=== PATIENT | male | born 1940 | race Caucasian/White ===

== ENCOUNTER 2016-05-17 16:06 | Inpatient (IN) | payer MEDICARE, MEDICAID ==
[~2016-05-17] VITALS: Ht 175.3 cm; Wt 70.0 kg
[~2016-05-17 16:06] MED LIST: AMLO-147 PO; ASPI81TA3 PO; ATOR40TA68 PO; BENA40TA41 PO; CHLO25TA13 PO; FAMO-18 PO; METO5TAB2 PO; MTF1000T PO; NOVO7030 SC; ONDA4TAB35 PO
[2016-05-17 16:18] VITALS: Ht 175.3 cm; Wt 70.0 kg
[2016-05-17] MEDS ORDERED: ONDANSETRON 4 MG INJ IV STA (17:19)
[2016-05-17] MEDS ORDERED: FAMOTIDINE 20 MG INJ IV STA (17:19)
[2016-05-17] MEDS ORDERED: SOD CHLORIDE 0.9% 1,000 ML IV STA (17:19)
[2016-05-17 17:33] LABS: HEMATOCRIT 31.3 % (42.0-52.0); HEMOGLOBIN 10.6 g/dl (14.0-18.0); MEAN CORPUSCULAR HEMOGLOBIN 29.5 pg (29.0-33.0); MEAN CORPUSCULAR HGB CONC 33.9 g/dl (32.0-37.0); MEAN CORPUSCULAR VOLUME 87.1 fl (82.0-101.0); MEAN PLATELET VOLUME 7.8 fl (7.4-10.4); PLATELET COUNT 322 10^3/UL (140-440); RED BLOOD COUNT 3.59 10^6/ul (4.70-6.10); RED CELL DISTRIBUTION WIDTH 12.6 % (11.5-14.5); UNCORRECTED WBC 16.4 10^3/ul (4.8-10.8); WHITE BLOOD COUNT 16.4 10^3/ul (4.8-10.8)
[2016-05-17 17:37] LABS: CONDITION 1; LH ANALYZER COMMENTS 1
[2016-05-17 17:46] LABS: ALBUMIN 4.1 g/dl (3.3-4.9); CHLORIDE 94 mmol/L (97-110)
[2016-05-17 17:47] LABS: POTASSIUM 4.9 mmol/L (3.5-5.1); SODIUM 137 mmol/L (135-144)
[2016-05-17 17:49] LABS: ANION GAP 20 (8-16); ASPARTATE AMINO TRANSFERASE 18 IU/L (15-46); BILIRUBIN,INDIRECT 0.5 mg/dl (0-1.1); BILIRUBIN,TOTAL 0.5 mg/dl (0.2-1.3); CARBON DIOXIDE 28 mmol/L (21-31); CREATININE 1.54 mg/dl (0.61-1.24); TOTAL PROTEIN 7.8 g/dl (6.1-8.1)
[2016-05-17 17:50] LABS: ALANINE AMINOTRANSFERASE 19 IU/L (13-69); ALKALINE PHOSPHATASE 108 IU/L (42-121); BLOOD UREA NITROGEN 32 mg/dl (7-20); CALCIUM 9.2 mg/dl (8.4-10.2)
[2016-05-17 17:59] LABS: INR 1.14; PROTIME 14.6 Sec (12.2-14.2); PT RATIO 1.1
[2016-05-17 18:00] LABS: PARTIAL THROMBOPLASTIN TIME 35.7 Sec (25.0-35.0)
[2016-05-17] MEDS ORDERED: CEFEPIME 2GM/50 ML (PMX) 50 ML IVPB STA (18:02)
[2016-05-17] MEDS ORDERED: SODIUM CHLORIDE 0.9% 1L BAG IV* STA (18:02)
[2016-05-17 18:05] LABS: AMYLASE < 30 U/L (11-123); GLUCOSE 441 mg/dl (70-220); TROPONIN-I < 0.010 ng/ml (0.00-0.12)
[2016-05-17 18:24] LABS: MONOCYTE # 0.5 10^3/ul (0.3-0.9); NEUTROPHIL # 14.8 10^3/ul (1.6-7.5)
[2016-05-17 18:26] LABS: ANISOCYTOSIS OCCASIONAL; PLATELET ESTIMATE PLT APPEAR ADEQUATE
--- NOTE | 2016-05-17 18:26 | ERA ---
ER Documentation Chief Complaint Date/Time DATE: 05/17/16 TIME: 18:07 Chief Complaint VOMITING , DIARRHEA , DIZZINESS X 2 DAYS HPI This is a 75-year-old male with a known history of insulin dependant diabetes mellitus and hypertension who presents to the emergency department complaining of 48 hours of multiple episodes of loose watery stools and nonbloody nonbilious emesis. The patient had a tactile fever with shaking and chills. He denies any abdominal pain. He has not been able to take his medications due to the emesis. The patient denies any shortness of breath at rest or exertion. The patient denies any chest pain or pressure that radiates to the neck or back or jaw. Roughly 1 month ago the patient was seen by the vascular surgeon Dr. Acevedo, as he has a known history of long-standing foot ulcers. The patient has known right lower extremity arthrosclerosis and a nonhealing diabetic right foot ulcer he has been wearing diabetic shoes as instructed and denies any pain or discharge from his foot ulcer at this time. 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 ROS All systems reviewed and are negative except as per history of present illness. Medications Home Meds Reported Medications Insulin Isophan/Regular (Humulin 70/30) 100 Units/Ml Susp, 40 UNIT SC AC BREAKFAST, EA 11/28/15 Benazepril Hcl* (Benazepril Hcl*) 40 Mg Tablet, 40 MG PO DAILY, #30 TAB 11/28/15 Atorvastatin* (Atorvastatin*) 40 Mg Tablet, 40 MG PO QHS, #30 TAB 07/24/15 Aspirin* (Aspirin* Chew) 81 Mg Tab.chew, 81 MG PO DAILY, TAB.CHEW 07/24/15 Chlorthalidone* (Chlorthalidone*) 25 Mg Tablet, 25 MG PO DAILY, TAB 07/24/15 Metformin* (Glucophage*) 1,000 Mg Tablet, 1000 MG PO BID, #60 TAB 07/24/15 Amlodipine Besylate* (Amlodipine Besylate*) 10 Mg Tablet, 10 MG PO DAILY, #30 TAB 07/24/15 Discontinued Reported Medications Insulin Isophan/Regular (Humulin 70/30) 100 Units/Ml Susp, 35 UNIT SC AC DINNER , EA 11/28/15 Discontinued Scripts Famotidine* (Pepcid*) 20 Mg Tablet, 20 MG PO BID for 30 Days, #60 TAB Prov:SERA THAKKAR V. [employer] SUPERVISOR 12/03/15 Metoclopramide Hcl (Reglan) 5 Mg Tab, 5 MG PO Q6H Y for VOMITTING, #30 TAB Prov:THAKKARSERA DEGROOT V. PARAMEDIC SUPERVISOR 12/03/15 Ondansetron Hcl* (Zofran* ODT) 4 mg -ODT Tab.disper, 4 MG PO Q4H Y for NAUSEA AND OR VOMITING, #30 TAB Prov:THAKKARABBIA V. PARAMEDIC SUPERVISOR 12/03/15 Ondansetron Hcl* (Zofran* ODT) 4 mg -ODT Tab.disper, 4 MG PO Q6 Y for NAUSEA AND /OR VOMITING, #20 TAB Prov:KELLEY ADDISON 11/28/15 Allergies Allergies: Coded Allergies: No Known Allergy (Unverified , 05/17/16) PMhx/Soc History of Surgery: Yes (Right 5th toe amputation) Anesthesia Reaction: No Hx Neurological Disorder: No Hx Respiratory Disorders: No Hx Cardiac Disorders: Yes (HTN) Hx Psychiatric Problems: No Hx Miscellaneous Medical Probl: Yes (Dyslipidemia, DM ) Hx Alcohol Use: No Hx Substance Use: No Hx Tobacco Use: No Smoking Status: Never smoker Physical Exam Vitals Vital Signs Date Time Temp Pulse Resp B/P Pulse Ox O2 Delivery O2 Flow Rate FiO2 05/17/16 20:00 89 16 153/75 99 Room Air 05/17/16 18:00 97 16 159/80 100 Room Air 05/17/16 17:24 97 159/79 100 Room Air 05/17/16 16:18 98.9 98 18 149/70 98 Physical Exam Constitutional:Well-developed. Well-nourished. HEENT:Normocephalic. Atraumatic.Pupils were equal round reactive to light. Dry mucous membranes.No tonsillar exudates. Neck: No nuchal rigidity. No lymphadenopathy. No posterior cervical spine tenderness or step-offs. Respiratory: Not using accessory muscles of respiration.Lungs were clear to auscultation bilaterally. No rhonchi. No rales. No wheezing. Cardiovascular: Regular rate regular rhythm.No murmurs. No rubs were appreciated.S1, S2 normal. Distal pulses are palpable 2+ bilaterally. GI: Abdomen was soft. Nontender. Non Distended. No pulsatile abdominal masses or bruits. No rebound. No guarding. Bowel sounds were present and normal. Muscle skeletal: Full range of motion of both the upper and lower extremities bilaterally.Normal muscle tone.No assymetrical calf tenderness or swelling. Skin: No petechia, no purpura. No lesions on the palms or the soles of the feet. No maculopapular rash. 2 cm x 2 cm well-circumscribed stage II ulcer on the plantar surface of the left fifth metatarsal. No purulent drainage. No tenderness fluctuance or induration NEURO: Patient was alert, awake, orientated x3.No facial droop. Gait observed and normal with no ataxia.Speech had regular rate and rhythm. No focal neurological deficits. Result Diagram: 05/17/16 1700 05/17/16 170 Results 24 hrs Laboratory Tests Test 05/17/16 17:00 05/17/16 18:03 Activated Partial Thromboplast Time 35.7Sec Alanine Aminotransferase (ALT/SGPT) 19IU/L Albumin 4.1g/dl Albumin/Globulin Ratio 1.10 Alkaline Phosphatase 108IU/L Amylase Level < 30U/L Anion Gap 20 Anisocytosis OCCASIONAL Aspartate Amino Transf (AST/SGOT) 18IU/L Band Neutrophils % 1.0% Blood Urea Nitrogen 32mg/dl Calcium Level 9.2mg/dl Carbon Dioxide Level 28mmol/L Chloride Level 94mmol/L Creatinine 1.54mg/dl Direct Bilirubin 0.00mg/dl Globulin 3.70g/dl Glucose Level 441mg/dl Hematocrit 31.3% Hemoglobin 10.6g/dl INR International Normalized Ratio 1.14 Indirect Bilirubin 0.5mg/dl Lactic Acid Level 1.2mmol/L Lipase 15U/L Lymphocytes # 1.010^3/ul Lymphocytes % 6.0% Mean Corpuscular Hemoglobin 29.5pg Mean Corpuscular Hemoglobin Concent 33.9g/dl Mean Corpuscular Volume 87.1fl Mean Platelet Volume 7.8fl Monocytes # 0.510^3/ul Monocytes % 3.0% Neutrophils # 14.810^3/ul Neutrophils % 90.0% Platelet Count 58619^3/UL Platelet Estimate PLT APPEAR ADEQUATE Potassium Level 4.9mmol/L Prothrombin Time 14.6Sec Prothrombin Time Ratio 1.1 Red Blood Count 3.5910^6/ul Red Cell Distribution Width 12.6% Sodium Level 137mmol/L Total Bilirubin 0.5mg/dl Total Protein 7.8g/dl Troponin I < 0.010ng/ml White Blood Count 16.410^3/ul Arterial Blood HCO3 26.1mmol/L Arterial Blood Base Excess 1.4mmol/L Arterial Blood Oxygen Saturation 95.7mmHG Maxime Test ACCEPTAB Arterial Blood Gas Puncture Site Right Radial Arterial Blood Carboxyhemoglobin 0.3% Arterial Blood Date Drawn 05/17/2016 7:06:08 PM Arterial Blood Methemoglobin 0.2% Arterial Blood pCO2 (Temp correct) 41.6mmhg Arterial Blood pH (Temp corrected) 7.416 Arterial Blood pO2 (Temp corrected) 82.0mmHG Blood Gas A-a O2 Differential 17.9mmHg Blood Gas Actual Respiration Rate 16 Blood Gas Modality ROOM AIR Blood Gas Notified Time 05/17/2016 7:18:46 PM Blood Gas Notified Whom JMD Blood Gas Specimen Source Blood arterial Blood Gas Temperature 37.0C FiO2 21.0% Oxyhemoglobin Percent 95.2% Total Hemoglobin 10.9g/dl Current Medications Medications (Trade) Dose Ordered Sig/Lynn Route PRN Reason Start Time Stop Time Status Last Admin Dose Admin Sodium Chloride (NS) 1,000 ml @ 1,000 mls/hr Q1H STAT IV 05/17/16 17:19 05/17/16 18:18 DC Ondansetron HCl (Zofran Inj) 4 mg ONCE STAT IV 05/17/16 17:19 05/17/16 17:20 DC 05/17/16 18:38 Famotidine (Pepcid Iv) 20 mg ONCE STAT IV 05/17/16 17:19 05/17/16 17:20 DC 05/17/16 18:38 Sodium Chloride 2110 ml 2,110 ml BOLUS OVER 2 HOURS STAT IV* 05/17/16 18:02 05/17/16 18:05 DC 05/17/16 18:42 Cefepime HCl 50 ml @ 100 mls/hr ONCE STAT IVPB 05/17/16 18:02 05/17/16 18:31 DC 05/17/16 18:38 Vancomycin HCl (Vancocin) 250 ml @ 125 mls/hr ONCE ONCE IVPB 05/17/16 18:30 05/17/16 20:29 DC 05/17/16 19:50 Insulin Human Lispro (Humalog) 10 unit ONCE STAT SC 05/17/16 20:21 05/17/16 20:26 DC 05/17/16 20:42 Procedures/MDM This patient presented to the emergency department with vomiting and diarrhea and a known history of insulin-dependent diabetes mellitus. The patient had clinical dehydration and IV access was established by nursing staff. The patient was placed on a waste reclaimer continuous pulse oximetry. The patient was hyperglycemic with a blood glucose of 441 with no ketosis. Arterial blood gas showed no acidosis. The patient's hyperglycemia was treated with IV fluid rehydration and subcutaneous insulin. 12 Lead EKG tracing ordered and reviewed by myself showed: Normal sinus rhythm of 99 bpm and no arrhythmia. HI interval normal. QRS duration normal. No ST segment elevation No ST segment depression. No changes consistent with acute ischemia. The patient had hyperglycemia without ketosis. Leukocytosis with white blood cell count of 16.4. The patient had SIRS criteria and therefore 2 sets of blood cultures urine cultures were obtained as well as a lactic acid. The patient received a 30 cc/kg bolus of normal saline as he did appear to be severely clinically dehydrated. Antiemetics are given to the patient which included Zofran and Reglan. The patient was started on empiric antibiotics for an unknown source of the leukocytosis given vancomycin and ceftriaxone Observation Note: Time: 6 hours Family Hx: No Hypertension Evaluation: Multiple exams showed no improvement of the patient's symptoms as the patient continued to have emesis despite the antiemetics. The patient had no reproducible abdominal pain or peritoneal signs and therefore did not obtain a CT scan of the abdomen. The patient will be admitted to the panel physician Dr. Raymundo in serious condition with an anticipated stay of greater than 2 midnights the medical surgical floor for IV fluid resuscitation. Departure Diagnosis: Primary Impression: Intractable nausea and vomiting Qualified Code: R11.2 - Intractable vomiting with nausea, unspecified vomiting type Additional Impression: Hyperglycemia without ketosis Condition: Serious ROSHNI DE PAZ May 17, 2016 18:23
[2016-05-17] MEDS ORDERED: VANCOMYCIN 1 GM (PMX) 250 ML IVPB ONE (18:30)
[2016-05-17 19:18] LABS: AADO2 Arterial 17.9 mmHg (7.0-24.0); Allen Test ACCEPTAB; Arterial Base Excess 1.4 mmol/L (-3.0-3); Arterial COHb 0.3 % (0.0-3.0); Arterial Fraction of Oxyhgb 95.2 % (93.0-99.0); Arterial HCO3 26.1 mmol/L (22.0-26.0); Arterial MetHb 0.2 % (0.0-1.5); Arterial Total Hemglobin 10.9 g/dl (12.0-18.0); MODE ROOM AIR
[2016-05-17] MEDS ORDERED: INSULIN LISPRO 100 UNIT/ML VIAL SC STA (20:21)
--- NOTE | 2016-05-17 21:05 | RADRPT ---
PROCEDURE: XR Chest. CLINICAL INDICATION: Hyperglycemia. TECHNIQUE: Single frontal view of the chest was obtained. COMPARISON: 12/02/2015 FINDINGS: The cardiomediastinal silhouette is normal size. Pulmonary vasculature is within normal limits. Th e lungs are clear. There is mild aortic calcification. No signs of pleural fluid or pneumothorax are seen. The osseous structures and soft tissues are unre markable. IMPRESSION: No evidence for active cardiopulmonary disease. Mild aortic calcification. RPTAT: HBST .Arcenio Kemp MD, MD Date Time Electronically viewed and signed by .Arcenio Kemp MD, on 05/17/2016 21:04 .T/
[2016-05-17] MEDS ORDERED: ONDANSETRON 4 MG INJ IV PRN ×2 (22:30→23:30)
[2016-05-17] MEDS ORDERED: ACETAMINOPHEN 325 MG TAB PO PRN ×2 (22:30→23:30)
[2016-05-17] MEDS ORDERED: METOCLOPRAMIDE 10 MG INJ IV ONE (22:30)
[2016-05-17 22:42] LABS: ADD UMIC YES; URINE BILIRUBIN (Dip) NEGATIVE (NEGATIVE); URINE BLOOD (Dip) 1+ (NEGATIVE); URINE COLOR LT. YELLOW (YELLOW); URINE GLUCOSE (Dip) >=1000 % (NEGATIVE); URINE KETONES (Dip) NEGATIVE (NEGATIVE); URINE LEUKOCYTE ESTERASE (Dip) NEGATIVE (NEGATIVE); URINE NITRITE (Dip) NEGATIVE (NEGATIVE); URINE TOTAL PROTEIN (Dip) 2+ (NEGATIVE); URINE UROBILINOGEN (Dip) 0.2 E.U./dL (0.1-1.0)
--- NOTE | 2016-05-17 23:18 | HP ---
Date/Time of Note Date/Time of Note DATE: 05/17/16 TIME: 23:02 Assessment/Plan VTE Prophylaxis VTE Prophylaxis Intervention: heparin Lines/Catheters IV [facility]from [facility]): Saline Lock Assessment/Plan Assessment/Plan 75 yo male with a past medical history of type II DM, dyslipidemia, essential hypertension, PVD, right foot chronic ulcer, who came in because of intractable nausea/vomiting and abdominal pain. 1. Intractable N/V - gastroenteritis vs diabetic gastroparesis - will admit the patient to med/surg, continue with zofran, start reglan, IVF, cipro/flagyl. If the abdominal pain does not get better, will obtain a CT abd/pelvis at that time 2. ARF - 2/2 to dehydration - acute on chronic - continue with IVF, renally adjust medications, avoid nephrotoxins 3. Leukocytosis 2/2 to #1 - monitor trend, continue with blood cultures, stool cultures, IV antibiotics 4. Type II DM - uncontrolled - will continue with ISS, Lantus/Novolog scheduled , check [id number] 5. Essential Hypertension - continue with ACEI/norvasc/chlorthalidone, hydralazine prn for sbp > 160 6. Dyslipidemia - continue with statin, check TSH/Lipid panel 7. Anemia of chronic CKD - will monitor H/H, if < 8 g/dL transfuse PRBCS 8. PVD - monitor for acute changes 9. Chronic right foot ulceration - plantar aspect - wound care consult 10. GI ppx - pepcid IV 11. DVT ppx - heparin answered all of his questions. as per clinical course. this history and physical took greater then 45 minutes to complete HPI/ROS Admit Date/Time Admit Date/Time 05/17/2016, 11:02 pm Hx of Present Illness 75 yo male with a past medical history of type II DM, dyslipidemia, essential hypertension, PVD, right foot chronic ulcer, who came in because of intractable nausea/vomiting and abdominal pain. He states that over the last several days, he has been having these symptoms. They are getting worse, with poor appetite, and cannot hold anything down. He does have fevers/chills, dizziness and malaise. Denies eating any new foods, recent travel or sick contacts. He had a similar presentation in November 2015, which he was admitted here for. Denies any chest pain, shortness of breath, loss of consciousness, headaches, urinary irregularities, hematuria, although he states it's very concentrated. ED course: IVF, Zofran, Vanc/Cefepime ROS 14 point review of systems completed, please refer to HPI for any positive findings PMH/Family/Social Past Medical History diabetic neuropathy, PVD Medical History: coronary artery disease, diabetes, high cholesterol, hypertension Past Surgical History right fifth toe amputation, repeat surgeries for diabetic foot ulcerations Family History Significant Family History: no pertinent family hx Social History Alcohol Use: none Smoking Status: Never smoker Drug Use: none Exam/Review of Systems Vital Signs Vitals Vital Signs Date Time Temp Pulse Resp B/P Pulse Ox O2 Delivery O2 Flow Rate FiO2 05/17/16 20:00 89 16 153/75 99 Room Air 05/17/16 16:18 98.9 Exam Exam Gen Pretty: moderate distress 2/2 to abdominal pain, AAOx4 HEENT: NC/AT, PERRLA, EOMI, no pharyngeal erythema, no tonsillar exudates, no lymphadenopathy, no JVD, no carotid bruits NECK: supple, no thyromegaly THORAX: symmetrical, no obvious deformities CV: S1S2, RRR, no M/G/R Lungs: CTAB no W/C/R/R Abd: soft, mild tenderness to palpation, ND, + hyperactive BS, no rebound, no guarding, neg HSM EXT: no edema, no ecchymosis, no clubbing, FROM Neuro: CN II-XII grossly intact, no focal deficits Psych:fair mood and affect Skin: C/D/I Labs Result Diagram: 05/17/16 1700 05/17/16 1700 Procedures Procedures CXR IMPRESSION: No evidence for active cardiopulmonary disease. Mild aortic calcification. PAULY JORDAN MD May 17, 2016 23:13
[2016-05-17 23:19] LABS: BACTERIA,URINE FEW; SQUAMOUS EPITHELIAL CELL,UR FEW
[2016-05-17] MEDS ORDERED: DOCUSATE SODIUM 100 MG CAP PO PRN (23:30)
[2016-05-17] MEDS ORDERED: morphine 2 MG INJ IV PRN (23:30)
[2016-05-17] MEDS ORDERED: NACL 0.9% 3 ML SYG IV SCH (23:30)
[2016-05-17] MEDS ORDERED: METOCLOPRAMIDE 10 MG INJ IV PRN (23:30)
[2016-05-18 00:21] LABS: CHOL/HDL RATIO 4.9 RATIO; MAGNESIUM 2.2 mg/dl (1.7-2.5)
[2016-05-18 00:52] LABS: THYROID STIMULATING HORMONE 1.62 MIU/L (0.465-4.680)
[2016-05-18 01:13] VITALS: PULSE 84; TEMP 98
[2016-05-18] MEDS: ACCUCHECK AT 2AM (Patients on SS coverage) XX SCH (02:00)
[2016-05-18 02:08] VITALS: BP 152/70; RESP 22
[2016-05-18] MEDS: SOD CHLORIDE 0.9% 1,000 ML IV SCH ×3 (02:32→22:53)
[2016-05-18] MEDS: metroNIDAZOLE 500 MG/NS (PMX) 100 ML IVPB SCH ×2 (05:39→13:46)
[2016-05-18 07:23] LABS: BASOPHIL # 0.1 10^3/ul (0.0-0.1); BASOPHILS % 0.5 % (0.0-2.0); EOSINOPHILS % 0.4 % (0.0-7.0); HEMATOCRIT 28.7 % (42.0-52.0); HEMOGLOBIN 9.8 g/dl (14.0-18.0); LYMPHOCYTES # 1.2 10^3/ul (0.8-2.9); LYMPHOCYTES % 11.1 % (15.0-51.0); MEAN CORPUSCULAR HEMOGLOBIN 30.1 pg (29.0-33.0); MEAN CORPUSCULAR HGB CONC 34.3 g/dl (32.0-37.0); MEAN CORPUSCULAR VOLUME 87.9 fl (82.0-101.0); MEAN PLATELET VOLUME 7.9 fl (7.4-10.4); MONOCYTE # 0.7 10^3/ul (0.3-0.9); NEUTROPHIL # 8.9 10^3/ul (1.6-7.5); PLATELET COUNT 222 10^3/UL (140-440); RED BLOOD COUNT 3.26 10^6/ul (4.70-6.10); UNCORRECTED WBC 10.9 10^3/ul (4.8-10.8); WHITE BLOOD COUNT 10.9 10^3/ul (4.8-10.8)
[2016-05-18 07:34] LABS: CONDITION 1
[2016-05-18 07:35] VITALS: BP 133/75; RESP 20
[2016-05-18 07:42] LABS: POTASSIUM 4.3 mmol/L (3.5-5.1)
[2016-05-18 07:44] LABS: CREATININE 1.1 mg/dl (0.61-1.24)
[2016-05-18 07:45] LABS: CALCIUM 8.5 mg/dl (8.4-10.2)
[2016-05-18] MEDS: INSULIN ASPART [NOVOLOG] 3 ML PEN SC SCH ×7 (08:13→20:39)
[2016-05-18] MEDS: HEPARIN 5,000 UNIT/0.5 ML SYG SC SCH ×2 (08:14→20:38)
[2016-05-18] MEDS: FAMOTIDINE 20 MG INJ IV SCH ×2 (08:15→20:34)
[2016-05-18] MEDS: ASPIRIN 81 MG TAB PO SCH (08:16)
[2016-05-18] MEDS: CHLORTHALIDONE 25 MG TAB PO SCH (08:16)
[2016-05-18] MEDS: BENAZEPRIL 40 MG TAB PO SCH (08:16)
[2016-05-18] MEDS: AMLODIPINE 10 MG TAB PO SCH (08:17)
[2016-05-18] MEDS ORDERED: CIPROFLOXACIN 400MG/D5W 200 ML IVPB SCH (09:00)
--- NOTE | 2016-05-18 15:12 | PN ---
Date/Time of Note Date/Time of Note DATE: 05/18/16 TIME: 15:06 Assessment/Plan VTE Prophylaxis VTE Prophylaxis Intervention: heparin Lines/Catheters IV Catheter Type (from Nrs): Peripheral IV Urinary Cath still in place: No Assessment/Plan Assessment/Plan 1. Acute gastroenteritis, improving, start diet, IVF 2. ARF - 2/2 to dehydration - acute, improved 3. Leukocytosis 2/2 to #1 - monitor trend, continue with blood cultures, stool cultures, IV antibiotics 4. Type II DM - uncontrolled - will continue with ISS, Lantus/Novolog scheduled 5. Essential Hypertension - continue with ACEI/norvasc/chlorthalidone, hydralazine prn for sbp > 160 6. Dyslipidemia - continue with statin, check TSH/Lipid panel 7. Anemia of chronic CKD - will monitor H/H, if < 8 g/dL transfuse PRBCS 8. PVD - monitor for acute changes 9. Chronic right foot ulceration - plantar aspect - wound care consult 10. GI ppx - pepcid IV 11. DVT ppx - heparin Subjective 24 Hr Interval Summary Free Text/Dictation no nausea or vomiting today, no diarrhea. still weak Exam/Review of Systems Vital Signs Vitals Vital Signs Date Time Temp Pulse Resp B/P Pulse Ox O2 Delivery O2 Flow Rate FiO2 05/18/16 07:35 97.9 95 20 133/75 97 05/18/16 02:08 Room Air Intake and Output 05/17/16 05/17/16 05/18/16 15:00 23:00 07:00 Intake Total 250 ml Balance 250 ml Exam Constitutional: alert, oriented, well developed Psych: nl mood/affect, no complaints Head: atraumatic, normocephalic Eyes: EOMI, PERRL, nl conjunctiva, nl lids, nl sclera ENMT: mucosa pink and moist, nl external ears & nose, nl lips & teeth, nl nasal mucosa & septum Neck: non-tender, supple Respiratory: clear to auscultation, normal air movement Cardiovascular: nl pulses, regular rate and rhythm Gastrointestinal: nl liver, spleen, other (mild epigatric tenderness), soft Musculoskeletal: nl extremities to inspection, nl gait and stance Extremities: normal pulses Neurological: VERIFICATION ENGINEER II-XII intact, nl mental status, nl speech, nl strength Skin: nl turgor, rash or lesions Lymph: nl lymph nodes Results Result Diagram: 05/18/16 0600 05/18/16 0600 Results 24 hrs Laboratory Tests Test 05/17/16 17:00 05/17/16 18:03 05/17/16 22:09 05/18/16 06:00 Activated Partial Thromboplast Time 35.7 H Alanine Aminotransferase (ALT/SGPT) 19 Albumin 4.1 Albumin/Globulin Ratio 1.10 Alkaline Phosphatase 108 Amylase Level < 30 Anion Gap 20 H 17 H Anisocytosis OCCASIONAL Aspartate Amino Transf (AST/SGOT) 18 Band Neutrophils % 1.0 Blood Urea Nitrogen 32 H 24 H Calcium Level 9.2 8.5 Carbon Dioxide Level 28 25 Chloride Level 94 L 104 # Cholesterol Level 168 Cholesterol/HDL Ratio 4.9 Creatinine 1.54 H 1.10 Direct Bilirubin 0.00 Globulin 3.70 H Glucose Level 441 *H 146 # HDL Cholesterol 34 Hematocrit 31.3 L 28.7 L Hemoglobin 10.6 L 9.8 L Hemoglobin A1c 10.4 H INR International Normalized Ratio 1.14 Indirect Bilirubin 0.5 LDL Cholesterol, Calculated 113 Lactic Acid Level 1.2 Lipase 15 L Lymphocytes # 1.0 1.2 Lymphocytes % 6.0 L 11.1 L Magnesium Level 2.2 Mean Corpuscular Hemoglobin 29.5 30.1 Mean Corpuscular Hemoglobin Concent 33.9 34.3 Mean Corpuscular Volume 87.1 87.9 Mean Platelet Volume 7.8 7.9 Monocytes # 0.5 0.7 Monocytes % 3.0 6.0 Neutrophils # 14.8 H 8.9 H Neutrophils % 90.0 H 82.0 H Platelet Count 322 # 222 # Platelet Estimate PLT APPEAR ADEQUATE Potassium Level 4.9 4.3 Prothrombin Time 14.6 H Prothrombin Time Ratio 1.1 Red Blood Count 3.59 L 3.26 L Red Cell Distribution Width 12.6 13.0 Sodium Level 137 142 Thyroid Stimulating Hormone (TSH) 1.620 Total Bilirubin 0.5 Total Protein 7.8 Triglycerides Level 106 Troponin I < 0.010 White Blood Count 16.4 #H 10.9 #H Arterial Blood HCO3 26.1 H Arterial Blood Base Excess 1.4 Arterial Blood Oxygen Saturation 95.7 Maxime Test ACCEPTAB Arterial Blood Gas Puncture Site Right Radial Arterial Blood Carboxyhemoglobin 0.3 Arterial Blood Date Drawn 05/17/2016 7:06:08 PM Arterial Blood Methemoglobin 0.2 Arterial Blood pCO2 (Temp correct) 41.6 Arterial Blood pH (Temp corrected) 7.416 Arterial Blood pO2 (Temp corrected) 82.0 Blood Gas A-a O2 Differential 17.9 Blood Gas Actual Respiration Rate 16 Blood Gas Modality ROOM AIR Blood Gas Notified Time 05/17/2016 7:18:46 PM Blood Gas Notified Whom JMD Blood Gas Specimen Source Blood arterial Blood Gas Temperature 37.0 FiO2 21.0 Oxyhemoglobin Percent 95.2 Total Hemoglobin 10.9 L Urine Bacteria FEW Urine Bilirubin NEGATIVE Urine Clarity CLEAR Urine Color LT. YELLOW Urine Glucose >=1000 Urine Granular Casts FEW Urine Hemoglobin 1+ H Urine Hyaline Casts MODERATE Urine Ketones NEGATIVE Urine Leukocyte Esterase NEGATIVE Urine Microscopic RBC 2-5 Urine Microscopic WBC 0-2 Urine Nitrite NEGATIVE Urine Specific [place] >=1.030 H Urine Squamous Epithelial Cells FEW Urine Total Protein 2+ H Urine Urobilinogen 0.2 E.U./dL Urine pH 5.5 Basophils # 0.1 Basophils % 0.5 Eosinophils # 0.0 Eosinophils % 0.4 Nucleated Red Blood Cells # 0.0 Nucleated Red Blood Cells % 0.0 Test 05/18/16 07:41 05/18/16 11:26 Bedside Glucose 174 241 H Medications Medications Current Medications Sodium Chloride (NS) 1,000 ml @ 75 mls/hr [id number] IV Last administered on 05/18 02:32; Admin Dose 75 MLS/HR; Start 05/17/16 at 23:08 Ondansetron HCl (Zofran Inj) 4 mg Q6H PRN IV NAUSEA AND/OR VOMITING; Start 03/23 at 23:30 Metoclopramide HCl (Reglan) 10 mg Q6H PRN IV NAUSEA AND/OR VOMITING; Start 03/23 at 23:30 Acetaminophen (Tylenol Tab) 650 mg Q6H PRN PO PAIN LEVEL 1-3 OR FEVER; Start at 23:30 Morphine Sulfate (morphine) 2 mg Q4H PRN IV SEVERE PAIN LEVEL 7-10; Start 05/17 at 23:30 Docusate Sodium (Colace) 100 mg Q12H PRN PO CONSTIPATION; Start 05/17/16 at 23: 30 Famotidine (Pepcid Iv) 20 mg Q12 IV Last administered on 05/18/16 08:15; Admin Dose 20 MG; Start 05/18/16 at 09:00 Heparin Sodium (Porcine) (Heparin (5000 Units/0.5 ml)) 5,000 unit Q12 SC Last administered on 05/18/16 08:14; Admin Dose 5,000 UNIT; Start 05/18/16 at 09:00 Insulin Glargine (Lantus) 20 unit HS SC ; Start 05/18/16 at 21:00 Amlodipine Besylate (Norvasc) 10 mg DAILY PO Last administered on 05/18/16 08: 17; Admin Dose 10 MG; Start 05/18/16 at 09:00 Aspirin (Aspirin) 81 mg DAILY PO Last administered on 05/18/16 08:16; Admin Dose 81 MG; Start 05/18/16 at 09:00 Atorvastatin Calcium (Lipitor) 40 mg QHS PO ; Start 05/18/16 at 21:00 Benazepril HCl (Lotensin) 40 mg DAILY PO Last administered on 05/18/16 08:16; Admin Dose 40 MG; Start 05/18/16 at 09:00 Chlorthalidone 25 mg 25 mg DAILY PO Last administered on 05/18/16 08:16; Admin Dose 25 MG; Start 05/18/16 at 09:00 Ciprofloxacin/ Dextrose 200 ml @ 200 mls/hr Q12 IVPB Last administered on 05/18 08:17; Admin Dose 200 MLS/HR; Start 05/18/16 at 09:00 Metronidazole (Flagyl 500 Mg (Pmx)) 100 ml @ 100 mls/hr Q8 IVPB Last administered on 05/18/16 13:46; Admin Dose 100 MLS/HR; Start 05/18/16 at 06:00 Diagnostic Test (Pha) (Accucheck) 1 ea 02 XX ; Start 05/18/16 at 02:00 NURY WARE MD May 18, 2016 15:12
[2016-05-18] MEDS: ATORVASTATIN 40 MG TAB PO SCH (20:34)
[2016-05-18 20:37] VITALS: BP 130/72; RESP 19
[2016-05-18] MEDS: INSULIN GLARGINE [LANtus] 3 ML PEN SC SCH (20:40)
[2016-05-18] MEDS ORDERED: INSULIN GLARGINE [LANtus] 3 ML PEN SC SCH (21:00)
[2016-05-19] MEDS: ACCUCHECK AT 2AM (Patients on SS coverage) XX SCH (02:00)
[2016-05-19 06:40] LABS: BASOPHILS % 0.4 % (0.0-2.0); EOSINOPHILS # 0.1 10^3/ul (0.0-0.5); EOSINOPHILS % 0.9 % (0.0-7.0); HEMOGLOBIN 9.6 g/dl (14.0-18.0); LYMPHOCYTES # 1.4 10^3/ul (0.8-2.9); MEAN CORPUSCULAR HEMOGLOBIN 29.9 pg (29.0-33.0); MEAN CORPUSCULAR HGB CONC 34.3 g/dl (32.0-37.0); MEAN CORPUSCULAR VOLUME 87.2 fl (82.0-101.0); MEAN PLATELET VOLUME 7.8 fl (7.4-10.4); MONOCYTE # 0.8 10^3/ul (0.3-0.9); MONOCYTES % 7.1 % (0.0-11.0); NEUTROPHIL # 8.7 10^3/ul (1.6-7.5); NEUTROPHILS % 78.6 % (39.0-77.0); PLATELET COUNT 306 10^3/UL (140-440); RED BLOOD COUNT 3.22 10^6/ul (4.70-6.10); RED CELL DISTRIBUTION WIDTH 12.7 % (11.5-14.5)
[2016-05-19 06:42] LABS: CONDITION 1
[2016-05-19 07:01] LABS: POTASSIUM 3.9 mmol/L (3.5-5.1)
[2016-05-19 07:04] LABS: CALCIUM 8.5 mg/dl (8.4-10.2); CREATININE 1.21 mg/dl (0.61-1.24)
[2016-05-19 08:35] VITALS: BP 144/64; RESP 20
[2016-05-19] MEDS: HEPARIN 5,000 UNIT/0.5 ML SYG SC SCH ×2 (08:50→20:17)
[2016-05-19] MEDS: INSULIN ASPART [NOVOLOG] 3 ML PEN SC SCH ×7 (08:51→20:19)
[2016-05-19] MEDS: ASPIRIN 81 MG TAB PO SCH (08:52)
[2016-05-19] MEDS: FAMOTIDINE 20 MG INJ IV SCH ×2 (08:52→20:19)
[2016-05-19] MEDS: AMLODIPINE 10 MG TAB PO SCH (08:54)
[2016-05-19] MEDS: CHLORTHALIDONE 25 MG TAB PO SCH (08:55)
[2016-05-19] MEDS: BENAZEPRIL 40 MG TAB PO SCH (08:55)
[2016-05-19] MEDS: SOD CHLORIDE 0.9% 1,000 ML IV SCH ×2 (12:20→15:08)
--- NOTE | 2016-05-19 14:46 | DS ---
Date/Time of Note Date/Time of Note DATE: 05/19/16 TIME: 14:40 Discharge Summary Admission/Discharge Info Admit Date/Time May 17, 2016 at 22:18 Discharge Date/Time Final Diagnosis 1. Acute gastroenteritis, resolved 2. ARF - 2/2 to dehydration - acute, improved 3. Dehydration, improved 4. Type II DM - controlled on insulins 5. Essential Hypertension - continue with ACEI/norvasc/chlorthalidone, hydralazine prn for sbp > 160 6. Dyslipidemia - continue with statin, check TSH/Lipid panel 7. Anemia of chronic CKD - will monitor H/H, if < 8 g/dL transfuse PRBCS 8. PVD - monitor for acute changes 9. Chronic right foot ulceration - plantar aspect - wound care consult 10. GI ppx - pepcid IV 11. DVT ppx - heparin Patient Condition: Stable Hx of Present Illness 75 yo male with a past medical history of type II DM, dyslipidemia, essential hypertension, PVD, right foot chronic ulcer, who came in because of intractable nausea/vomiting and abdominal pain and diarrhea. He states that over the last several days, he has been having these symptoms. They are getting worse, with poor appetite, and cannot hold anything down. He does have fevers/chills, dizziness and malaise. Denies eating any new foods, recent travel or sick contacts. Hospital Course Patient has acute gastroenteritis with dehydration. He got IVf rehydration. Symptoms improved. Regarding the DM treatment, metformin was discontinued on admission, insulins is changed to lantus. He got lantus 22 units last night, blood glucose has been under controlled. He will follow up with PCP for further insulin dosage adjustment. Home Meds Reported Medications Insulin Isophan/Regular (Humulin 70/30) 100 Units/Ml Susp, 40 UNIT SC AC BREAKFAST, EA 11/28/15 Benazepril Hcl* (Benazepril Hcl*) 40 Mg Tablet, 40 MG PO DAILY, #30 TAB 11/28/15 Atorvastatin* (Atorvastatin*) 40 Mg Tablet, 40 MG PO QHS, #30 TAB 07/24/15 Aspirin* (Aspirin* Chew) 81 Mg Tab.chew, 81 MG PO DAILY, TAB.CHEW 07/24/15 Chlorthalidone* (Chlorthalidone*) 25 Mg Tablet, 25 MG PO DAILY, TAB 3/19/16 Metformin* (Glucophage*) 1,000 Mg Tablet, 1000 MG PO BID, #60 TAB 07/24/15 Amlodipine Besylate* (Amlodipine Besylate*) 10 Mg Tablet, 10 MG PO DAILY, #30 TAB 07/24/15 Discontinued Reported Medications Insulin Isophan/Regular (Humulin 70/30) 100 Units/Ml Susp, 35 UNIT SC AC DINNER , EA 11/28/15 Discontinued Scripts Famotidine* (Pepcid*) 20 Mg Tablet, 20 MG PO BID for 30 Days, #60 TAB Prov:SERA THAKKAR V. TRAFFIC CONTROL OPERATOR 12/03/15 Metoclopramide Hcl (Reglan) 5 Mg Tab, 5 MG PO Q6H Y for VOMITTING, #30 TAB Prov:SERA THAKKAR V. TRAFFIC CONTROL OPERATOR 12/03/15 Ondansetron Hcl* (Zofran* ODT) 4 mg -ODT Tab.disper, 4 MG PO Q4H Y for NAUSEA AND OR VOMITING, #30 TAB Prov:SERA THAKKAR V. TRAFFIC CONTROL OPERATOR 12/03/15 Ondansetron Hcl* (Zofran* ODT) 4 mg -ODT Tab.disper, 4 MG PO Q6 Y for NAUSEA AND /OR VOMITING, #20 TAB Prov:KLELEY ADDISON 11/28/15 Follow-up Plan PCP follow up in one week Pending Labs Laboratory Tests Test 05/18/16 16:59 05/18/16 19:56 05/19/16 02:17 05/19/16 04:20 Bedside Glucose 275mg/dL (70-220) 339mg/dL (70-220) 152mg/dL (70-220) Anion Gap 14 (8-16) Basophils # 0.010^3/ul (0.0-0.1) Basophils % 0.4% (0.0-2.0) Blood Urea Nitrogen 25mg/dl (7-20) Calcium Level 8.5mg/dl (8.4-10.2) Carbon Dioxide Level 28mmol/L (21-31) Chloride Level 102mmol/L (97-110) Creatinine 1.21mg/dl (0.61-1.24) Eosinophils # 0.110^3/ul (0.0-0.5) Eosinophils % 0.9% (0.0-7.0) Glucose Level 88mg/dl (70-220) Hematocrit 28.0% (42.0-52.0) Hemoglobin 9.6g/dl (14.0-18.0) Lymphocytes # 1.410^3/ul (0.8-2.9) Lymphocytes % 13.0% (15.0-51.0) Mean Corpuscular Hemoglobin 29.9pg (29.0-33.0) Mean Corpuscular Hemoglobin Concent 34.3g/dl (32.0-37.0) Mean Corpuscular Volume 87.2fl (82.0-101.0) Mean Platelet Volume 7.8fl (7.4-10.4) Monocytes # 0.810^3/ul (0.3-0.9) Monocytes % 7.1% (0.0-11.0) Neutrophils # 8.710^3/ul (1.6-7.5) Neutrophils % 78.6% (39.0-77.0) Nucleated Red Blood Cells # 0.010^3/ul (0.0-0.0) Nucleated Red Blood Cells % 0.0/100WBC (0.0-0.0) Platelet Count 18657^3/UL (140-440) Potassium Level 3.9mmol/L (3.5-5.1) Red Blood Count 3.2210^6/ul (4.70-6.10) Red Cell Distribution Width 12.7% (11.5-14.5) Sodium Level 140mmol/L (135-144) White Blood Count 11.010^3/ul (4.8-10.8) Test 05/19/16 08:07 05/19/16 08:31 05/19/16 08:49 05/19/16 11:26 Bedside Glucose 61mg/dL (70-220) 110mg/dL (70-220) 168mg/dL (70-220) 199mg/dL (70-220) NURY WARE MD May 19, 2016 14:45
[2016-05-19] MEDS ORDERED: LANT3I SC (14:50)
[2016-05-19] MEDS ORDERED: NOVO3I SC (14:50)
--- NOTE | 2016-05-19 15:38 | PN ---
Date/Time of Note Date/Time of Note DATE: 05/19/16 TIME: 15:34 Assessment/Plan VTE Prophylaxis VTE Prophylaxis Intervention: heparin Lines/Catheters IV C[facility] Type (from [facility] Peripheral IV Urinary Cath still in place: No Assessment/Plan Chief Complaint/Hosp Course Patient has acute gastroenteritis with dehydration. He got IVf rehydration. Symptoms improved. Regarding the DM treatment, metformin was discontinued on admission, insulins is changed to lantus. He got lantus 22 units last night, blood glucose has been under controlled. He will follow up with PCP for further insulin dosage adjustment. Problems: Assessment/Plan 1. Chronic right foot ulceration - plantar aspect - awaiting for wound care and podiatry consult 2. Acute gastroenteritis, resolved 3. ARF - 2/2 to dehydration - acute, improved 4. Dehydration, improved 5. Type II DM - controlled on insulins 6. Essential Hypertension - continue with ACEI/norvasc/chlorthalidone, hydralazine prn for sbp > 160 7. Dyslipidemia - continue with statin, check TSH/Lipid panel 8. Anemia of chronic CKD - will monitor H/H, if < 8 g/dL transfuse PRBCS 9. PVD - monitor for acute changes 10. Chronic right foot ulceration - plantar aspect - wound care consult 11. GI ppx - pepcid IV 12. DVT ppx - heparin Subjective 24 Hr Interval Summary Free Text/Dictation some sore throat, afebrile Exam/Review of Systems Vital Signs Vitals Vital Signs Date Time Temp Pulse Resp B/P Pulse Ox O2 Delivery O2 Flow Rate FiO2 05/19/16 08:35 98.6 84 20 144/64 97 05/18/16 02:08 Room Air Intake and Output 05/18/16 05/18/16 05/19/16 15:00 23:00 07:00 Intake Total 850 ml 900 ml Output Total 530 ml Balance 850 ml 370 ml Exam Constitutional: alert, oriented, well developed Psych: nl mood/affect, no complaints Head: atraumatic, normocephalic Eyes: EOMI, PERRL, nl conjunctiva, nl lids, nl sclera ENMT: nl external ears & nose, nl lips & teeth, nl nasal mucosa & septum Neck: non-tender, supple Respiratory: clear to auscultation, normal air movement Cardiovascular: nl pulses, regular rate and rhythm Gastrointestinal: nl liver, spleen, non-tender, soft Extremities: normal pulses, other (right foot ulcer) Neurological: SUPERVISOR FELLING BUCKING II-XII intact, nl mental status, nl speech, nl strength Skin: nl turgor Lymph: nl lymph nodes Results Result Diagram: 05/19/1641905/19/16 0420 Results 24 hrs Laboratory Tests Test 05/18/16 16:59 05/18/16 19:56 05/19/16 02:17 05/19/16 04:20 Bedside Glucose 275 H 339 H 152 Anion Gap 14 Basophils # 0.0 Basophils % 0.4 Blood Urea Nitrogen 25 H Calcium Level 8.5 Carbon Dioxide Level 28 Chloride Level 102 Creatinine 1.21 Eosinophils # 0.1 Eosinophils % 0.9 Glucose Level 88 # Hematocrit 28.0 L Hemoglobin 9.6 L Lymphocytes # 1.4 Lymphocytes % 13.0 L Mean Corpuscular Hemoglobin 29.9 Mean Corpuscular Hemoglobin Concent 34.3 Mean Corpuscular Volume 87.2 Mean Platelet Volume 7.8 Monocytes # 0.8 Monocytes % 7.1 Neutrophils # 8.7 H Neutrophils % 78.6 H Nucleated Red Blood Cells # 0.0 Nucleated Red Blood Cells % 0.0 Platelet Count 306 # Potassium Level 3.9 Red Blood Count 3.22 L Red Cell Distribution Width 12.7 Sodium Level 140 White Blood Count 11.0 H Test 05/19/16 08:07 05/19/16 08:31 05/19/16 08:49 05/19/16 11:26 Bedside Glucose 61 L 110 168 199 Medications Medications Current Medications Sodium Chloride (NS) 1,000 ml @ 75 mls/hr [id number] IV Last administered on 05/19t 12:20; Admin Dose 75 MLS/HR; Start 05/17/16 at 23:08 Ondansetron HCl (Zofran Inj) 4 mg Q6H PRN IV NAUSEA AND/OR VOMITING; Start 03/23 at 23:30 Metoclopramide HCl (Reglan) 10 mg Q6H PRN IV NAUSEA AND/OR VOMITING; Start 03/23 at 23:30 Acetaminophen (Tylenol Tab) 650 mg Q6H PRN PO PAIN LEVEL 1-3 OR FEVER; Start at 23:30 Morphine Sulfate (morphine) 2 mg Q4H PRN IV SEVERE PAIN LEVEL 7-10; Start 05/17 at 23:30 Docusate Sodium (Colace) 100 mg Q12H PRN PO CONSTIPATION; Start 05/17/16 at 23: 30 Famotidine (Pepcid Iv) 20 mg Q12 IV Last administered on 05/19/16 08:52; Admin Dose 20 MG; Start 05/18/16 at 09:00 Heparin Sodium (Porcine) (Heparin (5000 Units/0.5 ml)) 5,000 unit Q12 SC Last administered on 05/19/16 08:50; Admin Dose 5,000 UNIT; Start 05/18/16 at 09:00 Amlodipine Besylate (Norvasc) 10 mg DAILY PO Last administered on 05/19/16 08: 54; Admin Dose 10 MG; Start 05/18/16 at 09:00 Aspirin (Aspirin) 81 mg DAILY PO Last administered on 05/19/16 08:52; Admin Dose 81 MG; Start 05/18/16 at 09:00 Atorvastatin Calcium (Lipitor) 40 mg QHS PO Last administered on 05/18/16 20: 34; Admin Dose 40 MG; Start 05/18/16 at 21:00 Benazepril HCl (Lotensin) 40 mg DAILY PO Last administered on 05/19/16 08:55; Admin Dose 40 MG; Start 05/18/16 at 09:00 Chlorthalidone (Hygroton) 25 mg DAILY PO Last administered on 05/19/16 08:55; Admin Dose 25 MG; Start 05/18/16 at 09:00 Diagnostic Test (Pha) (Accucheck) 1 ea 02 XX ; Start 05/18/16 at 02:00 Insulin Glargine (Lantus) 22 unit HS SC Last administered on 05/18/16 20:40; Admin Dose 22 UNIT; Start 05/18/16 at 21:00 NURY WARE MD May 19, 2016 15:38
--- NOTE | 2016-05-19 19:36 | CONS ---
Date/Time of Note Date/Time of Note DATE: 05/19/16 TIME: 19:35 Assessment/Plan Assessment/Plan Problems: (1) Non-pressure ulcer of right lower extremity with fat layer exposed Status: Acute (2) Diabetes, polyneuropathy (3) Peripheral vascular disease Additional Assessment/Plan Daily dressing changes right foot. Post op shoe to the right foot; partial weight bearing of right foot. Patient will be followed. Consultation Date/Type/Reason Admit Date/Time 05/17/2016, 11:02 pm Date of Consultation: May 18, 2016 Type of Consultation: Foot and ankle surgery Reason for Consultation Open wound right foot Hx of Present Illness Thank you very much for involving me in the care of this patient. As you very well know this is a pleasant 75-year-old male patient with past medical history significant for type 2 diabetes mellitus, dyslipidemia, essential hypertension, peripheral vascular disease, chronic open wound of the right foot, previous foot surgery who presented to the hospital with intractable nausea and vomiting along with abdominal pain. Patient was admitted for those complications. I was consulted to evaluate and render treatment for the right foot open wound. Patient regularly visits the [facility] and is familiar to my practice. As per history of present illness. Psychological: nl mood/affect, no complaints Past Medical History As per history of present illness. Medical History: coronary artery disease, diabetes, high cholesterol, hypertension Past Surgical History As per history of present illness. Social History Alcohol Use: none Smoking Status: Never smoker Drug Use: none Exam/Review of Systems Vital Signs Vitals Vital Signs Date Time Temp Pulse Resp B/P Pulse Ox O2 Delivery O2 Flow Rate FiO2 05/19/16 08:35 98.6 84 20 144/64 97 05/18/16 02:08 Room Air Intake and Output 05/18/16 05/18/16 05/19/16 15:00 23:00 07:00 Intake Total 850 ml 900 ml Output Total 530 ml Balance 850 ml 370 ml Exam Patient is in no acute distress laying supine in bed. Bandages were removed from the right foot. Open wound present on the plantar aspect of the right foot which does not seem to have gotten worse since his visit to the clinic. There is 100% red granulation tissue noted with surrounding hyperkeratosis. No undermining present and no fluctuance on palpation. Patient has tenderness to palpation of the area. Labs and imaging were reviewed. Results Result Diagram: 05/19/16 0420 05/19/16 0420 Results 24 hrs Laboratory Tests Test 05/18/16 19:56 05/19/16 02:17 05/19/16 04:20 05/19/16 08:07 Bedside Glucose 339 H 152 61 L Anion Gap 14 Basophils # 0.0 Basophils % 0.4 Blood Urea Nitrogen 25 H Calcium Level 8.5 Carbon Dioxide Level 28 Chloride Level 102 Creatinine 1.21 Eosinophils # 0.1 Eosinophils % 0.9 Glucose Level 88 # Hematocrit 28.0 L Hemoglobin 9.6 L Lymphocytes # 1.4 Lymphocytes % 13.0 L Mean Corpuscular Hemoglobin 29.9 Mean Corpuscular Hemoglobin Concent 34.3 Mean Corpuscular Volume 87.2 Mean Platelet Volume 7.8 Monocytes # 0.8 Monocytes % 7.1 Neutrophils # 8.7 H Neutrophils % 78.6 H Nucleated Red Blood Cells # 0.0 Nucleated Red Blood Cells % 0.0 Platelet Count 306 # Potassium Level 3.9 Red Blood Count 3.22 L Red Cell Distribution Width 12.7 Sodium Level 140 White Blood Count 11.0 H Test 05/19/16 08:31 05/19/16 08:49 05/19/16 11:26 05/19/16 17:07 Bedside Glucose 110 168 199 144 Medications Medications Current Medications Sodium Chloride (NS) 1,000 ml @ 75 mls/hr [id number] IV Last administered on 05/19t 12:20; Admin Dose 75 MLS/HR; Start 05/17/16 at 23:08 Ondansetron HCl (Zofran Inj) 4 mg Q6H PRN IV NAUSEA AND/OR VOMITING; Start 03/23 at 23:30 Metoclopramide HCl (Reglan) 10 mg Q6H PRN IV NAUSEA AND/OR VOMITING; Start 03/23 at 23:30 Acetaminophen (Tylenol Tab) 650 mg Q6H PRN PO PAIN LEVEL 1-3 OR FEVER; Start at 23:30 Morphine Sulfate (morphine) 2 mg Q4H PRN IV SEVERE PAIN LEVEL 7-10; Start 05/17 at 23:30 Docusate Sodium (Colace) 100 mg Q12H PRN PO CONSTIPATION; Start 05/17/16 at 23: 30 Famotidine (Pepcid Iv) 20 mg Q12 IV Last administered on 05/19/16 08:52; Admin Dose 20 MG; Start 05/18/16 at 09:00 Heparin Sodium (Porcine) (Heparin (5000 Units/0.5 ml)) 5,000 unit Q12 SC Last administered on 05/19/16 08:50; Admin Dose 5,000 UNIT; Start 05/18/16 at 09:00 Amlodipine Besylate (Norvasc) 10 mg DAILY PO Last administered on 05/19/16 08: 54; Admin Dose 10 MG; Start 05/18/16 at 09:00 Aspirin (Aspirin) 81 mg DAILY PO Last administered on 05/19/16 08:52; Admin Dose 81 MG; Start 05/18/16 at 09:00 Atorvastatin Calcium (Lipitor) 40 mg QHS PO Last administered on 05/18/16 20: 34; Admin Dose 40 MG; Start 05/18/16 at 21:00 Benazepril HCl (Lotensin) 40 mg DAILY PO Last administered on 05/19/16 08:55; Admin Dose 40 MG; Start 05/18/16 at 09:00 Chlorthalidone (Hygroton) 25 mg DAILY PO Last administered on 05/19/16 08:55; Admin Dose 25 MG; Start 05/18/16 at 09:00 Diagnostic Test (Pha) (Accucheck) 1 ea 02 XX ; Start 05/18/16 at 02:00 Insulin Glargine (Lantus) 22 unit HS SC Last administered on 05/18/16 20:40; Admin Dose 22 UNIT; Start 05/18/16 at 21:00 Collagenase (Santyl) 1 applic DAILY TOP ; Start 05/20/16 at 09:00 DEREK BARRAZA DPM May 19, 2016 19:36
[2016-05-19] MEDS: INSULIN GLARGINE [LANtus] 3 ML PEN SC SCH (20:18)
[2016-05-19] MEDS: ATORVASTATIN 40 MG TAB PO SCH (20:19)
[2016-05-19 20:31] VITALS: BP 154/75; RESP 20
[2016-05-20] MEDS: ACCUCHECK AT 2AM (Patients on SS coverage) XX SCH (02:00)
[2016-05-20] MEDS: SOD CHLORIDE 0.9% 1,000 ML IV SCH (04:33)
[2016-05-20] MEDS: INSULIN ASPART [NOVOLOG] 3 ML PEN SC SCH ×6 (07:26→17:37)
[2016-05-20 08:13] VITALS: BP 135/63; RESP 21; RESP 90
[2016-05-20] MEDS: FAMOTIDINE 20 MG INJ IV SCH (08:53)
[2016-05-20] MEDS: BENAZEPRIL 40 MG TAB PO SCH (08:53)
[2016-05-20] MEDS: AMLODIPINE 10 MG TAB PO SCH (08:53)
[2016-05-20] MEDS: ASPIRIN 81 MG TAB PO SCH (08:53)
[2016-05-20] MEDS: CHLORTHALIDONE 25 MG TAB PO SCH (08:53)
[2016-05-20] MEDS: HEPARIN 5,000 UNIT/0.5 ML SYG SC SCH (08:56)
[2016-05-20] MEDS ORDERED: COLLAGENASE 30 GM TUBE TOP SCH (09:00)
[2016-05-20] MEDS ORDERED: CIPR500T4 PO (14:48)
[2016-05-20] MEDS ORDERED: SAN30GM TOP (14:48)
[2016-05-20] MEDS ORDERED: LACT1CAP57 PO (14:48)
[2016-05-20] MEDS ORDERED: AMOX1TAB10 PO (14:48)
[2016-05-20] MEDS ORDERED: GLIP5TAB13 PO (14:48)
[2016-05-20] MEDS ORDERED: METO5TAB2 PO (14:51)
[2016-05-20] MEDS ORDERED: NOVO3I SC (16:34)
[2016-05-20] MEDS ORDERED: LANT3I SC (16:37)
--- NOTE | 2016-05-20 16:38 | PDOCDIS ---
Discharge Instructions DIAGNOSIS Discharge Diagnosis: Diabetic Gastropathy CONDITION Patient Condition: Stable HOME CARE INSTRUCTIONS: Diet Instructions: Reduced CalorieSpecial Diet: carbohydrate controlled, renal diet ACTIVITY: Activity Restrictions Comment: As tolerated OTHER ORDERS: Other Orders: Followup with your primary doctor within the next 1-2 weeks. If you don't have one please let someone know, we can give you resources that may help you pick one. You may also call your insurance company to assign one to you. Review your medication list with your nurse before leaving and if you need new prescriptions please let your nurse know. I may have made changes to your home medications or given you new prescriptions , please let your primary doctor know as well. Stay compliant with your medications and report any side effects to your PCP or pharmacist. Return to the ER if you have any concerns and cannot reach your doctors or call your insurance company, they usually have a nurse that can help you. STEFFANIE CHRISTY. May 20, 2016 16:38
--- NOTE | 2016-05-20 16:45 | DS ---
Date/Time of Note Date/Time of Note DATE: 05/20/16 TIME: 16:39 Discharge Summary Admission/Discharge Info Admit Date/Time May 17, 2016 at 22:18 Discharge Date/Time 05/20/15 Final Diagnosis 1. Diabetic gastropathy: improved 2. ARF 2/2 intractable N/V: resolved 3. SIRS 2/2 #1 : resolved 4. DM2 with poor control A1C 10.2: improved in-house control / regimen has been modified / patient and family educated 5. DM foot ulcer, minimally infected: on abx 6. HTN: controlled 7. Dyslipidemia: Statin 8. Chronic anemia: Stable Patient Condition: Stable Consults * Podiatry : Harinder Morales of Present Illness 75 yo male with a past medical history of type II DM, dyslipidemia, essential hypertension, PVD, right foot chronic ulcer, who came in because of intractable nausea/vomiting and abdominal pain and diarrhea. He states that over the last several days, he has been having these symptoms. They are getting worse, with poor appetite, and cannot hold anything down. He does have fevers/chills, dizziness and malaise. Denies eating any new foods, recent travel or sick contacts. . Hospital Course Patient has acute gastroenteritis with dehydration. He got IVf rehydration. Symptoms improved. Regarding the DM treatment, metformin was discontinued on admission, insulins is changed to lantus. He got lantus 22 units last night, blood glucose has been under control. He will follow up with PCP for further insulin dosage adjustment. Comorbidities were also aggressively managed as per Med records. Patient at this time has been evaluated and examined in detail and is assessed to be in stable condition and ready for discharge. . Home Meds Active Scripts Insulin Glargine* (Lantus*) 100 Unit/Ml Soln, 22 UNIT SC HS for 30 Days, 2 Refills Prov:STEFFANIE CHRISTY M. 05/20/16 Insulin Aspart* (Novolog Insulin Pen*) 100 Unit/Ml Soln, 7 UNIT SC WITH MEALS for 30 Days, 1 Refill Prov:STEFFANIE CHRISTY M. 05/20/16 Metoclopramide Hcl (Reglan) 5 Mg Tab, 5 MG PO Q8H for 14 Days, TAB Prov:STEFFANIE CHRISTY. 05/20/16 Glipizide* (Glipizide*) 5 Mg Tablet, 5 MG PO BID, #60 TAB Prov:STEFFANIE CHRISTY . 05/20/16 Collagenase* (Santyl*) 30 Gm Oint..gm., 1 APPLIC TOP DAILY, #30 G 1 Refill Prov:STEFFANIE CHRISTY. 05/20/16 Lactobacillus Rhamnosus* (Culturelle*) 1 Each Cap.sprink, 1 CAP PO BID for 7 Days, CAP Prov:STEFFANIE CHRSITY . 05/20/16 Ciprofloxacin Hcl* (Ciprofloxacin Hcl*) 500 Mg Tablet, 500 MG PO BID, #14 TAB Prov:STEFFANIE CHRISTY . 05/20/16 Amoxicillin/Potassium Clav (Amox-Clav 875-125 mg Tablet) 875-125 mg Tab, 1 TAB PO BID, #14 TAB Prov:STEFFANIE CHRISTY . 05/20/16 Reported Medications Benazepril Hcl* (Benazepril Hcl*) 40 Mg Tablet, 40 MG PO DAILY, #30 TAB 11/28/15 Atorvastatin* (Atorvastatin*) 40 Mg Tablet, 40 MG PO QHS, #30 TAB 07/24/15 Aspirin* (Aspirin* Chew) 81 Mg Tab.chew, 81 MG PO DAILY, TAB.CHEW 07/24/15 Chlorthalidone* (Chlorthalidone*) 25 Mg Tablet, 25 MG PO DAILY, TAB 07/24/15 Amlodipine Besylate* (Amlodipine Besylate*) 10 Mg Tablet, 10 MG PO DAILY, #30 TAB 07/24/15 Discontinued Reported Medications Insulin Isophan/Regular (Humulin 70/30) 100 Units/Ml Susp, 40 UNIT SC AC BREAKFAST, EA 11/28/15 Metformin* (Glucophage*) 1,000 Mg Tablet, 1000 MG PO BID, #60 TAB 07/24/15 Insulin Isophan/Regular (Humulin 70/30) 100 Units/Ml Susp, 35 UNIT SC AC DINNER , EA 11/28/15 Discontinued Scripts Famotidine* (Pepcid*) 20 Mg Tablet, 20 MG PO BID for 30 Days, #60 TAB Prov:SERA THAKKAR V. GRAPHIC DESIGN INTERN 12/03/15 Metoclopramide Hcl (Reglan) 5 Mg Tab, 5 MG PO Q6H Y for VOMITTING, #30 TAB Prov:SERA THAKKAR V. GRAPHIC DESIGN INTERN 12/03/15 Ondansetron Hcl* (Zofran* ODT) 4 mg -ODT Tab.disper, 4 MG PO Q4H Y for NAUSEA AND OR VOMITING, #30 TAB Prov:SERA THAKKAR V. GRAPHIC DESIGN INTERN 12/03/15 Ondansetron Hcl* (Zofran* ODT) 4 mg -ODT Tab.disper, 4 MG PO Q6 Y for NAUSEA AND /OR VOMITING, #20 TAB Prov:KELLEY ADDISON 11/28/15 Pending Labs Laboratory Tests Test 05/19/16 17:07 05/19/16 19:47 05/20/16 07:23 05/20/16 07:43 Bedside Glucose 144mg/dL (70-220) 116mg/dL (70-220) 65mg/dL (70-220) 73mg/dL (70-220) Test 05/20/16 08:10 05/20/16 08:47 05/20/16 12:00 Bedside Glucose 112mg/dL (70-220) 199mg/dL (70-220) 198mg/dL (70-220) STEFFANIE CHRISTY May 20, 2016 16:45
== END 2016-05-20 18:30 | disposition home health service (06) | DRG 74 ==
LOC: E/R 16:06 → PP2 22:18
PROVIDERS: ADMIT Student in an Organized Health Care Education/Training Program; ATTEND Student in an Organized Health Care Education/Training Program
DX: E11.43 Type 2 diabetes mellitus with diabetic autonomic (poly)neuropathy (principal); N17.9 Acute kidney failure, unspecified; E11.22 Type 2 diabetes mellitus with diabetic chronic kidney disease; E11.51 Type 2 diabetes mellitus with diabetic peripheral angiopathy without gangrene; L97.812 Non-pressure chronic ulcer of other part of right lower leg with fat layer exposed; E86.0 Dehydration; K52.9 Noninfective gastroenteritis and colitis, unspecified; K31.84 Gastroparesis; R11.2 Nausea with vomiting, unspecified; E11.65 Type 2 diabetes mellitus with hyperglycemia; I12.9 Hypertensive chronic kidney disease with stage 1 through stage 4 chronic kidney disease, or unspecified chronic kidney disease; N18.9 Chronic kidney disease, unspecified; E78.5 Hyperlipidemia, unspecified; D63.8 Anemia in other chronic diseases classified elsewhere; E11.621 Type 2 diabetes mellitus with foot ulcer; D63.1 Anemia in chronic kidney disease; I25.10 Atherosclerotic heart disease of native coronary artery without angina pectoris; E11.622 Type 2 diabetes mellitus with other skin ulcer; K31.9 Disease of stomach and duodenum, unspecified; Z79.4 Long term (current) use of insulin
CPT/HCPCS: 36600; 71010; 80048; 80053; 80061; 81001; 81003; 82150; 82803; 82962; 83036; 83605; 83690; 83735; 84443; 84484; 85025; 85610; 85730; 87040; 87081; 87086; 93005; 96372; 96374; 96375; J0744; J1815; J2405; J2765; J3370; J7030

== ENCOUNTER 2016-05-25 09:51 | Emergency (ER) | payer MEDICARE, MEDICAID ==
[~2016-05-25] VITALS: Wt 69.0 kg
[~2016-05-25 09:51] MED LIST changes: +AMOX1TAB10 PO; +CIPR500T4 PO; -FAMO-18 PO; +GLIP5TAB13 PO; +LACT1CAP57 PO; +LANT3I SC; -MTF1000T PO; +NOVO3I SC; -NOVO7030 SC; -ONDA4TAB35 PO; +SAN30GM TOP
--- NOTE | 2016-05-25 12:59 | ERA ---
ER Documentation Chief Complaint Date/Time DATE: 05/25/16 TIME: 12:58 Chief Complaint r foot pain and wound infection send by home health HPI 75-year-old man complaining of right foot pain and 2-3 days of recent purulent discharge from the interdigital webspaces. He does have a history of osteomyelitis to the distal metatarsals of the right foot and has had previous amputation. He denies recent antibiotic use, no difficulty ambulating, no fevers or chills, no chest pain or shortness of breath. ROS All systems reviewed and are negative except as per history of present illness. Medications Home Meds Active Scripts Sulfamethoxazole-Trimethoprim* (Bactrim* DS) 800-160 Mg Tab, 1 TAB PO BID for 14 Days, TAB Prov:NANDINI HOYT MD 05/25/16 Cephalexin* (Keflex*) 500 Mg Capsule, 500 MG PO TID for 14 Days, CAP Prov:NANDINI HOYT MD 05/25/16 Oxycodone HCl/Acetaminophen (Percocet 5-325 mg Tablet) 1 Each Tablet, 1 EACH PO TID for PAIN, #12 TAB Prov:NANDINI HOYT MD 05/25/16 Ibuprofen* (Ibuprofen*) 600 Mg Tablet, 600 MG PO Q8 for PAIN AND/OR INFLAMMATION , #30 TAB Prov:NANDINI HOYT MD 05/25/16 Insulin Glargine* (Lantus*) 100 Unit/Ml Soln, 22 UNIT SC HS for 30 Days, 2 Refills Prov:STEFFANIE CHRISTY 05/20/16 Insulin Aspart* (Novolog Insulin Pen*) 100 Unit/Ml Soln, 7 UNIT SC WITH MEALS for 30 Days, 1 Refill Prov:STEFFANIE CHRISTY 05/20/16 Metoclopramide Hcl (Reglan) 5 Mg Tab, 5 MG PO Q8H for 14 Days, TAB Prov:STEFFANIE CHRISTY 05/20/16 Glipizide* (Glipizide*) 5 Mg Tablet, 5 MG PO BID, #60 TAB Prov:STEFFANIE CHRISTY 05/20/16 Collagenase* (Santyl*) 30 Gm Oint..gm., 1 APPLIC TOP DAILY, #30 G 1 Refill Prov:STEFFANIE CHRISTY 05/20/16 Lactobacillus Rhamnosus* (Culturelle*) 1 Each Cap.sprink, 1 CAP PO BID for 7 Days, CAP Prov:STEFFANIE CHRISTY. 05/20/16 Ciprofloxacin Hcl* (Ciprofloxacin Hcl*) 500 Mg Tablet, 500 MG PO BID, #14 TAB Prov:STEFFANIE CHRISTY. 05/20/16 Amoxicillin/Potassium Clav (Amox-Clav 875-125 mg Tablet) 875-125 mg Tab, 1 TAB PO BID, #14 TAB Prov:STEFFANIE CHRISTY. 05/20/16 Reported Medications Benazepril Hcl* (Benazepril Hcl*) 40 Mg Tablet, 40 MG PO DAILY, #30 TAB 11/28/15 Atorvastatin* (Atorvastatin*) 40 Mg Tablet, 40 MG PO QHS, #30 TAB 07/24/15 Aspirin* (Aspirin* Chew) 81 Mg Tab.chew, 81 MG PO DAILY, TAB.CHEW 07/24/15 Chlorthalidone* (Chlorthalidone*) 25 Mg Tablet, 25 MG PO DAILY, TAB 07/24/15 Amlodipine Besylate* (Amlodipine Besylate*) 10 Mg Tablet, 10 MG PO DAILY, #30 TAB 07/24/15 Discontinued Reported Medications Insulin Isophan/Regular (Humulin 70/30) 100 Units/Ml Susp, 40 UNIT SC AC BREAKFAST, EA 11/28/15 Metformin* (Glucophage*) 1,000 Mg Tablet, 1000 MG PO BID, #60 TAB 07/24/15 Allergies Allergies: Coded Allergies: No Known Allergy (Unverified , 05/17/16) PMhx/Soc Diabetic polyneuropathy and diabetic gastroparesis, diabetes mellitus, previous renal failure, anemia, hypertension, peripheral vascular disease, chronic right foot ulceration, previous diagnosis of osteomyelitis of the metatarsals of the right foot and fifth metatarsal amputation on the right History of Surgery: Yes (rt 5th toe amputation) Anesthesia Reaction: No Hx Neurological Disorder: No Hx Respiratory Disorders: No Hx Cardiac Disorders: Yes (htn/pvd/) Hx Psychiatric Problems: No Hx Miscellaneous Medical Probl: No Hx Alcohol Use: No Hx Substance Use: No Hx Tobacco Use: No Smoking Status: Never smoker FmHx Family History: diabetes Physical Exam Vitals Vital Signs Date Time Temp Pulse Resp B/P Pulse Ox O2 Delivery O2 Flow Rate FiO2 05/25/16 13:00 98.2 84 18 133/67 100 Room Air 05/25/16 10:03 98.0 69 20 121/59 99 Physical Exam GENERAL: Well-developed, well-nourished, well-hydrated, in no apparent distress , looks nontoxic in appearance HEENT: Moist mucous membranes, pink conjunctiva, no cervical spine tenderness or step-off deformities, no goiter, no jaundice or icterus, extraocular movements intact without pain. No submandibular induration, and no pharyngeal erythema NEURO: Alert and oriented 3, cranial nerves II through XII intact bilaterally, pupils equal round reactive to light, no focal deficits or facial asymmetry, sensation intact distally Strength 5/5 in upper and lower extremities bilaterally CARDIAC: Regular rate and rhythm, no murmurs rubs or gallops LUNGS: Clear bilaterally no wheezing crackles or stridor ABDOMEN: Soft nontender, no guarding, no rigidity, no rebound, no psoas sign no obturator sign. Normoactive bowel sounds SKIN: There is mild purulent discharge from the interdigital webspaces between the fourth and third toes and third and second toe with mild erythematous changes, no muscle or bone, or tendon noted. There is a dry superficial ulceration to the plantar aspect of the right foot as well without surrounding skin erythema or discharge. Distal pulses are equal bilateral. EXTREMITIES: No clubbing cyanosis or edema, calves are bilaterally symmetrical, no Homans sign, no popliteal cord sign. Distal pulses equal and bilateral PSYCH: Normal affect without agitation or irritability Results 24 hrs Current Medications Medications (Trade) Dose Ordered Sig/Lynn Route PRN Reason Start Time Stop Time Status Last Admin Dose Admin Oxycodone/ Acetaminophen (Percocet (5/ 325)) 1 tab ONCE ONCE PO 05/25/16 13:00 05/25/16 13:01 DC 05/25/16 13:18 Cephalexin (Keflex) 500 mg ONCE ONCE PO 05/25/16 13:00 05/25/16 13:01 DC 05/25/16 13:18 Trimethoprim/ Sulfamethoxazole (Bactrim (Ds)) 1 tab ONCE ONCE PO 05/25/16 13:00 05/25/16 13:01 DC 05/25/16 13:18 Ceftriaxone Sodium (Rocephin) 1 gm ONCE ONCE IM 05/25/16 13:30 05/25/16 13:31 DC 05/25/16 13:18 Lidocaine (Xylocaine 1% (Mdv) 20 ml) 20 ml ONCE ONCE SC 05/25/16 13:30 05/25/16 13:31 DC 05/25/16 13:19 Procedures/MDM Foot was unwrapped and cleansed, antibiotic ointment was applied and foot was redressed with nonadherent gauze in between the toes and then foot was wrapped circumferentially with gauze secured in place with an Michael elastic bandage. Splint Assessment: Neurovascularly intact post splint placement with good fit. I administered Percocet 1 tablet p.o., cephalexin 500 mg p.o., Bactrim double strength 1 tablet p.o., and ceftriaxone 1 g intramuscular injection. X-ray right foot 3V Interpreted by me: Bones: No fracture Joints: Arthritic changes noted to the foot which appear chronic Foreign body: None, no soft tissue air Both verbal and written instructions were provided to the patient. He will follow-up with his return to vendor at the amputation prevention center on the fourth floor. He understood instructions. Patient feels much better at this time, and vital signs are normal, symptoms have improved. I did give strict instructions to return to the ED if symptoms continue or worsen, patient will otherwise follow-up with primary care physician. Patient understood instructions and agreed to plan. Departure Diagnosis: Primary Impression: Diabetic foot Additional Impressions: Diabetes, polyneuropathy Qualified Code: E11.42 - Diabetic polyneuropathy associated with type 2 diabetes mellitus Peripheral vascular disease Chronic osteomyelitis of foot Qualified Code: M86.671 - Chronic osteomyelitis of right foot Condition: Good NANDINI HOYT MD May 25, 2016 12:58
[2016-05-25 13:00] VITALS: BP 133/67; PULSE 84; RESP 18; TEMP 98.2
[2016-05-25] MEDS ORDERED: CEPHALEXIN 500 MG CAP PO ONE (13:00)
[2016-05-25] MEDS ORDERED: OXYCODONE/ACETAMINOPHEN (5/325) TAB PO ONE (13:00)
[2016-05-25] MEDS ORDERED: TRIMETHOPRIM/SULFAMETHOX (DS) TAB PO ONE (13:00)
[2016-05-25] MEDS ORDERED: LIDOCAINE 1% (MDV) 20 ML INJ SC ONE (13:30)
[2016-05-25] MEDS ORDERED: CEFTRIAXONE 1 GM INJ IM ONE (13:30)
--- NOTE | 2016-05-25 13:48 | RADRPT ---
PROCEDURE: XR Foot. CLINICAL INDICATION: Foot pain TECHNIQUE: Three views of the right foot are available for review. COMPARISON: 12/02/2015 FINDINGS: The patient has undergone prior amputation of the fifth ray with a remnant at the base. There is res orption and deformity of the first distal phalanx, likely sequelae of prior infection or trauma. Th is is unchanged appearance. No acute cortical destruction or soft tissue gas seen to suggest radiog raphic evidence for osteomyelitis. Moderate soft tissue swelling is seen about the forefoot. Vascu lar calcifications are present. IMPRESSION: 1. No interval change is seen at the osseous structures of the forefoot, with evidence of prior amp utation of the fifth metatarsal with a small remnant of the base. 2. There is new soft tissue swelling noted at the dorsum of the forefoot. Please note that MRI is mo re sensitive in evaluating for early changes of osteomyelitis. 3. Atherosclerotic vascular calcifications. RPTAT: TT .Oscar Carlos MD, MD Date Time Electronically viewed and signed by .Oscar Carlos MD, on 05/25/2016 13:48 .d/
[2016-05-25] MEDS ORDERED: CEPH-443 PO (13:55)
[2016-05-25] MEDS ORDERED: OXYC-279 PO (13:55)
[2016-05-25] MEDS ORDERED: IBUP-1542 PO (13:55)
[2016-05-25] MEDS ORDERED: BACTDS PO (13:55)
== END 2016-05-25 14:36 | disposition home or self-care (01) ==
LOC: E/R 09:51
DX: E11.42 Type 2 diabetes mellitus with diabetic polyneuropathy (principal); I73.9 Peripheral vascular disease, unspecified; M86.671 Other chronic osteomyelitis, right ankle and foot; E11.621 Type 2 diabetes mellitus with foot ulcer; L97.519 Non-pressure chronic ulcer of other part of right foot with unspecified severity; I10 Essential (primary) hypertension; Z79.84 Long term (current) use of oral hypoglycemic drugs; Z79.4 Long term (current) use of insulin; Z79.82 Long term (current) use of aspirin
CPT/HCPCS: 73630; 96372; 99284; J0696

== ENCOUNTER 2016-06-01 19:06 | Emergency (ER) | payer MEDICARE, MEDICAID ==
[~2016-06-01] VITALS: Ht 175.3 cm; Wt 67.0 kg
[~2016-06-01 19:06] MED LIST changes: +BACTDS PO; +CEPH-443 PO; +IBUP-1542 PO; +OXYC-279 PO
[2016-06-01 19:47] VITALS: Ht 175.3 cm; Wt 67.0 kg
[2016-06-01] MEDS ORDERED: SOD CHLORIDE 0.9% 500 ML IV STA (20:08)
--- NOTE | 2016-06-01 20:36 | ERD ---
ER Documentation Chief Complaint Date/Time DATE: 06/01/16 TIME: 20:32 Chief Complaint lower abd pain radaiting to back today HPI 75-year-old man referred here by all of [facility] after he was discharged for possible "kidney issues" he was seen and evaluated there today for chronic foot diabetic ulcer and it seems workup was unremarkable and he was discharged although in route nurse called and told them that there is a kidney abnormality , although patient and his son-in-law cannot be anymore specific. Patient was recently seen and evaluated for a diabetic foot ulcer and state they have been using antibiotics as prescribed with general improvement in his foot. He has had no vomiting or diarrhea, no blood per rectum or melena, no diarrhea, no chest pain or shortness of breath. Patient denies abdominal pain at this time. ROS All systems reviewed and are negative except as per history of present illness. Medications Home Meds Active Scripts Sulfamethoxazole-Trimethoprim* (Bactrim* DS) 800-160 Mg Tab, 1 TAB PO BID for 14 Days, TAB Prov:NANDINI HOYT MD 05/25/16 Cephalexin* (Keflex*) 500 Mg Capsule, 500 MG PO TID for 14 Days, CAP Prov:NANDINI HOYT MD 05/25/16 Ibuprofen* (Ibuprofen*) 600 Mg Tablet, 600 MG PO Q8 for PAIN AND/OR INFLAMMATION , #30 TAB Prov:NANDINI HOYT MD 05/25/16 Insulin Glargine* (Lantus*) 100 Unit/Ml Soln, 22 UNIT SC HS for 30 Days, 2 Refills Prov:STEFFANIE CHRISTY 05/20/16 Insulin Aspart* (Novolog Insulin Pen*) 100 Unit/Ml Soln, 7 UNIT SC WITH MEALS for 30 Days, 1 Refill Prov:STEFFANIE CHRISTY. 05/20/16 Metoclopramide Hcl (Reglan) 5 Mg Tab, 5 MG PO Q8H for 14 Days, TAB Prov:STEFFANIE CHRISTY 05/20/16 Glipizide* (Glipizide*) 5 Mg Tablet, 5 MG PO BID, #60 TAB Prov:STEFFANIE CHRISTY. 05/20/16 Collagenase* (Santyl*) 30 Gm Oint..gm., 1 APPLIC TOP DAILY, #30 G 1 Refill Prov:STEFFANIE CHRISTY. 05/20/16 Ciprofloxacin Hcl* (Ciprofloxacin Hcl*) 500 Mg Tablet, 500 MG PO BID, #14 TAB Prov:STEFFANIE CHRISTY 05/20/16 Amoxicillin/Potassium Clav (Amox-Clav 875-125 mg Tablet) 875-125 mg Tab, 1 TAB PO BID, #14 TAB Prov:STEFFANIE CHRISTY 05/20/16 Reported Medications Benazepril Hcl* (Benazepril Hcl*) 40 Mg Tablet, 40 MG PO DAILY, #30 TAB 11/28/15 Atorvastatin* (Atorvastatin*) 40 Mg Tablet, 40 MG PO QHS, #30 TAB 07/24/15 Aspirin* (Aspirin* Chew) 81 Mg Tab.chew, 81 MG PO DAILY, TAB.CHEW 07/24/15 Chlorthalidone* (Chlorthalidone*) 25 Mg Tablet, 25 MG PO DAILY, TAB 07/24/15 Amlodipine Besylate* (Amlodipine Besylate*) 10 Mg Tablet, 10 MG PO DAILY, #30 TAB 07/24/15 Discontinued Scripts Oxycodone HCl/Acetaminophen (Percocet 5-325 mg Tablet) 1 Each Tablet, 1 EACH PO TID for PAIN, #12 TAB Prov:NANDINI HOYT MD 05/25/16 Lactobacillus Rhamnosus* (Culturelle*) 1 Each Cap.sprink, 1 CAP PO BID for 7 Days, CAP Prov:STEFFANIE CHRISTY 05/20/16 Allergies Allergies: Coded Allergies: No Known Allergy (Unverified , 06/01/16) PMhx/Soc Diabetic polyneuropathy and diabetic gastroparesis, diabetes mellitus, previous renal failure, anemia, hypertension, peripheral vascular disease, chronic right foot ulceration, previous diagnosis of osteomyelitis of the metatarsals of the right foot and fifth metatarsal amputation on the right History of Surgery: Yes (rt 5th toe amputation) Anesthesia Reaction: No Hx Neurological Disorder: No Hx Respiratory Disorders: No Hx Cardiac Disorders: Yes (htn/pvd/) Hx Psychiatric Problems: No Hx Miscellaneous Medical Probl: No Hx Alcohol Use: No Hx Substance Use: No Hx Tobacco Use: No FmHx Family History: diabetes Physical Exam Vitals Vital Signs Date Time Temp Pulse Resp B/P Pulse Ox O2 Delivery O2 Flow Rate FiO2 06/01/16 21:43 98.3 85 20 165/85 100 Room Air 06/01/16 20:05 98.3 85 20 171/83 99 Room Air 06/01/16 19:47 98.3 80 20 201/93 100 Physical Exam GENERAL: Well-developed, well-nourished, well-hydrated, in no apparent distress , looks nontoxic in appearance, afebrile HEENT: Moist mucous membranes, pink conjunctiva. NEURO: Alert and oriented 3, pupils equal round reactive to light, gait normal , no focal deficits CARDIAC: Regular rate and rhythm, no murmurs rubs or gallops LUNGS: Clear bilaterally no wheezing crackles or stridor ABDOMEN: Soft nontender, no guarding, no rigidity, no rebound, no psoas sign no obturator sign. Normoactive bowel sounds SKIN: There is mild purulent discharge from the interdigital webspaces between the fourth and third toes and third and second toe with mild erythematous changes, no muscle or bone, or tendon noted. There is a dry superficial ulceration to the plantar aspect of the right foot as well without surrounding skin erythema or discharge. Distal pulses are equal bilateral. EXTREMITIES: No clubbing cyanosis or edema, calves are bilaterally symmetrical, no Homans sign, no popliteal cord sign. Distal pulses equal and bilateral PSYCH: Normal affect without agitation or irritability Result Diagram: 06/01/16203006/01/162030 Results 24 hrs Laboratory Tests Test 06/01/16 20:31 Alanine Aminotransferase (ALT/SGPT) 20IU/L Albumin 4.3g/dl Albumin/Globulin Ratio 0.95 Alkaline Phosphatase 109IU/L Anion Gap 20 Aspartate Amino Transf (AST/SGOT) 18IU/L Basophils # 0.010^3/ul Basophils % 0.5% Blood Morphology Comment Blood Urea Nitrogen 46mg/dl Calcium Level 9.7mg/dl Carbon Dioxide Level 29mmol/L Chloride Level 91mmol/L Creatinine 1.50mg/dl Direct Bilirubin 0.00mg/dl Eosinophils # 0.010^3/ul Eosinophils % 0.4% Globulin 4.50g/dl Glucose Level 301mg/dl Hematocrit 31.4% Hemoglobin 10.7g/dl Indirect Bilirubin 0.0mg/dl Lipase 46U/L Lymphocytes # 1.310^3/ul Lymphocytes % 15.1% Mean Corpuscular Hemoglobin 29.2pg Mean Corpuscular Hemoglobin Concent 34.1g/dl Mean Corpuscular Volume 85.6fl Mean Platelet Volume 7.3fl Monocytes # 0.410^3/ul Monocytes % 4.1% Neutrophils # 7.010^3/ul Neutrophils % 79.9% Nucleated Red Blood Cells # 0.010^3/ul Nucleated Red Blood Cells % 0.0/100WBC Platelet Count 95171^3/UL Potassium Level 5.4mmol/L Red Blood Count 3.6710^6/ul Red Cell Distribution Width 12.5% Sodium Level 135mmol/L Total Bilirubin 0.0mg/dl Total Protein 8.8g/dl White Blood Count 8.810^3/ul Current Medications Medications (Trade) Dose Ordered Sig/Lynn Route PRN Reason Start Time Stop Time Status Last Admin Dose Admin Sodium Chloride (NS) 500 ml @ 500 mls/hr Q1H STAT IV 06/01/16 20:08 06/01/16 21:07 DC 06/01/16 20:33 Procedures/MDM IV line was established patient was placed on personnel monitor rhythm strip revealed a sinus rhythm at about 70 bpm with upright P and T waves. Patient was afebrile. CBC was unremarkable, electrolytes revealed dehydration with a BUN/creatinine of 46/1.5, slight elevation in potassium of 5.4. Liver function tests were unremarkable. I reviewed the patient's past medical record and his previous creatinine levels have been anywhere from 1.2-1.8, if there is no significant elevation patient will be discharged for follow-up with PMD. I recommended oral rehydration therapy at home follow-up for his creatinine and potassium levels. Differential diagnoses considered, included but not limited to acute coronary syndrome, pulmonary embolism, aortic dissection, abdominal aortic aneurysm, sepsis, stroke, meningitis, encephalitis, pneumonia, appendicitis, cholecystitis , bowel obstruction, pyelonephritis, nephrolithiasis, cystitis, as well as metabolic, hematologic, and electrolyte abnormalities. As well as abscess, cellulitis, fractures, and dislocations. Patient feels much better at this time, and vital signs are normal, symptoms have improved. I did give strict instructions to return to the ED if symptoms continue or worsen, patient will otherwise follow-up with primary care physician. Patient understood instructions and agreed to plan. Departure Diagnosis: Primary Impression: Diabetic foot infection Additional Impression: Dehydration Condition: Good ZOHRABIAN,NANDINI MD Jun 01, 2016 20:36
[2016-06-01 21:00] LABS: BASOPHILS % 0.5 % (0.0-2.0); EOSINOPHILS % 0.4 % (0.0-7.0); HEMATOCRIT 31.4 % (42.0-52.0); HEMOGLOBIN 10.7 g/dl (14.0-18.0); LYMPHOCYTES # 1.3 10^3/ul (0.8-2.9); LYMPHOCYTES % 15.1 % (15.0-51.0); MEAN CORPUSCULAR HEMOGLOBIN 29.2 pg (29.0-33.0); MEAN CORPUSCULAR HGB CONC 34.1 g/dl (32.0-37.0); MEAN CORPUSCULAR VOLUME 85.6 fl (82.0-101.0); MEAN PLATELET VOLUME 7.3 fl (7.4-10.4); MONOCYTE # 0.4 10^3/ul (0.3-0.9); MONOCYTES % 4.1 % (0.0-11.0); NEUTROPHILS % 79.9 % (39.0-77.0); PLATELET COUNT 413 10^3/UL (140-440); RED BLOOD COUNT 3.67 10^6/ul (4.70-6.10); RED CELL DISTRIBUTION WIDTH 12.5 % (11.5-14.5); UNCORRECTED WBC 8.8 10^3/ul (4.8-10.8); WHITE BLOOD COUNT 8.8 10^3/ul (4.8-10.8)
[2016-06-01 21:09] LABS: ALBUMIN 4.3 g/dl (3.3-4.9)
[2016-06-01 21:10] LABS: POTASSIUM 5.4 mmol/L (3.5-5.1)
[2016-06-01 21:12] LABS: ALBUMIN/GLOBULIN RATIO 0.95; CREATININE 1.5 mg/dl (0.61-1.24); TOTAL PROTEIN 8.8 g/dl (6.1-8.1)
[2016-06-01 21:13] LABS: CALCIUM 9.7 mg/dl (8.4-10.2)
[2016-06-01 21:29] LABS: CONDITION 1
[2016-06-01 21:43] VITALS: BP 165/85; PULSE 85; RESP 20; TEMP 98.3
== END 2016-06-01 21:49 | disposition home or self-care (01) ==
LOC: E/R 19:06
DX: E11.621 Type 2 diabetes mellitus with foot ulcer (principal); E86.0 Dehydration; I10 Essential (primary) hypertension; L97.519 Non-pressure chronic ulcer of other part of right foot with unspecified severity; Z79.84 Long term (current) use of oral hypoglycemic drugs; Z79.82 Long term (current) use of aspirin; Z79.4 Long term (current) use of insulin
CPT/HCPCS: 80053; 83690; 85025; J7040; 36415

== ENCOUNTER 2016-06-29 08:02 | Inpatient (IN) | payer MEDICARE, MEDICAID ==
[~2016-06-29] VITALS: Ht 162.6 cm; Wt 60.2 kg
[~2016-06-29 08:02] MED LIST changes: -LACT1CAP57 PO; -OXYC-279 PO
--- NOTE | 2016-06-29 08:44 | ERD ---
ER Documentation Chief Complaint Date/Time DATE: 06/29/16 TIME: 08:31 Chief Complaint Wound on rt foot x 2 days here for wound check ROS All systems reviewed and are negative except as per history of present illness. Medications Home Meds Active Scripts Sulfamethoxazole-Trimethoprim* (Bactrim* DS) 800-160 Mg Tab, 1 TAB PO BID for 14 Days, TAB Prov:NANDINI HOYT MD 05/25/16 Cephalexin* (Keflex*) 500 Mg Capsule, 500 MG PO TID for 14 Days, CAP Prov:NANDINI HOYT MD 05/25/16 Ibuprofen* (Ibuprofen*) 600 Mg Tablet, 600 MG PO Q8 for PAIN AND/OR INFLAMMATION , #30 TAB Prov:NANDINI HOYT MD 05/25/16 Insulin Glargine* (Lantus*) 100 Unit/Ml Soln, 22 UNIT SC HS for 30 Days, 2 Refills Prov:WESTLEYADIAÁNGEL Lipscomb 05/20/16 Insulin Aspart* (Novolog Insulin Pen*) 100 Unit/Ml Soln, 7 UNIT SC WITH MEALS for 30 Days, 1 Refill Prov:WESTLEYADIAÁNGEL Martins. 05/20/16 Metoclopramide Hcl (Reglan) 5 Mg Tab, 5 MG PO Q8H for 14 Days, TAB Prov:ADIA CHRISTYÁNGEL Martins. 05/20/16 Glipizide* (Glipizide*) 5 Mg Tablet, 5 MG PO BID, #60 TAB Prov:DELORES CHRISTYShiva . 05/20/16 Collagenase* (Santyl*) 30 Gm Oint..gm., 1 APPLIC TOP DAILY, #30 G 1 Refill Prov:WESTLEYADIAÁNGEL Lipscomb 05/20/16 Ciprofloxacin Hcl* (Ciprofloxacin Hcl*) 500 Mg Tablet, 500 MG PO BID, #14 TAB Prov:DELORES CHRISTYShiva aHrpreet 05/20/16 Amoxicillin/Potassium Clav (Amox-Clav 875-125 mg Tablet) 875-125 mg Tab, 1 TAB PO BID, #14 TAB Prov:DELORES CHRISTYShiva Eliezer. 05/20/16 Reported Medications Benazepril Hcl* (Benazepril Hcl*) 40 Mg Tablet, 40 MG PO DAILY, #30 TAB 11/28/15 Atorvastatin* (Atorvastatin*) 40 Mg Tablet, 40 MG PO QHS, #30 TAB 07/24/15 Aspirin* (Aspirin* Chew) 81 Mg Tab.chew, 81 MG PO DAILY, TAB.CHEW 07/24/15 Chlorthalidone* (Chlorthalidone*) 25 Mg Tablet, 25 MG PO DAILY, TAB 07/24/15 Amlodipine Besylate* (Amlodipine Besylate*) 10 Mg Tablet, 10 MG PO DAILY, #30 TAB 07/24/15 Allergies Allergies: Coded Allergies: No Known Allergy (Unverified , 06/29/16) PMhx/Soc History of Surgery: Yes (rt 5th toe amputation) Anesthesia Reaction: No Hx Neurological Disorder: No Hx Respiratory Disorders: No Hx Cardiac Disorders: Yes (htn/pvd/) Hx Psychiatric Problems: No Hx Miscellaneous Medical Probl: No Hx Alcohol Use: No Hx Substance Use: No Hx Tobacco Use: No Smoking Status: Never smoker Physical Exam Vitals Vital Signs Date Time Temp Pulse Resp B/P Pulse Ox O2 Delivery O2 Flow Rate FiO2 06/29/16 08:08 97.7 89 18 142/67 98 Results 24 hrs Current Medications Medications (Trade) Dose Ordered Sig/Lynn Route PRN Reason Start Time Stop Time Status Last Admin Dose Admin Sodium Chloride 2120 ml 2,120 ml BOLUS OVER 2 HOURS STAT IV* 06/29/16 08:54 06/29/16 08:56 DC Vancomycin HCl 250 ml @ 125 mls/hr ONCE STAT IVPB 06/29/16 08:54 06/29/16 10:53 Piperacillin Sod/ Tazobactam Sod (Zosyn 3.375gm/ 100 ml (Pmx)) 100 ml @ 200 mls/hr ONCE STAT IVPB 06/29/16 08:54 06/29/16 09:23 COSTA ISIDRO PA-C Jun 29, 2016 08:44 On re-examination, patient resting in no distress, stable vital signs, reports feeling better and safe for discharge with outpatient follow up with PMD in 1-2 days. Patient given return precautions. COSTA ISIDRO PA-C Jun 29, 2016 08:44
[2016-06-29] MEDS ORDERED: SODIUM CHLORIDE 0.9% 1L BAG IV* STA (08:54)
[2016-06-29] MEDS ORDERED: VANCOMYCIN 1 GM (PMX) 250 ML IVPB STA (08:54)
[2016-06-29] MEDS ORDERED: PIPER-TAZO 3.375 GM IV (PMX) 100 ML IVPB STA (08:54)
--- NOTE | 2016-06-29 09:01 | ERA ---
ER Documentation Chief Complaint Date/Time DATE: 06/29/16 TIME: 09:01 Chief Complaint Wound on rt foot x 2 days here for wound check HPI 75-year-old male with a history of diabetes and diabetic foot ulcer presents to the emergency department for follow-up on foot ulcers of his right foot. Patient states that he recently completed an antibiotic course that was prescribed here. Patient states he is being visited by a home health nurse daily and has received ongoing wound care and dressing changes consistently. Patient states the reason for his visit is due to concern from his home health nurse. Nurse believes that his wound is not getting better and is concerned about fever and chills experienced at home. Patient denies any pain at the moment and rates his pain is 0 out of 10 but notes that he has been experiencing some pain while at home. Patient afebrile upon arrival. ROS All systems reviewed and are negative except as per history of present illness. Medications Home Meds Active Scripts Sulfamethoxazole-Trimethoprim* (Bactrim* DS) 800-160 Mg Tab, 1 TAB PO BID for 14 Days, TAB Prov:NANDINI HOYT MD 05/25/16 Cephalexin* (Keflex*) 500 Mg Capsule, 500 MG PO TID for 14 Days, CAP Prov:NANDINI HOYT MD 05/25/16 Ibuprofen* (Ibuprofen*) 600 Mg Tablet, 600 MG PO Q8 for PAIN AND/OR INFLAMMATION , #30 TAB Prov:NANDINI HOYT MD 05/25/16 Insulin Glargine* (Lantus*) 100 Unit/Ml Soln, 22 UNIT SC HS for 30 Days, 2 Refills Prov:STEFFANIE CHRISTY 05/20/16 Insulin Aspart* (Novolog Insulin Pen*) 100 Unit/Ml Soln, 7 UNIT SC WITH MEALS for 30 Days, 1 Refill Prov:STEFFANIE CHRISTY 05/20/16 Metoclopramide Hcl (Reglan) 5 Mg Tab, 5 MG PO Q8H for 14 Days, TAB Prov:STEFFANIE CHRISTY 05/20/16 Glipizide* (Glipizide*) 5 Mg Tablet, 5 MG PO BID, #60 TAB Prov:STEFFANIE CHRISTY 05/20/16 Collagenase* (Santyl*) 30 Gm Oint..gm., 1 APPLIC TOP DAILY, #30 G 1 Refill Prov:STEFFANIE CHRISTY. 05/20/16 Ciprofloxacin Hcl* (Ciprofloxacin Hcl*) 500 Mg Tablet, 500 MG PO BID, #14 TAB Prov:STEFFANIE CHRISTY 05/20/16 Amoxicillin/Potassium Clav (Amox-Clav 875-125 mg Tablet) 875-125 mg Tab, 1 TAB PO BID, #14 TAB Prov:STEFFANIE CHRISTY 05/20/16 Reported Medications Benazepril Hcl* (Benazepril Hcl*) 40 Mg Tablet, 40 MG PO DAILY, #30 TAB 11/28/15 Atorvastatin* (Atorvastatin*) 40 Mg Tablet, 40 MG PO QHS, #30 TAB 07/24/15 Aspirin* (Aspirin* Chew) 81 Mg Tab.chew, 81 MG PO DAILY, TAB.CHEW 07/24/15 Chlorthalidone* (Chlorthalidone*) 25 Mg Tablet, 25 MG PO DAILY, TAB 07/24/15 Amlodipine Besylate* (Amlodipine Besylate*) 10 Mg Tablet, 10 MG PO DAILY, #30 TAB 07/24/15 Allergies Allergies: Coded Allergies: No Known Allergy (Unverified , 06/29/16) PMhx/Soc History of Surgery: Yes (rt 5th toe amputation) Anesthesia Reaction: No Hx Neurological Disorder: No Hx Respiratory Disorders: No Hx Cardiac Disorders: Yes (htn/pvd/) Hx Psychiatric Problems: No Hx Miscellaneous Medical Probl: No Hx Alcohol Use: No Hx Substance Use: No Hx Tobacco Use: No Smoking Status: Never smoker FmHx Family History: diabetes Physical Exam Vitals Vital Signs Date Time Temp Pulse Resp B/P Pulse Ox O2 Delivery O2 Flow Rate FiO2 06/29/16 08:08 97.7 89 18 142/67 98 Physical Exam Const: No acute distress Head: Atraumatic Eyes: Normal Conjunctiva ENT: Normal External Ears, Nose and Mouth. Neck: Full range of motion..~ No meningismus. Resp: Clear to auscultation bilaterally Cardio: Regular rate and rhythm, no murmurs Abd: Soft, non tender, non distended. Normal bowel sounds Skin: Redness and skin breakdown between the fourth and fifth toes of the right foot, drainage Back: No midline or flank tenderness Ext: No cyanosis, or edema Neur: Awake and alert Psych: Normal Mood and Affect Result Diagram: 06/29/16 0900 06/29/16 0900 Results 24 hrs Laboratory Tests Test 06/29/16 09:00 Activated Partial Thromboplast Time 37.4Sec Alanine Aminotransferase (ALT/SGPT) 16IU/L Albumin 4.0g/dl Albumin/Globulin Ratio 1.21 Alkaline Phosphatase 79IU/L Anion Gap 19 Aspartate Amino Transf (AST/SGOT) 18IU/L Basophils # 0.010^3/ul Basophils % 0.5% Blood Urea Nitrogen 25mg/dl Calcium Level 9.0mg/dl Carbon Dioxide Level 23mmol/L Chloride Level 104mmol/L Creatinine 1.02mg/dl Direct Bilirubin 0.00mg/dl Eosinophils # 0.210^3/ul Eosinophils % 2.8% Globulin 3.30g/dl Glucose Level 203mg/dl Hematocrit 29.3% Hemoglobin 9.7g/dl INR International Normalized Ratio 1.08 Indirect Bilirubin 0.2mg/dl Lactic Acid Level 1.7mmol/L Lymphocytes # 1.510^3/ul Lymphocytes % 19.3% Mean Corpuscular Hemoglobin 29.4pg Mean Corpuscular Hemoglobin Concent 33.1g/dl Mean Corpuscular Volume 88.8fl Mean Platelet Volume 9.1fl Monocytes # 0.510^3/ul Monocytes % 6.1% Neutrophils # 5.410^3/ul Neutrophils % 71.0% Nucleated Red Blood Cells # 0.010^3/ul Nucleated Red Blood Cells % 0.0/100WBC Platelet Count 36839^3/UL Potassium Level 4.6mmol/L Prothrombin Time 14.0Sec Prothrombin Time Ratio 1.1 Red Blood Count 3.3010^6/ul Red Cell Distribution Width 13.5% Sodium Level 141mmol/L Total Bilirubin 0.2mg/dl Total Protein 7.3g/dl Troponin I < 0.010ng/ml White Blood Count 7.610^3/ul Current Medications Medications (Trade) Dose Ordered Sig/Lynn Route PRN Reason Start Time Stop Time Status Last Admin Dose Admin Sodium Chloride 2120 ml 2,120 ml BOLUS OVER 2 HOURS STAT IV* 06/29/16 08:54 06/29/16 08:56 DC 06/29/16 09:34 Vancomycin HCl 250 ml @ 125 mls/hr ONCE STAT IVPB 06/29/16 08:54 2/23/17 10:53 06/29/16 10:23 Piperacillin Sod/ Tazobactam Sod (Zosyn 3.375gm/ 100 ml (Pmx)) 100 ml @ 200 mls/hr ONCE STAT IVPB 06/29/16 08:54 06/29/16 09:23 DC 06/29/16 09:28 Ondansetron HCl (Zofran Inj) 4 mg BRIDGE ORDER PRN IV NAUSEA AND/OR VOMITING 06/29/16 09:30 06/30/16 09:29 Acetaminophen (Tylenol Tab) 650 mg ER BRIDGE PRN PO MILD PAIN/FEVER 06/29/16 09:30 06/30/16 09:29 Procedures/MDM X-ray of the right foot shows possible osteomyelitis per radiology. Patient is a 75-year-old male with diabetes who presents with diabetic foot infection and osteomyelitis. The patient was seen by the wound care nurses who recommended inpatient admission for IV antibiotics and consultation with Dr. Gong from podiatry. The patient will be admitted to medical surgical bed. I have given vancomycin and cefepime. At this point white count and lactic acid are normal and I doubt sepsis. However I am concerned for diabetic foot infection and osteomyelitis. The patient has anemia but does not require transfusion at this time. I spoke with Dr. Chicas from the panel team for admission to a medical surgical bed as the patient was previously admitted to the panel team. Departure Diagnosis: Primary Impression: Diabetic foot infection Additional Impression: Osteomyelitis Qualified Code: M86.171 - Acute osteomyelitis of right foot Condition: BLAIRE Castaneda MD Jun 29, 2016 09:01
[2016-06-29] MEDS ORDERED: ACETAMINOPHEN 325 MG TAB PO PRN ×2 (09:30→12:00)
[2016-06-29] MEDS ORDERED: ONDANSETRON 4 MG INJ IV PRN (09:30)
[2016-06-29 09:41] LABS: ADD SCAN DIFF NO
[2016-06-29 09:44] LABS: BASOPHILS % 0.5 % (0.0-2.0); EOSINOPHILS # 0.2 10^3/ul (0.0-0.5); EOSINOPHILS % 2.8 % (0.0-7.0); HEMATOCRIT 29.3 % (42.0-52.0); HEMOGLOBIN 9.7 g/dl (14.0-18.0); LYMPHOCYTES # 1.5 10^3/ul (0.8-2.9); LYMPHOCYTES % 19.3 % (15.0-51.0); MEAN CORPUSCULAR HEMOGLOBIN 29.4 pg (29.0-33.0); MEAN CORPUSCULAR HGB CONC 33.1 g/dl (32.0-37.0); MEAN CORPUSCULAR VOLUME 88.8 fl (82.0-101.0); MEAN PLATELET VOLUME 9.1 fl (7.4-10.4); MONOCYTE # 0.5 10^3/ul (0.3-0.9); MONOCYTES % 6.1 % (0.0-11.0); NEUTROPHIL # 5.4 10^3/ul (1.6-7.5); PLATELET COUNT 229 10^3/UL (140-415); RED CELL DISTRIBUTION WIDTH 13.5 % (11.5-14.5); WHITE BLOOD COUNT 7.6 10^3/ul (4.8-10.8)
--- NOTE | 2016-06-29 09:52 | RADRPT ---
PROCEDURE: XR Foot. CLINICAL INDICATION: Right foot pain, diabetic ulcer TECHNIQUE: 3 views of the right foot are available for review. COMPARISON: Radiographs of the right foot dated May 25, 2016 FINDINGS: There is amputation of the fifth metatarsal sparing some of the base as well as the fifth digit. Th ere is forefoot soft tissue swelling and gas. There are vascular calcifications. There is no definite acute fracture. Questionable erosive changes at the fourth metatarsal head and base of the fourth proximal phalanx are noted. IMPRESSION: 1. Forefoot soft tissue swelling and small foci of soft tissue gas. 2. Questionable erosive changes erosive changes of the fourth metatarsal head and base of the fourth proximal phalanx, not definitive but could represent osteomyelitis and MRI should be considered for more sensitive evaluation as clinically indicated. 3. Amputation of the fifth digit and majority of the fifth metatarsal. RPTAT: UU .Wilner Verma MD, MD Date Time Electronically viewed and signed by .Wilner Verma MD, on 06/29/2016 09:52 .K/
[2016-06-29 09:56] LABS: INR 1.08; PT RATIO 1.1
[2016-06-29 09:57] LABS: CHLORIDE 104 mmol/L (97-110); PARTIAL THROMBOPLASTIN TIME 37.4 Sec (25.0-35.0); POTASSIUM 4.6 mmol/L (3.5-5.1); SODIUM 141 mmol/L (135-144)
[2016-06-29 09:59] LABS: ALBUMIN/GLOBULIN RATIO 1.21; ALKALINE PHOSPHATASE 79 IU/L (42-121); ANION GAP 19 (8-16); ASPARTATE AMINO TRANSFERASE 18 IU/L (15-46); BILIRUBIN,INDIRECT 0.2 mg/dl (0-1.1); BILIRUBIN,TOTAL 0.2 mg/dl (0.2-1.3); CARBON DIOXIDE 23 mmol/L (21-31); CREATININE 1.02 mg/dl (0.61-1.24); TOTAL PROTEIN 7.3 g/dl (6.1-8.1)
[2016-06-29 10:00] LABS: ALANINE AMINOTRANSFERASE 16 IU/L (13-69); BLOOD UREA NITROGEN 25 mg/dl (7-20); GLUCOSE 203 mg/dl (70-220)
[2016-06-29 10:15] LABS: TROPONIN-I < 0.010 ng/ml (0.00-0.12)
[2016-06-29] MEDS ORDERED: NACL 0.9% 3 ML SYG IV SCH (12:00)
[2016-06-29] MEDS ORDERED: METOCLOPRAMIDE 5 MG TAB PO SCH (12:00)
[2016-06-29] MEDS ORDERED: DOCUSATE SODIUM 100 MG CAP PO PRN (12:00)
[2016-06-29] MEDS ORDERED: HYDROCODONE/APAP (5/325) TAB PO PRN ×2 (12:00)
[2016-06-29] MEDS ORDERED: ONDANSETRON 4 MG TAB PO PRN (12:00)
[2016-06-29] MEDS ORDERED: ACETAMINOPHEN 650 MG SUPP PR PRN (12:00)
[2016-06-29] MEDS ORDERED: GLUCOSE GEL 15 GRAM TUBE PO PRN ×2 (12:30)
[2016-06-29] MEDS ORDERED: GLUCAGON 1 MG INJ IM PRN (12:30)
[2016-06-29] MEDS ORDERED: DEXTROSE 50% 50 ML SYRINGE IV PRN ×2 (12:30)
[2016-06-29] MEDS ORDERED: GLUCOSE GEL 15 GRAM TUBE BUCCAL PRN (12:30)
[2016-06-29] MEDS: METOCLOPRAMIDE 5 MG TAB PO SCH ×2 (12:43→21:27)
[2016-06-29] MEDS: INSULIN ASPART [NOVOLOG] 3 ML PEN SC SCH ×2 (12:44→18:53)
[2016-06-29 17:01] VITALS: TEMP 98.7
[2016-06-29] MEDS ORDERED: hydrALAzine 20 MG INJ IV PRN (17:30)
[2016-06-29] MEDS ORDERED: hydrALAzine 20 MG INJ IV ONE (17:30)
--- NOTE | 2016-06-29 17:58 | HP ---
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 He presented [facility] secondary to worsening of the diabetic ulcer on the sole of right ian t. Patient states that he recently completed antibiotic course that was prescribed but he was being seen and evaluated by home health daily and received ongoing wound care and dressing changes trang wesley. The patient stated that the reason for his visit is the concern of his home health nurse. e nurse believed that his wound is not getting better and concerned about fever and chills which he experienced at home. He denies having any pain or any other discomfort. No fever, chills, weight g ain, weight loss, anorexia. No chest pain, palpitations, edema, orthopnea. No change in visual acu ity, diplopia, photophobia or any other discomfort. PAST MEDICAL AND SURGICAL HISTORY 1. Diabetes mellitus. 2. Right foot ulcer. 3. Diabetic ulcer. 4. Diabetes mellitus. 5. Diabetic neuropathy. 6. Right foot third and fourth toe amputation. 7. Dyslipidemia. 8. History of peripheral vascular disease. MEDICATIONS: 1. Amlodipine. 2. Augmentin. 3. Aspirin. 4. Lipitor. 5. Benazepril. 5. Chlorthalidone. 6. Cipro. 7. Bentyl. 7. Glipizide. 8. Ibuprofen. 9. NovoLog insulin. 10. Lantus. 11. Reglan. 12. Bactrim. ALLERGIES: NO KNOWN DRUG ALLERGIES. FAMILY HISTORY: Positive for hypertension, diabetes mellitus. SOCIAL HISTORY: Negative x3 for smoking, alcohol, illicit drugs. REVIEW OF SYSTEMS: As above per HPI, otherwise 12 review of systems has been found to be negative. PHYSICAL EXAMINATION: VITAL SIGNS: Temperature 98.2, pulse 74, respiration 18, blood pressure 174/88, oxygen 99% in room air. GENERAL APPEARANCE: The patient is lying in bed comfortably without any distress. He is awake, shelbi rt, oriented. He is able to answer my questions properly. EYES AND ENT: Conjunctivae and lids are normal. Pupils are normal. Extraocular normal. Hearing g rossly normal. Lips, teeth and gums are normal. Oral mucosa is moist. NECK: Supple. Trachea is midline. No lymphadenopathy. RESPIRATORY: Effort is normal. Clear to auscultate bilaterally. CARDIOVASCULAR: Normal S1, S2. Regular rhythm and rate. No murmur, no bruits, no edema. Peripher al pulses and radial pulses palpable. Capillary refill is normal. CHEST: Normal expansion of thorax during inspiration. GASTROINTESTINAL: Abdomen is soft, nontender, not distended. Bowel sounds present. No guarding, n o rebound. GENITOURINARY: Deferred. MUSCULOSKELETAL: Upper extremity within normal limits. Left lower extremity with stasis dermatitis . Right lower extremity: The patient is status post amputation of the fourth and fifth toe. There is an ulcer at the sole of the foot on the ____ aspect. NEUROLOGIC: Cranial nerves II through XII seem grossly intact. PSYCHIATRIC: Normal judgment and insight. Alert and oriented x3. Mood and affect is normal. LABORATORY WORK AND IMAGING: WBC is within normal limits at 7.6, hemoglobin 9.7, hematocrit 29.3, p latelets 229. Sodium 141, potassium 4.3, chloride 104, bicarbonate 23, BUN 25, creatinine 1.02, glu cose 203. Lactic acid normal. LFTs all within normal limits. ASSESSMENT AND PLAN: 1. Diabetic foot ulcer. Podiatry has been consulted. Patient has been placed on Rocephin and will follow up podiatry recommendation. 2. Diabetes mellitus, mildly uncontrolled. Follow hemoglobin A1c. Continue his Lantus insulin sli ding scale, low carbohydrate diet and premeal insulin. 3. History of dyslipidemia. Follow up lipid panel. Continue Lipitor. 4. Essential hypertension, moderately uncontrolled. Continue Lotensin, Norvasc. Place the patien t on p.r.n. hydralazine. 5. Peripheral vascular disease. Continue aspirin and statin. 6. Deep venous thrombosis prophylaxis, on Lovenox. 7. We will continue to monitor patient closely. Further recommendations, management and treatment as per clinical course. Total amount of time spent for evaluation of patient and admission workup 40 minutes. Dictated By: CASSI GUERRERO MD PN/NTS Conf#: [id number] DID#: [id number]
[2016-06-29 18:36] VITALS: BP 150/76; PULSE 90; RESP 18
[2016-06-29 18:37] VITALS: Ht 162.6 cm; Wt 60.2 kg
[2016-06-29 20:05] VITALS: BP 168/79; RESP 19
[2016-06-29] MEDS: INSULIN GLARGINE [LANtus] 3 ML PEN SC SCH (21:00)
[2016-06-29] MEDS: ATORVASTATIN 40 MG TAB PO SCH (21:27)
[2016-06-29 22:00] VITALS: BP 145/78; PULSE 78; RESP 20
[2016-06-30] MEDS: METOCLOPRAMIDE 5 MG TAB PO SCH ×3 (06:04→21:09)
[2016-06-30 08:20] LABS: ADD SCAN DIFF NO
[2016-06-30 08:23] LABS: BASOPHILS % 0.4 % (0.0-2.0); EOSINOPHILS # 0.2 10^3/ul (0.0-0.5); HEMATOCRIT 29.9 % (42.0-52.0); HEMOGLOBIN 9.6 g/dl (14.0-18.0); MEAN CORPUSCULAR HEMOGLOBIN 28.5 pg (29.0-33.0); MEAN CORPUSCULAR HGB CONC 32.1 g/dl (32.0-37.0); MEAN CORPUSCULAR VOLUME 88.7 fl (82.0-101.0); MEAN PLATELET VOLUME 8.7 fl (7.4-10.4); MONOCYTE # 0.3 10^3/ul (0.3-0.9); MONOCYTES % 5.8 % (0.0-11.0); NEUTROPHIL # 3.7 10^3/ul (1.6-7.5); NEUTROPHILS % 70.4 % (39.0-77.0); PLATELET COUNT 210 10^3/UL (140-415); RED BLOOD COUNT 3.37 10^6/ul (4.70-6.10); RED CELL DISTRIBUTION WIDTH 13.4 % (11.5-14.5); WHITE BLOOD COUNT 5.3 10^3/ul (4.8-10.8)
[2016-06-30 08:24] VITALS: BP 161/66; RESP 18
[2016-06-30 08:47] LABS: POTASSIUM 4.2 mmol/L (3.5-5.1)
[2016-06-30 08:49] LABS: CREATININE 0.91 mg/dl (0.61-1.24)
[2016-06-30 08:50] LABS: CALCIUM 8.9 mg/dl (8.4-10.2); CHOL/HDL RATIO 3.5 RATIO; MAGNESIUM 1.9 mg/dl (1.7-2.5)
[2016-06-30] MEDS: INSULIN ASPART [NOVOLOG] 3 ML PEN SC SCH ×3 (09:23→17:53)
[2016-06-30] MEDS: ENOXAPARIN 40 MG/0.4 ML SYG SC SCH (09:24)
[2016-06-30] MEDS: BENAZEPRIL 40 MG TAB PO SCH (09:25)
[2016-06-30] MEDS: ASPIRIN 81 MG TAB PO SCH (09:25)
[2016-06-30] MEDS: CHLORTHALIDONE 25 MG TAB PO SCH (09:25)
[2016-06-30] MEDS: AMLODIPINE 10 MG TAB PO SCH (09:25)
[2016-06-30 09:45] VITALS: BP 138/77; PULSE 78; RESP 20
[2016-06-30] MEDS: COLLAGENASE 30 GM TUBE TOP SCH (11:09)
--- NOTE | 2016-06-30 16:32 | PN ---
Date/Time of Note Date/Time of Note DATE: 06/30/16 TIME: 16:25 Assessment/Plan VTE Prophylaxis VTE Prophylaxis Intervention: LMWH Lines/Catheters IV [facility]from [facility] Saline Lock Assessment/Plan Assessment/Plan 1. Diabetic foot ulcer. 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 Diabetes mellitus, mildly uncontrolled. Follow hemoglobin A1c. Continue his Lantus insulin sliding scale, low carbohydrate diet and premeal insulin. 3. History of dyslipidemia. Follow up lipid panel. Continue Lipitor. 4. Essential hypertension, moderately uncontrolled. Continue Lotensin, Norvasc. Place the patient on p.r.n. hydralazine. 5. Peripheral vascular disease. Continue aspirin and statin. 6. Deep venous thrombosis prophylaxis, on Lovenox. 7. We will continue to monitor patient closely. Further recommendations, management and treatment as per clinical course. Subjective 24 Hr Interval Summary Free Text/Dictation afebrile Exam/Review of Systems Vital Signs Vitals Vital Signs Date Time Temp Pulse Resp B/P Pulse Ox O2 Delivery O2 Flow Rate FiO2 06/30/16 09:45 98.0 78 20 138/77 98 Room Air Intake and Output 06/29/16 06/29/16 06/30/16 15:00 23:00 07:00 Intake Total 2470 ml 360 ml Output Total 600 ml Balance 2470 ml -240 ml Exam Constitutional: alert, oriented, well developed Psych: nl mood/affect, no complaints Head: atraumatic, normocephalic Eyes: EOMI, PERRL, nl conjunctiva, nl lids ENMT: nl external ears & nose, nl lips & teeth, nl nasal mucosa & septum Neck: non-tender, supple Respiratory: clear to auscultation, normal air movement, No congested cough, No crackles/rales, No diminished breath sounds, No intercostal retraction, No labored breathing, No other, No respirations, No tactile fremitus, No wheezing Cardiovascular: nl pulses, regular rate and rhythm, No S3, No S4, No bruits, No diastolic murmur, No edema, No gallop, No irregular rhythm, No jugular venous distention (JVD), No murmurs/extra sounds, No other, No rub, No systolic murmur Gastrointestinal: nl liver, spleen, non-tender, soft, No ascites, No bowel sounds, No distended, No firm, No hepatomegaly, No mass , No other, No rebound or guarding, No splenomegaly, No surgical scars, No tender Extremities: other (right foot wound) Neurological: HAND GLASS CUTTER II-XII intact, nl mental status, nl speech, nl strength Results Result Diagram: 06/30/16 0815 06/30/16 0815 Results 24 hrs Laboratory Tests Test 06/29/16 18:39 06/29/16 21:17 06/30/16 07:52 06/30/16 08:15 Bedside Glucose 126 74 179 Anion Gap 13 Basophils # 0.0 Basophils % 0.4 Blood Urea Nitrogen 19 Calcium Level 8.9 Carbon Dioxide Level 28 Chloride Level 104 Cholesterol Level 139 Cholesterol/HDL Ratio 3.5 Creatinine 0.91 Eosinophils # 0.2 Eosinophils % 4.0 Glucose Level 165 HDL Cholesterol 39 Hematocrit 29.9 L Hemoglobin 9.6 L LDL Cholesterol, Calculated 80 Lymphocytes # 1.0 Lymphocytes % 19.0 Magnesium Level 1.9 Mean Corpuscular Hemoglobin 28.5 L Mean Corpuscular Hemoglobin Concent 32.1 Mean Corpuscular Volume 88.7 Mean Platelet Volume 8.7 Monocytes # 0.3 Monocytes % 5.8 Neutrophils # 3.7 Neutrophils % 70.4 Nucleated Red Blood Cells # 0.0 Nucleated Red Blood Cells % 0.0 Platelet Count 210 Potassium Level 4.2 Red Blood Count 3.37 L Red Cell Distribution Width 13.4 Sodium Level 141 Triglycerides Level 102 White Blood Count 5.3 # Test 06/30/16 12:25 Bedside Glucose 119 Medications Medications Current Medications Amlodipine Besylate (Norvasc) 10 mg DAILY PO Last administered on 06/30/16 09: 25; Admin Dose 10 MG; Start 06/30/16 at 09:00 Aspirin (Aspirin) 81 mg DAILY PO Last administered on 06/30/16 09:25; Admin Dose 81 MG; Start 06/30/16 at 09:00 Atorvastatin Calcium (Lipitor) 40 mg QHS PO Last administered on 06/29/16 21: 27; Admin Dose 40 MG; Start 06/29/16 at 21:00 Benazepril HCl (Lotensin) 40 mg DAILY PO Last administered on 06/30/16 09:25; Admin Dose 40 MG; Start 06/30/16 at 09:00 Chlorthalidone (Hygroton) 25 mg DAILY PO Last administered on 06/30/16 09:25; Admin Dose 25 MG; Start 06/30/16 at 09:00 Collagenase (Santyl) 1 applic DAILY TOP Last administered on 06/30/16 11:09; Admin Dose 1 APPLIC; Start 06/30/16 at 09:00 Insulin Glargine (Lantus) 15 unit HS SC ; Start 06/29/16 at 21:00 Ondansetron HCl (Zofran Tab) 4 mg Q6H PRN PO NAUSEA AND/OR VOMITING; Start at 12:00 Acetaminophen (Tylenol Tab) 650 mg Q6H PRN PO PAIN LEVEL 1-3 OR FEVER; Start at 12:00 Acetaminophen (Tylenol Supp) 650 mg Q6H PRN ND PAIN LEVEL 1-3 OR FEVER; Start 06/29/16 at 12:00 Acetaminophen/ Hydrocodone Bitart ([place] (5/325)) 1 tab Q6H PRN PO MODERATE PAIN LEVEL 4-6; Start 06/29/16 at 12:00 Acetaminophen/ Hydrocodone Bitart ([place] (5/325)) 2 tab Q6H PRN PO SEVERE PAIN LEVEL 7-10; Start 06/29/16 at 12:00 Docusate Sodium (Colace) 100 mg Q12H PRN PO CONSTIPATION; Start 06/29/16 at 12: 00 Enoxaparin Sodium (Lovenox) 40 mg DAILY SC Last administered on 06/30/16 09:24 ; Admin Dose 40 MG; Start 06/30/16 at 09:00 Metoclopramide HCl (Reglan) 5 mg Q8 PO Last administered on 06/30/16 14:08; Admin Dose 5 MG; Start 06/29/16 at 12:00 Miscellaneous Information 1 ea NOTE XX ; Start 06/29/16 at 12:30 Glucose (Glutose) 15 gm Q15M PRN PO DECREASED GLUCOSE; Start 06/29/16 at 12:30 Glucose (Glutose) 22.5 gm Q15M PRN PO DECREASED GLUCOSE; Start 06/29/16 at 12: 30 Dextrose (D50w Syringe) 25 ml Q15M PRN IV DECREASED GLUCOSE; Start 2/23/17 at 12:30 Dextrose (D50w Syringe) 50 ml Q15M PRN IV DECREASED GLUCOSE; Start 06/29/16 at 12:30 Glucagon (Glucagen) 1 mg Q15M PRN IM DECREASED GLUCOSE; Start 06/29/16 at 12:30 Glucose (Glutose) 15 gm Q15M PRN BUCCAL DECREASED GLUCOSE; Start 06/29/16 at 12 :30 Hydralazine HCl (Apresoline) 10 mg Q6H PRN IV ELEVATED BLOOD PRESSURE; Start at 17:30 NURY WARE MD Jun 30, 2016 16:32
[2016-06-30 20:22] VITALS: BP 114/58; RESP 19
[2016-06-30] MEDS: ATORVASTATIN 40 MG TAB PO SCH (20:34)
[2016-06-30] MEDS: INSULIN GLARGINE [LANtus] 3 ML PEN SC SCH (20:36)
[2016-07-01] MEDS: METOCLOPRAMIDE 5 MG TAB PO SCH ×3 (06:20→21:34)
[2016-07-01 08:11] VITALS: BP 157/79; RESP 18
[2016-07-01] MEDS: ASPIRIN 81 MG TAB PO SCH (08:24)
[2016-07-01] MEDS: AMLODIPINE 10 MG TAB PO SCH (08:27)
[2016-07-01] MEDS: BENAZEPRIL 40 MG TAB PO SCH (08:27)
[2016-07-01] MEDS: CHLORTHALIDONE 25 MG TAB PO SCH (08:27)
[2016-07-01] MEDS: COLLAGENASE 30 GM TUBE TOP SCH (08:27)
[2016-07-01] MEDS: INSULIN ASPART [NOVOLOG] 3 ML PEN SC SCH ×3 (08:29→17:28)
[2016-07-01] MEDS: ENOXAPARIN 40 MG/0.4 ML SYG SC SCH (08:29)
--- NOTE | 2016-07-01 10:06 | PN ---
Date/Time of Note Date/Time of Note DATE: 07/01/16 TIME: 10:01 Assessment/Plan VTE Prophylaxis VTE Prophylaxis Intervention: LMWH Lines/Catheters [facility] Saline Lock Urinary Cath still in place: No Assessment/Plan Problems: (1) Hyperlipidemia Status: Chronic Comment: Patient is on statin therapy will continue. Qualifiers: Hyperlipidemia type: pure hypercholesterolemia Qualified Code: E78.00 - Pure hypercholesterolemia (2) Essential hypertension Status: Chronic Comment: Patient's on several drugs including full dose ARB medication. Continue treatment adequately controlled (3) Onychomycosis due to dermatophyte Status: Chronic Comment: Pulse therapy with Lamisil (4) Diabetic foot infection Status: Acute Comment: Dr. Peace of podiatry has been consulted to see the patient will go ahead and get the MRI scan of the foot although I am fairly certain we know what this is-osteomyelitis (5) Diabetes, polyneuropathy Status: Chronic Comment: Noted. He has had adequate glucose control Qualifiers: Diabetes mellitus type: type 2 Qualified Code: E11.42 - Diabetic polyneuropathy associated with type 2 diabetes mellitus (6) Peripheral vascular disease Status: Chronic Comment: Noted. Subjective 24 Hr Interval Summary Free Text/Dictation Charming older gentleman lying in bed with his right foot bandaged Constitutional: no complaints (Denies fever chills or sweats) Respiratory: no complaints (Denies shortness of breath or wheezing) Cardiovascular: no complaints (Denies chest pain or palpitation) Gastrointestinal: no complaints (Denies nausea or) Exam/Review of Systems Vital Signs Vitals Vital Signs Date Time Temp Pulse Resp B/P Pulse Ox O2 Delivery O2 Flow Rate FiO2 07/01/16 08:11 98.4 76 18 157/79 94 06/30/16 09:45 Room Air Intake and Output 06/30/16 06/30/16 07/01/16 15:00 23:00 07:00 Intake Total 1160 ml 300 ml Output Total 850 ml Balance 1160 ml -550 ml Exam Constitutional: alert, oriented Neck: non-tender, supple Respiratory: clear to auscultation, normal air movement Cardiovascular: nl pulses, regular rate and rhythm Gastrointestinal: nl liver, spleen, non-tender, soft Extremities: other (Right foot bandaged. There is purulent discharge weeping through the bandage on the plantar aspect of the foot underneath the fourth and fifth toes. He also has significant onychomycosis) Results Result Diagram: 06/30/16 0815 06/30/16 0815 Results 24 hrs Laboratory Tests Test 06/30/16 12:25 06/30/16 17:52 06/30/16 20:35 07/01/16 07:38 Bedside Glucose 119 148 118 134 Medications Medications Current Medications Amlodipine Besylate (Norvasc) 10 mg DAILY PO Last administered on 07/01/16 08: 27; Admin Dose 10 MG; Start 06/30/16 at 09:00 Aspirin (Aspirin) 81 mg DAILY PO Last administered on 07/01/16 08:24; Admin Dose 81 MG; Start 06/30/16 at 09:00 Atorvastatin Calcium (Lipitor) 40 mg QHS PO Last administered on 06/30/16 20: 34; Admin Dose 40 MG; Start 06/29/16 at 21:00 Benazepril HCl (Lotensin) 40 mg DAILY PO Last administered on 07/01/16 08:27; Admin Dose 40 MG; Start 06/30/16 at 09:00 Chlorthalidone (Hygroton) 25 mg DAILY PO Last administered on 07/01/16 08:27; Admin Dose 25 MG; Start 06/30/16 at 09:00 Collagenase (Santyl) 1 applic DAILY TOP Last administered on 07/01/16 08:27; Admin Dose 1 APPLIC; Start 06/30/16 at 09:00 Insulin Glargine (Lantus) 15 unit HS SC ; Start 06/29/16 at 21:00 Ondansetron HCl (Zofran Tab) 4 mg Q6H PRN PO NAUSEA AND/OR VOMITING; Start at 12:00 Acetaminophen (Tylenol Tab) 650 mg Q6H PRN PO PAIN LEVEL 1-3 OR FEVER; Start at 12:00 Acetaminophen (Tylenol Supp) 650 mg Q6H PRN OR PAIN LEVEL 1-3 OR FEVER; Start 06/29/16 at 12:00 Acetaminophen/ Hydrocodone Bitart ([place] (5/325)) 1 tab Q6H PRN PO MODERATE PAIN LEVEL 4-6; Start 06/29/16 at 12:00 Acetaminophen/ Hydrocodone Bitart (Pax (5/325)) 2 tab Q6H PRN PO SEVERE PAIN LEVEL 7-10; Start 06/29/16 at 12:00 Docusate Sodium (Colace) 100 mg Q12H PRN PO CONSTIPATION; Start 06/29/16 at 12: 00 Enoxaparin Sodium (Lovenox) 40 mg DAILY SC Last administered on 07/01/16 08:29 ; Admin Dose 40 MG; Start 06/30/16 at 09:00 Metoclopramide HCl (Reglan) 5 mg Q8 PO Last administered on 07/01/16 06:20; Admin Dose 5 MG; Start 06/29/16 at 12:00 Miscellaneous Information 1 ea NOTE XX ; Start 06/29/16 at 12:30 Glucose (Glutose) 15 gm Q15M PRN PO DECREASED GLUCOSE; Start 06/29/16 at 12:30 Glucose (Glutose) 22.5 gm Q15M PRN PO DECREASED GLUCOSE; Start 06/29/16 at 12: 30 Dextrose (D50w Syringe) 25 ml Q15M PRN IV DECREASED GLUCOSE; Start 06/29/16 at 12:30 Dextrose (D50w Syringe) 50 ml Q15M PRN IV DECREASED GLUCOSE; Start 06/29/16 at 12:30 Glucagon (Glucagen) 1 mg Q15M PRN IM DECREASED GLUCOSE; Start 06/29/16 at 12:30 Glucose (Glutose) 15 gm Q15M PRN BUCCAL DECREASED GLUCOSE; Start 06/29/16 at 12 :30 Hydralazine HCl (Apresoline) 10 mg Q6H PRN IV ELEVATED BLOOD PRESSURE; Start at 17:30 MELYSSA QUINONES MD Jul 01, 2016 10:06
[2016-07-01] MEDS: TERBINAFINE 250 MG TAB PO SCH ×2 (11:36→20:44)
[2016-07-01] MEDS ORDERED: VANCOMYCIN IV PER PHARMACY XX SCH (14:00)
--- NOTE | 2016-07-01 14:31 | CONS ---
DATE OF ADMISSION: 06/29/2016 DATE OF CONSULTATION: 07/01/2016 REASON FOR CONSULTATION: Right foot infection. HISTORY OF PRESENT ILLNESS: This is a 75-year-old gentleman who has had chronic nonhealing diabetic ulcerations. He has had a partial fifth ray amputation performed approximately 10 years ago. Recently he has had a wound on the third interspace which has been undergoing wound care, which was noted to be deteriorating with presence of purulence and cellulitis. Advised by his home health nurse to present to the emergency room where he did and was admitted. He was initiated on Santyl and placed on Rocephin antibiotics. The patient has had radiographs which are suspect for osteomyelitis. The fourth toe has had MRI which is scheduled, results pending. The patient denies any pain, fever, chills. The patient had fever, chills at home. The patient had been oral antibiotics at home per report, Bactrim. PAST MEDICAL HISTORY: 1. Diabetes type 2 with peripheral neuropathy. 2. History of partial fifth ray amputation, right foot. 3. Hyperlipidemia. 4. Venous stasis. MEDICATIONS: Include: 1. Norvasc 10 mg p.o. daily. 2. Aspirin 81 mg daily. 3. Lotensin 40 mg p.o. daily. 4. Hydralazine 10 mg q.6h. 5 Lantus 15 units subcutaneous at bedtime. 6. Lovenox 40 mg subcutaneous daily. 7. Santyl. ALLERGIES: NO KNOWN DRUG ALLERGIES. FAMILY HISTORY: Hypertension, diabetes. SOCIAL HISTORY: Denies any smoking, alcohol, illicit drug use. REVIEW OF SYSTEMS: Right foot swelling, deformity. PHYSICAL EXAMINATION: VITAL SIGNS: Temperature 98.4, pulse 76, respiratory rate 18, blood pressure 157/79. Pulse oximetry is 94%. GENERAL: The patient alert and oriented, no acute distress. HEAD: Normocephalic, atraumatic. NECK: Trachea is midline. PULMONARY: Regular respirations. EXTREMITIES: The patient with clean dressings, they were removed. The patient has moderate edema of forefoot, chronic onychomycosis, has fifth ray amputation. Ulceration present at the third interspace and appears to be connecting to the plantar ulceration. Plantar lateral fourth metatarsophalangeal joint, there is a hematoma formation of approximately 1 cm. The fifth toe looks like a sausage toe. Skin is dry, chronic venous stasis with hyperpigmentation. The patient has 2+ DP and popliteal pulses on the right lower extremity. The patient has absent protective sensation. LABORATORY/DIAGNOSTIC DATA: WBC 5.3, hemoglobin 9.6, hematocrit 29.9, platelets 210. Glucose is 160. Foot x-ray: Swelling with foci of small soft tissue gas, questionable erosive changes of fourth metatarsal head and base of proximal phalanx. Amputation of fifth toe and metatarsal. Blood cultures no growth. ASSESSMENT 1. Right foot infected hematoma. 2. Diabetic foot ulceration with tunneling wound. 3. Diabetes, poorly controlled. 4. Diabetes with peripheral neuropathy. 5. Venous stasis. 6. Edema. PLAN: The patient seen and evaluated. Recommend incision and drainage to be dictated in a separate note. The patient is scheduled for MRI and suspicion of underlying osteomyelitis. The fourth toe and adjacent metatarsal is at risk for further amputation. Would recommend coverage for gram-negative infection given presence of hematoma. Will initiate vancomycin and Zosyn. Consent obtained and incision and drainage performed at bedside. Further recommendations is obtaining MRI, cultures were obtained. Also nursing recommendations are given regarding open packing. Dictated By: KYLEIGH TAVAREZ DPM RB/NTS Conf#: [id number] DID#: [id number] MTDD
--- NOTE | 2016-07-01 14:39 | OPR ---
DATE OF OPERATION: 07/01/2016 SURGEON: Kyleigh Peace DPM [employer] CLERK: None. PREOPERATIVE DIAGNOSES: 1. Right foot hematoma/seroma. 2. Nonhealing diabetic foot ulceration. 3. History of partial fifth ray amputation. 4. Varus deformity of forefoot. 5. Suspected osteomyelitis. 6. Diabetes, poorly controlled. 7. Diabetes with peripheral neuropathy. POSTOPERATIVE DIAGNOSES: 1. Right foot hematoma/seroma. 2. Nonhealing diabetic foot ulceration. 3. History of partial fifth ray amputation. 4. Varus deformity of forefoot. 5. Suspected osteomyelitis. 6. Diabetes, poorly controlled. 7. Diabetes with peripheral neuropathy. PROCEDURE PERFORMED: Right foot incision and drainage below fascia, with irrigation and open packin g of ulceration. PATHOLOGY: Wound cultures. ANESTHESIA: None. HEMOSTASIS: Compression. ESTIMATED BLOOD LOSS: 10 mL. COMPLICATIONS: None. INDICATION FOR PROCEDURE: This is a 75-year-old gentleman who was admitted for infection involving the right foot. He had been initiated on IV antibiotics with poor improvement and is scheduled for MRI given presence of tissue necrosis. Recommend incision and drainage. Discussed the planned proc edure. Informed consent in [place] with the patient. At this time the wound was cleansed with saline. The patient had seroma/hematoma abscess formation at the plantar lateral fourth metatarsophalangeal joint. An incision was made and approximately 4 m L of sanguinopurulent drainage was expressed. Culture was obtained from this material. Upon furthe r inspection, this abscess formation connected to a second plantar ulceration beneath the third meta tarsophalangeal joint, as well as to the dorsal aspect of the foot through an interspace wound. At t his time the 2 plantar incisions were incised connecting the two and no tendon was exposed, but ther e was necrotic subcutaneous tissue at the level of the fourth metatarsophalangeal joint. The wounds were irrigated with saline and packed open with gauze. The patient had an estimated blood loss of 20 mL. Hemostasis was achieved with compression and it was wrapped with a gauze and Kerlix. The pa tient tolerated the procedure well. POSTOPERATIVE PLAN: Will obtain MRI. Further recommendations are pending imaging results. He is at risk for further amputation. Plan of care was discussed with nursing. Recommend daily cleansing a nd open packing with NuGauze packing strips. The patient was initiated on vancomycin and Zosyn. Dictated By: KYLEIGH DAILY/AYDEN Conf#: [id number] DID#: [id number]
[2016-07-01] MEDS: PIPER-TAZO 3.375 GM IV (PMX) 100 ML IVPB SCH ×2 (15:23→21:26)
--- NOTE | 2016-07-01 15:45 | CONS ---
DATE OF ADMISSION: 06/29/2016 DATE OF CONSULTATION: 07/01/2016 TYPE OF CONSULTATION: Infectious Disease. REASON FOR CONSULTATION: Antibiotic management. HISTORY OF PRESENT ILLNESS: Austen Robison is a 75-year-old male followed by Dr. Peace of podiatry and the patient's problems include: 1. Adult-onset diabetes mellitus. 2. Dyslipidemia. 3. Essential hypertension. 4. Peripheral vascular disease. 5. Right foot chronic ulcer, status post amputation of the third and fourth toes of the right foot. He presented to [facility] with worsening diabetic ulcer on the sole of his right foot. He recently completed an antibiotic course that was prescribed and received ongoing wound care. The patient stated that the reason for his visit was concern of his home health nurse. The wound was n ot getting any better and he had fever and chills which he experienced at home, but no fever, curren tly on admission. His problems include diabetes mellitus, right foot ulcer, diabetic ulcer, diabeti c neuropathy, right foot third and fourth toe amputation, dyslipidemia and peripheral vascular disea se. PAST MEDICAL HISTORY: Operations as outlined. FAMILY HISTORY: Positive for hypertension, diabetes. ALLERGIES: NONE TO PENICILLIN, SULFA OR FOODS. MEDICATIONS: Per chart. REVIEW OF SYSTEMS: As per HPI. PHYSICAL EXAMINATION: GENERAL: The patient is a well-developed, well-nourished male who is alert, responsive, in no acute distress. VITAL SIGNS: Stable. He is afebrile. SKIN: Without generalized rash. HEENT: Within normal limits. NECK: Supple. LYMPH NODES: None palpable. CHEST: Decreased breath sounds at the bases. HEART: Without murmur or gallop. ABDOMEN: Soft, nontender, without organosplenomegaly or masses. EXTREMITIES: Without cyanosis, clubbing, or edema. Left lower extremity has stasis dermatitis. Th e right lower extremity, status post amputation of the 4th and 5th toes. There is an ulcer at the s ole of the foot as previously outlined, of the right foot. RECTAL AND GENITAL: Deferred. NEUROLOGIC: No focal neurological abnormalities. HOSPITAL COURSE: The patient's white count was 7.6 on admission, hemoglobin 9.7 and hematocrit 29. 3, platelet count 229, BUN and creatinine 25/1.02. The patient was started on Rocephin. He was see n by Dr. Peace for the chronic nonhealing diabetic ulcer with partial fifth ray amputation perform ed 10 years ago. Recently, a wound on the 3rd interspace which was undergoing wound care. The sean ent has had radiographs which was suspect for osteomyelitis of the fourth toe and has had an MRI whi ch is scheduled. IMPRESSION AND PLAN: The patient has been on oral Bactrim at home. An MRI scan is pending. X-ray just shows questionable erosive changes of the fourth metatarsal head, not definitive but could repr esent osteomyelitis, and MRI should be considered. Patient was begun on vancomycin and Zosyn and co nsent obtained for incision and drainage to be performed at the bedside. I concur with this current regimen. The patient was also seen by Dr. Johnson for his numerous problems, including hyperlipidemi a. The patient has onychomycosis, given Lamisil; diabetic neuropathy. We will continue him on his current therapy. I will dictate my findings to the hospitalist as well as to Dr. Peace and Dr. Polly garcia. Dictated By: DENISE WEST MD, JD/AYDEN Conf#: [id number] DID#: [id number]
[2016-07-01] MEDS ORDERED: VANCOMYCIN 1.25 GM in SOD CHLORIDE 0.9% 250 ML IVPB ONE (16:00)
--- NOTE | 2016-07-01 17:03 | RADRPT ---
PROCEDURE: MRI OF THE RIGHT FOOT. CLINICAL INDICATION: Right foot pain and swelling TECHNIQUE: Multiple MRI sequences of the right foot were obtained using a high field scanner. Lucy ges were interpreted on the high-resolution PACS system.. COMPARISON: MRI of the right foot from 07/25/2015 and plain films from 06/29/2016 FINDINGS: Amputation of the fifth digit is seen. Signal alteration is seen in the fifth proximal phalanx with hypointense T1 signal and hyperintense T2 signal. No other definite marrow signal abnormalities ar e seen. Soft tissue swelling is seen involving the soft tissues of the fourth digit. No discrete f luid collection is seen. In addition, dorsal soft tissue swelling is also seen. No acute fracture o r dislocation is seen. IMPRESSION: 1. MRI findings suggestive of osteomyelitis of the fourth proximal phalanx. 2. Amputation of the fifth digit. RPTAT: HPNM Physician Alexey Date Time Electronically viewed and signed by Physician Alexey on 07/01/2016 17:03 /
[2016-07-01] MEDS: ATORVASTATIN 40 MG TAB PO SCH (20:44)
[2016-07-01] MEDS: INSULIN GLARGINE [LANtus] 3 ML PEN SC SCH (20:48)
[2016-07-02] MEDS: VANCOMYCIN 500MG/NS (PMX) 100 ML IVPB SCH ×2 (04:30→16:19)
[2016-07-02] MEDS: METOCLOPRAMIDE 5 MG TAB PO SCH ×3 (06:09→21:09)
[2016-07-02] MEDS: PIPER-TAZO 3.375 GM IV (PMX) 100 ML IVPB SCH ×2 (06:09→14:00)
[2016-07-02 06:33] LABS: CREATININE 1.06 mg/dl (0.61-1.24)
[2016-07-02 08:30] VITALS: BP 120/58; RESP 18
[2016-07-02] MEDS: TERBINAFINE 250 MG TAB PO SCH ×2 (09:00→21:09)
--- NOTE | 2016-07-02 10:02 | PN ---
Date/Time of Note Date/Time of Note DATE: 07/02/16 TIME: 09:59 Assessment/Plan VTE Prophylaxis VTE Prophylaxis Intervention: heparin Lines/Catheters IV Catheter Type (from [facility]): Saline Lock Urinary Cath still in place: No Assessment/Plan Problems: (1) Hyperlipidemia Status: Chronic Comment: On statin therapy and stable; tolerating medication Qualifiers: Hyperlipidemia type: pure hypercholesterolemia Qualified Code: E78.00 - Pure hypercholesterolemia (2) Essential hypertension Status: Chronic Comment: Adequate control under current circumstances adjust medicines to use more EDIS inhibitor less dihydropyridine calcium channel audi (3) Onychomycosis due to dermatophyte Status: Chronic Comment: On pulse therapy (4) Osteomyelitis Status: Acute Comment: He has been seen by infectious disease and also by podiatry. Is going need a surgical cleanup of this and may need removal of the infected phalanx to preserve the rest of the foot Qualifiers: Osteomyelitis location: foot Laterality: right Chronicity: acute Qualified Code: M86.171 - Acute osteomyelitis of right foot (5) Diabetes, polyneuropathy Status: Chronic Comment: Noted and stable sugar control is excellent Qualifiers: Diabetes mellitus type: type 2 Qualified Code: E11.42 - Diabetic polyneuropathy associated with type 2 diabetes mellitus (6) Diabetic foot Status: Acute Comment: As per podiatry Subjective 24 Hr Interval Summary Free Text/Dictation Patient lying in bed reports he still has pain from the foot. Constitutional: no complaints (Denies fevers chills or sweats) Respiratory: no complaints Cardiovascular: no complaints Gastrointestinal: no complaints Genitourinary: no complaints Musculoskeletal: other (Pain foot right fourth toe) Endocrine: no complaints Exam/Review of Systems Vital Signs Vitals Vital Signs Date Time Temp Pulse Resp B/P Pulse Ox O2 Delivery O2 Flow Rate FiO2 07/01/16 08:11 98.4 76 18 157/79 94 06/30/16 09:45 Room Air Intake and Output 07/01/16 07/01/16 07/02/16 15:00 23:00 07:00 Intake Total 1610.003 ml 350 ml Output Total 1460 ml Balance 1610.003 ml -1110 ml Exam Constitutional: alert, oriented Neck: non-tender, supple Respiratory: clear to auscultation, normal air movement Cardiovascular: nl pulses, regular rate and rhythm Gastrointestinal: nl liver, spleen, non-tender, soft Extremities: other (Please see dictation of podiatry. He will need incision and drainage and possibly need removal of the proximal phalanx) Results Result Diagram: 06/30/16 0815 07/02/16 0530 Results 24 hrs Laboratory Tests Test 07/01/16 11:42 07/01/16 17:06 07/01/16 20:43 07/02/16 02:51 Bedside Glucose 160 121 242 H 94 Test 07/02/16 05:30 07/02/16 08:17 Blood Urea Nitrogen 31 #H Creatinine 1.06 Bedside Glucose 99 Medications Medications Current Medications Aspirin (Aspirin) 81 mg DAILY PO Last administered on 07/01/16 08:24; Admin Dose 81 MG; Start 06/30/16 at 09:00 Atorvastatin Calcium (Lipitor) 40 mg QHS PO Last administered on 07/01/16 20: 44; Admin Dose 40 MG; Start 06/29/16 at 21:00 Chlorthalidone (Hygroton) 25 mg DAILY PO Last administered on 07/01/16 08:27; Admin Dose 25 MG; Start 06/30/16 at 09:00 Collagenase (Santyl) 1 applic DAILY TOP Last administered on 07/01/16 08:27; Admin Dose 1 APPLIC; Start 06/30/16 at 09:00 Insulin Glargine (Lantus) 15 unit HS SC Last administered on 07/01/16 20:48; Admin Dose 15 UNIT; Start 06/29/16 at 21:00 Ondansetron HCl (Zofran Tab) 4 mg Q6H PRN PO NAUSEA AND/OR VOMITING; Start at 12:00 Acetaminophen (Tylenol Tab) 650 mg Q6H PRN PO PAIN LEVEL 1-3 OR FEVER; Start at 12:00 Acetaminophen (Tylenol Supp) 650 mg Q6H PRN [place] PAIN LEVEL 1-3 OR FEVER; Start 06/29/16 at 12:00 Acetaminophen/ Hydrocodone Bitart ([place] (5/325)) 1 tab Q6H PRN PO MODERATE PAIN LEVEL 4-6; Start 06/29/16 at 12:00 Acetaminophen/ Hydrocodone Bitart ([place] (5/325)) 2 tab Q6H PRN PO SEVERE PAIN LEVEL 7-10; Start 06/29/16 at 12:00 Docusate Sodium (Colace) 100 mg Q12H PRN PO CONSTIPATION; Start 06/29/16 at 12: 00 Enoxaparin Sodium (Lovenox) 40 mg DAILY SC Last administered on 07/01/16 08:29 ; Admin Dose 40 MG; Start 06/30/16 at 09:00 Metoclopramide HCl (Reglan) 5 mg Q8 PO Last administered on 07/02/16 06:09; Admin Dose 5 MG; Start 06/29/16 at 12:00 Miscellaneous Information 1 ea NOTE XX ; Start 06/29/16 at 12:30 Glucose (Glutose) 15 gm Q15M PRN PO DECREASED GLUCOSE; Start 06/29/16 at 12:30 Glucose (Glutose) 22.5 gm Q15M PRN PO DECREASED GLUCOSE; Start 06/29/16 at 12: 30 Dextrose (D50w Syringe) 25 ml Q15M PRN IV DECREASED GLUCOSE; Start 06/29/16 at 12:30 Dextrose (D50w Syringe) 50 ml Q15M PRN IV DECREASED GLUCOSE; Start 06/29/16 at 12:30 Glucagon (Glucagen) 1 mg Q15M PRN IM DECREASED GLUCOSE; Start 06/29/16 at 12:30 Glucose (Glutose) 15 gm Q15M PRN BUCCAL DECREASED GLUCOSE; Start 06/29/16 at 12 :30 Hydralazine HCl (Apresoline) 10 mg Q6H PRN IV ELEVATED BLOOD PRESSURE; Start at 17:30 Terbinafine HCl 250 mg 250 mg BID PO Last administered on 07/01/16 20:44; Admin Dose 250 MG; Start 07/01/16 at 10:00; Stop 07/08/16 at 09:59 Piperacillin Sod/ Tazobactam Sod 100 ml @ 200 mls/hr Q8 IVPB Last administered on 07/02/16 06:09; Admin Dose 200 MLS/HR; Start 07/01/16 at 15:30 Vancomycin HCl (Vancocin) 100 ml @ 100 mls/hr Q12H IVPB Last administered on 04:30; Admin Dose 100 MLS/HR; Start 07/02/16 at 04:00 Amlodipine Besylate (Norvasc) 5 mg DAILY PO ; Start 07/03/16 at 09:00; Status UNV Benazepril HCl (Lotensin) 40 mg BID PO ; Start 07/02/16 at 21:00; Status MELYSSA LAGUNA MD Jul 02, 2016 10:02
[2016-07-02] MEDS: INSULIN ASPART [NOVOLOG] 3 ML PEN SC SCH ×3 (10:14→18:30)
[2016-07-02] MEDS: ENOXAPARIN 40 MG/0.4 ML SYG SC SCH (10:15)
[2016-07-02] MEDS: ASPIRIN 81 MG TAB PO SCH (10:16)
[2016-07-02] MEDS: CHLORTHALIDONE 25 MG TAB PO SCH (10:16)
[2016-07-02] MEDS: COLLAGENASE 30 GM TUBE TOP SCH (10:26)
[2016-07-02] MEDS: BENAZEPRIL 40 MG TAB PO SCH ×2 (10:30→21:09)
[2016-07-02] MEDS: AMLODIPINE 5 MG TAB PO SCH (10:30)
[2016-07-02 10:31] VITALS: BP 110/53; PULSE 80; RESP 18
[2016-07-02 10:42] VITALS: BP 108/53; PULSE 79; RESP 18
--- NOTE | 2016-07-02 18:06 | CONS ---
Date/Time of Note Date/Time of Note DATE: 07/02/16 TIME: 18:05 Assessment/Plan Assessment/Plan Chief Complaint/Hosp Course ID PROGRESS NOTE CURRENT ABX=> Vanco IV #4 + Zosyn #4 24H INTERVAL SUMMARY * POD #1 => s/p R-Foot Debridement 07/01/16 w/Micro (-)24H * MRI 07/01/16: MRI findings suggestive of osteomyelitis of the fourth proximal phalanx. * DC Planning => received call from to dose OP ABX; however wound Cx from has not been finalized to date == Micro (-)24H * 06/30/16 0815 07/02/16 0530 PHYSICAL EXAMINATION: GENERAL: VSS, NAD HEENT: Unremarkable -- NECK: Supple CHEST: Rise symmetrical, without dyspnea on observation HEART: Pulse RRR ABDOMEN: Soft, benign EXTREMITIES: Warm - Right foot DSG C/D/I ID ASSESSMENT 75 yo M admit with PMHx type II DM, dyslipidemia, essential hypertension, PVD admit 06/29/16 with: 1. Acute on chronic right foot chronic diabetic non-healing foot ulcer infection evaluation & management. * MRI 07/01/16: MRI findings suggestive of osteomyelitis of the fourth proximal phalanx. * 07/01/16: Wound Cx: (-)24H * Hx JULY 2015 Wound Cx: COAGULASE NEGATIVE STAPH / ALPHA HEMOLYTIC STREP SPP= VIRIDANS / ENTEROBACTER CLOACAE POD #1 => DATE OF OPERATION: 07/01/2016 PROCEDURE PERFORMED: Right foot incision and drainage below fascia, with irrigation and open packing of ulceration. * PRE/POST OP DIAGNOSES: 1. Right foot hematoma/seroma. 2. Nonhealing diabetic foot ulceration. 3. History of partial fifth ray amputation. 4. Varus deformity of forefoot. 5. Suspected osteomyelitis. 2. Diabetes, poorly controlled w/hx of DM polyneuropathies * Diabetic gastroparesis w/Hx of N/V * Diabetic painful peripheral neuropathy 3. Peripheral Vascular/Arterial Disease 4. Essential Hypertension 5. Dyslipidemia 6. CKD w/hx of SCOTTIE prior admissions * PLAN: renally adjust medications, avoid nephrotoxins 8. Anemia of chronic CKD (-)MRSA NARES INVASIVES: PIV ABX ALLERGY: NKDA CURRENT ABX: TOTAL ABX DAY #4/42 days total ABX coverage for osteomyelitis => Vanco IV + Ceftriaxone 1GM daily x 6 weeks = last day 08/10/2016 Zosyn -> DC today ID RECOMMENDATIONS 1. F/U on final micro results pending prior to DC to ensure no GNR pathogens resistant to Ceftriaxone manifest. * Pt with hx of SCOTTIE = avoid long-term Vanco IV + Zosyn combo as can lead to renal toxicity unless monitored closely = do not recommend as OP combo. * Ceftriaxone will cover Strep + provide some anaerobic & GNR empiric coverage as well. Alternative is fluoroquinolone; however patient with severe peripheral neuropathy and this ABX can exacerbate this problem. 2. Patient may DC home 07/03/16 on the following IV ABX: * Vancomycin IV w/continued dosing per clinical pharmacist for a total of 6- weeks until last date 08/10/2016. * Regrets to -- I am unable to make final Vanco IV dose recommendations until baseline Vanco trough due 07/03/16 @ 0300 am is due and [facility] clinical pharmacists makes final recommendations on dose adjustment. * Unclear to me why requires ID provider to write final order for OP HH and OP Clinical Pharmacist to dose -- It is perfectly acceptable and legal for [facility] Clinical Pharmacist to advise on the next dosing since I have written an order for Vanco IV per clinical pharmacist dosing. Hence, I cannot advise on this tonight and must check with the [facility] clinical pharmacist tomorrow. Please consider checking with the clinical pharmacist and making arrangements per ID Provider standing order for Vanco IV to be dosed by clinical pharmacist recommendation until last day 08/10/2016. * Ceftriaxone 1GM IVPB daily until last date 08/10/2016. Problems: Consultation Date/Type/Reason Admit Date/Time Jun 29, 2016 at 09:07 Initial Consult Date Exam/Review of Systems Vital Signs Vitals Vital Signs Date Time Temp Pulse Resp B/P Pulse Ox O2 Delivery O2 Flow Rate FiO2 07/02/16 10:42 98.9 79 18 108/53 97 Room Air Intake and Output 07/01/16 07/01/16 07/02/16 15:00 23:00 07:00 Intake Total 1610.003 ml 350 ml Output Total 1460 ml Balance 1610.003 ml -1110 ml Results Result Diagram: 06/30/16 0815 07/02/16 0530 Results 24 hrs Laboratory Tests Test 07/01/16 20:43 07/02/16 02:51 07/02/16 05:30 07/02/16 08:17 Bedside Glucose 242 H 94 99 Blood Urea Nitrogen 31 #H Creatinine 1.06 Test 07/02/16 12:04 07/02/16 17:30 Bedside Glucose 125 97 Medications Medications Current Medications Aspirin (Aspirin) 81 mg DAILY PO Last administered on 07/02/16 10:16; Admin Dose 81 MG; Start 06/30/16 at 09:00 Atorvastatin Calcium (Lipitor) 40 mg QHS PO Last administered on 07/01/16 20: 44; Admin Dose 40 MG; Start 06/29/16 at 21:00 Chlorthalidone (Hygroton) 25 mg DAILY PO Last administered on 07/02/16 10:16; Admin Dose 25 MG; Start 06/30/16 at 09:00 Collagenase (Santyl) 1 applic DAILY TOP Last administered on 07/02/16 10:26; Admin Dose 1 APPLIC; Start 06/30/16 at 09:00 Insulin Glargine (Lantus) 15 unit HS SC Last administered on 07/01/16 20:48; Admin Dose 15 UNIT; Start 06/29/16 at 21:00 Ondansetron HCl (Zofran Tab) 4 mg Q6H PRN PO NAUSEA AND/OR VOMITING; Start at 12:00 Acetaminophen (Tylenol Tab) 650 mg Q6H PRN PO PAIN LEVEL 1-3 OR FEVER; Start at 12:00 Acetaminophen (Tylenol Supp) 650 mg Q6H PRN [place] PAIN LEVEL 1-3 OR FEVER; Start 06/29/16 at 12:00 Acetaminophen/ Hydrocodone Bitart ([place] (5/325)) 1 tab Q6H PRN PO MODERATE PAIN LEVEL 4-6; Start 06/29/16 at 12:00 Acetaminophen/ Hydrocodone Bitart ([place] (5/325)) 2 tab Q6H PRN PO SEVERE PAIN LEVEL 7-10; Start 06/29/16 at 12:00 Docusate Sodium (Colace) 100 mg Q12H PRN PO CONSTIPATION; Start 06/29/16 at 12: 00 Enoxaparin Sodium (Lovenox) 40 mg DAILY SC Last administered on 2/26/17at 10:15 ; Admin Dose 40 MG; Start 06/30/16 at 09:00 Metoclopramide HCl (Reglan) 5 mg Q8 PO Last administered on 07/02/16 15:19; Admin Dose 5 MG; Start 06/29/16 at 12:00 Miscellaneous Information 1 ea NOTE XX ; Start 06/29/16 at 12:30 Glucose (Glutose) 15 gm Q15M PRN PO DECREASED GLUCOSE; Start 06/29/16 at 12:30 Glucose (Glutose) 22.5 gm Q15M PRN PO DECREASED GLUCOSE; Start 06/29/16 at 12: 30 Dextrose (D50w Syringe) 25 ml Q15M PRN IV DECREASED GLUCOSE; Start 06/29/16 at 12:30 Dextrose (D50w Syringe) 50 ml Q15M PRN IV DECREASED GLUCOSE; Start 06/29/16 at 12:30 Glucagon (Glucagen) 1 mg Q15M PRN IM DECREASED GLUCOSE; Start 06/29/16 at 12:30 Glucose (Glutose) 15 gm Q15M PRN BUCCAL DECREASED GLUCOSE; Start 06/29/16 at 12 :30 Hydralazine HCl (Apresoline) 10 mg Q6H PRN IV ELEVATED BLOOD PRESSURE; Start at 17:30 Terbinafine HCl 250 mg 250 mg BID PO Last administered on 07/01/16 20:44; Admin Dose 250 MG; Start 07/01/16 at 10:00; Stop 07/08/16 at 09:59 Piperacillin Sod/ Tazobactam Sod 100 ml @ 200 mls/hr Q8 IVPB Last administered on 07/02/16 14:00; Admin Dose 200 MLS/HR; Start 07/01/16 at 15:30 Vancomycin HCl (Vancocin) 100 ml @ 100 mls/hr Q12H IVPB Last administered on 16:19; Admin Dose 100 MLS/HR; Start 07/02/16 at 04:00 Amlodipine Besylate (Norvasc) 5 mg DAILY PO ; Start 07/02/16 at 10:30 Benazepril HCl (Lotensin) 40 mg BID PO ; Start 07/02/16 at 10:30 Miscellaneous Information (*Rx Drug Level Order Reminder*) VANCOMCYIN TROUGH AT 0300 ONCE ONCE XX ; Start 07/03/16 at 03:00; Stop 07/03/16 at 03:01 JUANY SINGH NP Jul 02, 2016 18:06
--- NOTE | 2016-07-02 18:25 | CONS ---
DATE OF ADMISSION: 06/29/2016 DATE OF CONSULTATION: 07/02/2016 SUBJECTIVE FINDINGS: The patient being followed for a right foot infection status post incision and drainage. Cultures preliminary, no growth. The patient has had MRI which is suspicious of osteomy elitis of the fourth metatarsophalangeal joint. Patient denies any fever, nausea, vomiting overnigh t. The patient denies any pain at this time. OBJECTIVE FINDINGS: VITAL SIGNS: Temperature 98.9, pulse is 79, respiratory rate 18, blood pressure is 108/53, pulse ox is 97 at room air. GENERAL: Patient awake, alert, oriented, no acute distress. Regular respiration. EXTREMITIES: Patient with bulky dressing on the right foot, has open packing, 2+ DP, PT pulse. The re are venous stasis changes and ulceration on the plantar surface, which tunnels through the dorsal third interspace. Edema of the fourth toe persists at the level of the metatarsophalangeal joint. No malodor, no active purulence or sanguineous drainage. MRI findings suggestive of osteomyelitis of the fourth proximal phalanx, amputation of the fifth digit. LABORATORIES: WBC 5.3, hemoglobin 9.6, hematocrit 29.9, platelets 210. Glucose is 125. ASSESSMENT: 1. Right fourth toe osteomyelitis. 2. Right foot abscess, status post incision and drainage with definitive culture results pending. 3. Diabetes type 2 with peripheral neuropathy. 4. Edema. 5. Hypertension. PLAN: I discussed with the patient, x-rays and MRI findings and discussed treatment options to enta il amputation of fourth toe. The patient is hesitant to undergo additional surgery and would like t o discuss with his family. At this point given the patient's hesitation, discussed monitoring of wo und, IV antibiotics for 2 weeks' duration and follow up as an outpatient. If no improvement, will n eed amputation and can undergo amputation at that time. We will need case management assistance for home health and delivery of antibiotics. Further recommendations pending definitive culture result s. Dictated By: KYLEIGH DAILY/AYDEN Conf#: [id number] DID#: [id number]
[2016-07-02] MEDS ORDERED: CEFTRIAXONE 1 GM/50 ML (PMX) 50 ML IVPB ONE (19:00)
[2016-07-02 20:00] VITALS: BP 112/54; RESP 17
[2016-07-02] MEDS: ATORVASTATIN 40 MG TAB PO SCH (21:09)
[2016-07-02] MEDS: INSULIN GLARGINE [LANtus] 3 ML PEN SC SCH (21:15)
[2016-07-03] MEDS: VANCOMYCIN 500MG/NS (PMX) 100 ML IVPB SCH (04:47)
[2016-07-03] MEDS: METOCLOPRAMIDE 5 MG TAB PO SCH ×3 (05:39→23:12)
[2016-07-03 05:40] LABS: ADD SCAN DIFF NO
[2016-07-03 05:43] LABS: BASOPHILS % 0.5 % (0.0-2.0); EOSINOPHILS # 0.3 10^3/ul (0.0-0.5); EOSINOPHILS % 6.7 % (0.0-7.0); HEMATOCRIT 28.4 % (42.0-52.0); HEMOGLOBIN 9.4 g/dl (14.0-18.0); LYMPHOCYTES # 0.7 10^3/ul (0.8-2.9); LYMPHOCYTES % 17.4 % (15.0-51.0); MEAN CORPUSCULAR HEMOGLOBIN 28.7 pg (29.0-33.0); MEAN CORPUSCULAR HGB CONC 33.1 g/dl (32.0-37.0); MEAN CORPUSCULAR VOLUME 86.9 fl (82.0-101.0); MEAN PLATELET VOLUME 9.1 fl (7.4-10.4); MONOCYTE # 0.4 10^3/ul (0.3-0.9); MONOCYTES % 9.2 % (0.0-11.0); NEUTROPHIL # 2.6 10^3/ul (1.6-7.5); NEUTROPHILS % 65.9 % (39.0-77.0); PLATELET COUNT 205 10^3/UL (140-415); RED BLOOD COUNT 3.27 10^6/ul (4.70-6.10); RED CELL DISTRIBUTION WIDTH 13.2 % (11.5-14.5); WHITE BLOOD COUNT 3.9 10^3/ul (4.8-10.8)
[2016-07-03 05:59] LABS: POTASSIUM 3.8 mmol/L (3.5-5.1)
[2016-07-03 06:01] LABS: CREATININE 1.27 mg/dl (0.61-1.24)
[2016-07-03 06:02] LABS: CALCIUM 8.8 mg/dl (8.4-10.2)
[2016-07-03] MEDS: INSULIN ASPART [NOVOLOG] 3 ML PEN SC SCH ×3 (07:35→18:40)
[2016-07-03 08:28] VITALS: BP 108/53; RESP 18
[2016-07-03] MEDS: CEFTRIAXONE 1 GM/50 ML (PMX) 50 ML IVPB SCH (08:35)
[2016-07-03] MEDS: TERBINAFINE 250 MG TAB PO SCH ×2 (08:36→21:33)
[2016-07-03] MEDS: CHLORTHALIDONE 25 MG TAB PO SCH (08:37)
[2016-07-03] MEDS: AMLODIPINE 5 MG TAB PO SCH ×2 (08:38→08:43)
[2016-07-03] MEDS: BENAZEPRIL 40 MG TAB PO SCH ×3 (08:39→21:33)
[2016-07-03] MEDS: ENOXAPARIN 40 MG/0.4 ML SYG SC SCH (08:40)
[2016-07-03] MEDS: COLLAGENASE 30 GM TUBE TOP SCH (08:41)
[2016-07-03] MEDS: ASPIRIN 81 MG TAB PO SCH (08:45)
[2016-07-03 11:07] VITALS: BP 108/53; PULSE 77; RESP 18
[2016-07-03] MEDS ORDERED: CEFT1PIG2 IVPB (14:16)
[2016-07-03] MEDS ORDERED: DAPT500V IV (14:17)
--- NOTE | 2016-07-03 14:27 | DS ---
Date/Time of Note Date/Time of Note DATE: 07/03/16 TIME: 14:19 Discharge Summary Admission/Discharge Info Admit Date/Time Jun 29, 2016 at 09:07 Discharge Date/Time Final Diagnosis 1. Diabetic foot ulcer. status post amputation of the third and fourth toe of the right foot, osteomyelitis on 4th toe, needs PICC line with 6 weeks daptomycin and rocephin 2. Diabetes mellitus, stable, follow up with PCP 3. History of dyslipidemia. on zocor 4. Essential hypertension, controlled 5. Peripheral vascular disease. Continue aspirin and statin. Patient Condition: Stable Hospital Course This is a 75-year-old gentleman with past medical history of diabetes mellitus type 2, dyslipidemia, essential hypertension, peripheral vascular disease and right foot chronic ulcer, status post amputation of the third and fourth toe of the right foot. He presented to [facility] secondary to worsening of the diabetic ulcer on the sole of right foot. Patient states that he recently completed antibiotic course that was prescribed but he was being seen and evaluated by home health daily and received ongoing wound care and dressing changes constantly. The patient stated that the reason for his visit is the concern of his home health nurse. The nurse believed that his wound is not getting better and concerned about fever and chills which he experienced at home. He denies having any pain or any other discomfort. No fever, chills, weight gain, weight loss, anorexia. No chest pain, palpitations, edema, orthopnea. No change in visual acuity, diplopia, photophobia or any other discomfort. Patient has Right fourth toe osteomyelitis on MRI, right foot abscess, that he got incision and drainage. Patient is recommended having toe amputation that he declines now. He will be on iv daptomycin/rocephin and follow up with movie operator Dr. Espana in two weeks. Home Meds Active Scripts Daptomycin (Daptomycin) 500 Mg Vial, 360 MG IV DAILY for 42 Days, VIAL Prov:NURY WARE MD 07/03/16 Ceftriaxone Sod* (Rocephin* 1GM/50ML (PMX)) 1 Gm/50 Ml Iv.soln., 1 GM IVPB Q24H for 42 Days, EA Prov:NURY WARE MD 07/03/16 Ibuprofen* (Ibuprofen*) 600 Mg Tablet, 600 MG PO Q8 for PAIN AND/OR INFLAMMATION , #30 TAB Prov:NANDINI HOYT MD 05/25/16 Insulin Glargine* (Lantus*) 100 Unit/Ml Soln, 22 UNIT SC HS for 30 Days, 2 Refills Prov:DELORES CHRISTYShiva EliezerHarpreet 05/20/16 Insulin Aspart* (Novolog Insulin Pen*) 100 Unit/Ml Soln, 7 UNIT SC WITH MEALS for 30 Days, 1 Refill Prov:DELORES CHRISTYShiva Lipscomb 05/20/16 Metoclopramide Hcl (Reglan) 5 Mg Tab, 5 MG PO Q8H for 14 Days, TAB Prov:WESTLEYSTEFFANIE Harpreet 05/20/16 Glipizide* (Glipizide*) 5 Mg Tablet, 5 MG PO BID, #60 TAB Prov:ADIA CHRISTYÁNGEL Lipscomb 05/20/16 Collagenase* (Santyl*) 30 Gm Oint..gm., 1 APPLIC TOP DAILY, #30 G 1 Refill Prov:DELORES CHRISTYShiva EliezerHarpreet 05/20/16 Reported Medications Benazepril Hcl* (Benazepril Hcl*) 40 Mg Tablet, 40 MG PO DAILY, #30 TAB 11/28/15 Atorvastatin* (Atorvastatin*) 40 Mg Tablet, 40 MG PO QHS, #30 TAB 07/24/15 Aspirin* (Aspirin* Chew) 81 Mg Tab.chew, 81 MG PO DAILY, TAB.CHEW 07/24/15 Chlorthalidone* (Chlorthalidone*) 25 Mg Tablet, 25 MG PO DAILY, TAB 07/24/15 Amlodipine Besylate* (Amlodipine Besylate*) 10 Mg Tablet, 10 MG PO DAILY, #30 TAB 07/24/15 Discontinued Scripts Sulfamethoxazole-Trimethoprim* (Bactrim* DS) 800-160 Mg Tab, 1 TAB PO BID for 14 Days, TAB Prov:NANDINI HOYT MD 05/25/16 Cephalexin* (Keflex*) 500 Mg Capsule, 500 MG PO TID for 14 Days, CAP Prov:NANDINI HOYT MD 05/25/16 Ciprofloxacin Hcl* (Ciprofloxacin Hcl*) 500 Mg Tablet, 500 MG PO BID, #14 TAB Prov:ADIA CHRISTYÁNGEL Lipscomb 05/20/16 Amoxicillin/Potassium Clav (Amox-Clav 875-125 mg Tablet) 875-125 mg Tab, 1 TAB PO BID, #14 TAB Prov:STEFFANIE CHRISTY 05/20/16 Follow-up Plan PCP in one week Dr. Peace in two weeks Pending Labs Laboratory Tests Test 07/02/16 17:30 07/02/16 21:07 07/03/16 03:00 07/03/16 05:05 Bedside Glucose 97mg/dL (70-220) 160mg/dL (70-220) Vancomycin Level Trough 14.5ug/ml (10.0-20.0) Anion Gap 17 (8-16) Basophils # 0.010^3/ul (0.0-0.1) Basophils % 0.5% (0.0-2.0) Blood Urea Nitrogen 39mg/dl (7-20) Calcium Level 8.8mg/dl (8.4-10.2) Carbon Dioxide Level 27mmol/L (21-31) Chloride Level 101mmol/L (97-110) Creatinine 1.27mg/dl (0.61-1.24) Eosinophils # 0.310^3/ul (0.0-0.5) Eosinophils % 6.7% (0.0-7.0) Glucose Level 93mg/dl (70-220) Hematocrit 28.4% (42.0-52.0) Hemoglobin 9.4g/dl (14.0-18.0) Hemoglobin A1c 9.1% (0-5.9) Lymphocytes # 0.710^3/ul (0.8-2.9) Lymphocytes % 17.4% (15.0-51.0) Mean Corpuscular Hemoglobin 28.7pg (29.0-33.0) Mean Corpuscular Hemoglobin Concent 33.1g/dl (32.0-37.0) Mean Corpuscular Volume 86.9fl (82.0-101.0) Mean Platelet Volume 9.1fl (7.4-10.4) Monocytes # 0.410^3/ul (0.3-0.9) Monocytes % 9.2% (0.0-11.0) Neutrophils # 2.610^3/ul (1.6-7.5) Neutrophils % 65.9% (39.0-77.0) Nucleated Red Blood Cells # 0.010^3/ul (0.0-0.0) Nucleated Red Blood Cells % 0.0/100WBC (0.0-0.0) Platelet Count 22320^3/UL (140-415) Potassium Level 3.8mmol/L (3.5-5.1) Red Blood Count 3.2710^6/ul (4.70-6.10) Red Cell Distribution Width 13.2% (11.5-14.5) Sodium Level 141mmol/L (135-144) White Blood Count 3.910^3/ul (4.8-10.8) Test 07/03/16 07:59 07/03/16 11:49 Bedside Glucose 76mg/dL (70-220) 210mg/dL (70-220) NURY WARE MD Jul 03, 2016 14:27
[2016-07-03] MEDS ORDERED: LIDOCAINE 1% (MDV) 20 ML INJ SC ONE (14:30)
--- NOTE | 2016-07-03 16:44 | PN ---
DATE: 07/03/2016 SUBJECTIVE: No events overnight. The patient is awake, looks comfortable, no fevers. WBC 3.9, no shift, no bands. BUN 39, creatinine 1.27. MICROBIOLOGY: Wound culture growing diphtheroids. ANTIMICROBIALS: Patient is on IV Rocephin and vancomycin; vanco level 14.5. PHYSICAL EXAMINATION: GENERAL: Well-developed, elderly man who is in no distress. HEENT: Head atraumatic, normocephalic. Sclerae anicteric. Buccal mucosa pink. NECK: Supple. CHEST: Rise symmetrical. Breath sounds clear. HEART: S1, S2. ABDOMEN: Soft, bowel tones present. EXTREMITIES: With right foot dressing intact. ASSESSMENT: 1. Right foot cellulitis with osteomyelitis of the fourth toe, status post abscess incision and pramod inage. 2. Diabetes. 3. Hypertension. 4. Acute kidney insufficiency, possibly secondary to vancomycin. PLAN: Patient remains stable. We will continue him on current antimicrobials for now. Monitor joshua al function closely and adjust antibiotics based on renal function and patient's clinical status. P er podiatry recommendations, patient needs amputation of the fourth toe. Dictated By: HOMERO SIDHU CARBIDE DIE MAKER for DENISE MARTIN/AYDEN Conf#: [id number] DID#: [id number]
[2016-07-03] MEDS: DAPTOMYCIN 360 MG in SOD CHLORIDE 0.9% 100 ML IVPB SCH (18:37)
[2016-07-03] MEDS: INSULIN GLARGINE [LANtus] 3 ML PEN SC SCH (21:00)
[2016-07-03 21:10] VITALS: BP 121/55; RESP 18
[2016-07-03 21:13] VITALS: BP 121/55; RESP 18
[2016-07-03] MEDS: ATORVASTATIN 40 MG TAB PO SCH (21:33)
[2016-07-04 05:31] LABS: CREATININE 1.04 mg/dl (0.61-1.24)
[2016-07-04] MEDS: METOCLOPRAMIDE 5 MG TAB PO SCH ×2 (06:01→14:36)
[2016-07-04 07:23] VITALS: BP 104/54; RESP 18
[2016-07-04] MEDS: ASPIRIN 81 MG TAB PO SCH (08:27)
[2016-07-04] MEDS: CEFTRIAXONE 1 GM/50 ML (PMX) 50 ML IVPB SCH (08:27)
[2016-07-04] MEDS: TERBINAFINE 250 MG TAB PO SCH (08:28)
[2016-07-04] MEDS: CHLORTHALIDONE 25 MG TAB PO SCH (08:28)
[2016-07-04] MEDS: INSULIN ASPART [NOVOLOG] 3 ML PEN SC SCH ×3 (08:31→16:59)
[2016-07-04] MEDS: ENOXAPARIN 40 MG/0.4 ML SYG SC SCH (08:35)
[2016-07-04] MEDS: COLLAGENASE 30 GM TUBE TOP SCH (08:35)
[2016-07-04] MEDS: AMLODIPINE 5 MG TAB PO SCH (09:00)
[2016-07-04] MEDS: BENAZEPRIL 40 MG TAB PO SCH (09:00)
--- NOTE | 2016-07-04 12:47 | CONS ---
Date/Time of Note Date/Time of Note DATE: 07/04/16 TIME: 12:45 Assessment/Plan Assessment/Plan Chief Complaint/Hosp Course SUBJECTIVE: No events overnight. The patient is awake, looks comfortable, no fevers. MICROBIOLOGY: Wound culture corynebacterium ANTIMICROBIALS: Daptomycin and Rocephin PHYSICAL EXAMINATION: GENERAL: Well-developed, elderly man who is in no distress. HEENT: Head atraumatic, normocephalic. Sclerae anicteric. Buccal mucosa pink. NECK: Supple. CHEST: Rise symmetrical. Breath sounds clear. HEART: S1, S2. ABDOMEN: Soft, bowel tones present. EXTREMITIES: With right foot dressing intact. ASSESSMENT: 1. Right foot cellulitis with osteomyelitis of the fourth toe, status post abscess incision and drainage. 2. Diabetes. 3. Hypertension. 4. Acute kidney insufficiency, possibly secondary to vancomycin. PLAN: Patient remains stable. Anticipate dc on Daptomycin for 6 weeks, f/u podiatry rec-s ==>may need amputation of the fourth toe.Dc Poly FERRER staff Problems: Consultation Date/Type/Reason Admit Date/Time Jun 29, 2016 at 09:07 Initial Consult Date Type of Consultation: id Exam/Review of Systems Vital Signs Vitals Vital Signs Date Time Temp Pulse Resp B/P Pulse Ox O2 Delivery O2 Flow Rate FiO2 07/04/16 07:23 98.0 73 18 104/54 95 07/03/16 11:07 Room Air Intake and Output 07/03/16 07/03/16 07/04/16 15:00 23:00 07:00 Intake Total 100 ml 1460 ml Balance 100 ml 1460 ml Results Result Diagram: 07/03/16 0505 07/04/16 0455 Results 24 hrs Laboratory Tests Test 07/03/16 16:46 07/03/16 20:36 07/04/16 04:55 07/04/16 07:56 Bedside Glucose 173 89 121 Blood Urea Nitrogen 40 H Creatinine 1.04 Test 07/04/16 12:03 Bedside Glucose 230 H Medications Medications Current Medications Aspirin (Aspirin) 81 mg DAILY PO Last administered on 07/04/16 08:27; Admin Dose 81 MG; Start 06/30/16 at 09:00 Atorvastatin Calcium (Lipitor) 40 mg QHS PO Last administered on 07/03/16 21: 33; Admin Dose 40 MG; Start 06/29/16 at 21:00 Chlorthalidone (Hygroton) 25 mg DAILY PO Last administered on 07/04/16 08:28; Admin Dose 25 MG; Start 06/30/16 at 09:00 Collagenase (Santyl) 1 applic DAILY TOP Last administered on 07/04/16 08:35; Admin Dose 1 APPLIC; Start 06/30/16 at 09:00 Insulin Glargine (Lantus) 15 unit HS SC Last administered on 07/02/16 21:15; Admin Dose 15 UNIT; Start 06/29/16 at 21:00 Ondansetron HCl (Zofran Tab) 4 mg Q6H PRN PO NAUSEA AND/OR VOMITING; Start at 12:00 Acetaminophen (Tylenol Tab) 650 mg Q6H PRN PO PAIN LEVEL 1-3 OR FEVER; Start at 12:00 Acetaminophen (Tylenol Supp) 650 mg Q6H PRN ID PAIN LEVEL 1-3 OR FEVER; Start 06/29/16 at 12:00 Acetaminophen/ Hydrocodone Bitart ([place] (5/325)) 1 tab Q6H PRN PO MODERATE PAIN LEVEL 4-6; Start 06/29/16 at 12:00 Acetaminophen/ Hydrocodone Bitart ([place] (5/325)) 2 tab Q6H PRN PO SEVERE PAIN LEVEL 7-10; Start 06/29/16 at 12:00 Docusate Sodium (Colace) 100 mg Q12H PRN PO CONSTIPATION; Start 06/29/16 at 12: 00 Enoxaparin Sodium (Lovenox) 40 mg DAILY SC Last administered on 07/04/16 08:35 ; Admin Dose 40 MG; Start 06/30/16 at 09:00 Metoclopramide HCl (Reglan) 5 mg Q8 PO Last administered on 07/04/16 06:01; Admin Dose 5 MG; Start 06/29/16 at 12:00 Miscellaneous Information 1 ea NOTE XX ; Start 06/29/16 at 12:30 Glucose (Glutose) 15 gm Q15M PRN PO DECREASED GLUCOSE; Start 06/29/16 at 12:30 Glucose (Glutose) 22.5 gm Q15M PRN PO DECREASED GLUCOSE; Start 06/29/16 at 12: 30 Dextrose (D50w Syringe) 25 ml Q15M PRN IV DECREASED GLUCOSE; Start 06/29/16 at 12:30 Dextrose (D50w Syringe) 50 ml Q15M PRN IV DECREASED GLUCOSE; Start 06/29/16 at 12:30 Glucagon (Glucagen) 1 mg Q15M PRN IM DECREASED GLUCOSE; Start 06/29/16 at 12:30 Glucose (Glutose) 15 gm Q15M PRN BUCCAL DECREASED GLUCOSE; Start 06/29/16 at 12 :30 Hydralazine HCl (Apresoline) 10 mg Q6H PRN IV ELEVATED BLOOD PRESSURE; Start at 17:30 Terbinafine HCl (Lamisil) 250 mg BID PO Last administered on 07/04/16 08:28; Admin Dose 250 MG; Start 07/01/16 at 10:00; Stop 07/08/16 at 09:59 Amlodipine Besylate (Norvasc) 5 mg DAILY PO ; Start 07/02/16 at 10:30 Benazepril HCl 40 mg 40 mg BID PO Last administered on 07/03/16 21:33; Admin Dose 40 MG; Start 07/02/16 at 10:30 Ceftriaxone Sodium 50 ml @ 100 mls/hr Q24H IVPB Last administered on 08:27; Admin Dose 100 MLS/HR; Start 07/03/16 at 08:00; Stop 08/10/16 at 12: 00 Daptomycin/Sodium Chloride (Cubicin/NS) 100 ml @ 200 mls/hr Q24H IVPB Last administered on 07/03/16 18:37; Admin Dose 200 MLS/HR; Start 07/03/16 at 15:30 HOMERO SIDHU NP Jul 04, 2016 12:47
--- NOTE | 2016-07-04 14:57 | DS ---
Date/Time of Note Date/Time of Note DATE: 07/04/16 TIME: 14:54 Discharge Summary Admission/Discharge Info Admit Date/Time Jun 29, 2016 at 09:07 Discharge Date/Time Final Diagnosis 1. Diabetic foot ulcer. status post amputation of the third and fourth toe of the right foot, osteomyelitis on 4th toe, needs PICC line with 6 weeks daptomycin and rocephin 2. Diabetes mellitus, stable, follow up with PCP 3. History of dyslipidemia. on zocor 4. Essential hypertension, controlled 5. Peripheral vascular disease. Continue aspirin and statin. Patient Condition: Stable Hospital Course This is a 75-year-old gentleman with past medical history of diabetes mellitus type 2, dyslipidemia, essential hypertension, peripheral vascular disease and right foot chronic ulcer, status post amputation of the third and fourth toe of the right foot. He presented to [facility] secondary to worsening of the diabetic ulcer on the sole of right foot. Patient states that he recently completed antibiotic course that was prescribed but he was being seen and evaluated by home health daily and received ongoing wound care and dressing changes constantly. The patient stated that the reason for his visit is the concern of his home health nurse. The nurse believed that his wound is not getting better and concerned about fever and chills which he experienced at home. He denies having any pain or any other discomfort. No fever, chills, weight gain, weight loss, anorexia. No chest pain, palpitations, edema, orthopnea. No change in visual acuity, diplopia, photophobia or any other discomfort. Patient has Right fourth toe osteomyelitis on MRI, right foot abscess, that he got incision and drainage. Patient is recommended having toe amputation that he declines now. He will be on iv daptomycin/rocephin and follow up with facing machine operator Dr. Espana in two weeks. Home Meds Active Scripts Daptomycin (Daptomycin) 500 Mg Vial, 360 MG IV DAILY for 42 Days, VIAL Prov:NURY WARE MD 07/03/16 Ceftriaxone Sod* (Rocephin* 1GM/50ML (PMX)) 1 Gm/50 Ml Iv.soln., 1 GM IVPB Q24H for 42 Days, EA Prov:NURY WARE MD 07/03/16 Ibuprofen* (Ibuprofen*) 600 Mg Tablet, 600 MG PO Q8 for PAIN AND/OR INFLAMMATION , #30 TAB Prov:NANDINI HOYT MD 05/25/16 Insulin Glargine* (Lantus*) 100 Unit/Ml Soln, 22 UNIT SC HS for 30 Days, 2 Refills Prov:DELORES CHRISTYShiva EliezerHarpreet 05/20/16 Insulin Aspart* (Novolog Insulin Pen*) 100 Unit/Ml Soln, 7 UNIT SC WITH MEALS for 30 Days, 1 Refill Prov:DELORES CHRISTYShiva Lipscomb 05/20/16 Metoclopramide Hcl (Reglan) 5 Mg Tab, 5 MG PO Q8H for 14 Days, TAB Prov:WESTLEYSTEFFANIE Harpreet 05/20/16 Glipizide* (Glipizide*) 5 Mg Tablet, 5 MG PO BID, #60 TAB Prov:ADIA CHRISTYÁNGEL Lipscomb 05/20/16 Collagenase* (Santyl*) 30 Gm Oint..gm., 1 APPLIC TOP DAILY, #30 G 1 Refill Prov:DELORES CHRISTYShiva EliezerHarpreet 05/20/16 Reported Medications Benazepril Hcl* (Benazepril Hcl*) 40 Mg Tablet, 40 MG PO DAILY, #30 TAB 11/28/15 Atorvastatin* (Atorvastatin*) 40 Mg Tablet, 40 MG PO QHS, #30 TAB 07/24/15 Aspirin* (Aspirin* Chew) 81 Mg Tab.chew, 81 MG PO DAILY, TAB.CHEW 07/24/15 Chlorthalidone* (Chlorthalidone*) 25 Mg Tablet, 25 MG PO DAILY, TAB 07/24/15 Amlodipine Besylate* (Amlodipine Besylate*) 10 Mg Tablet, 10 MG PO DAILY, #30 TAB 07/24/15 Discontinued Scripts Sulfamethoxazole-Trimethoprim* (Bactrim* DS) 800-160 Mg Tab, 1 TAB PO BID for 14 Days, TAB Prov:NANDINI HOYT MD 05/25/16 Cephalexin* (Keflex*) 500 Mg Capsule, 500 MG PO TID for 14 Days, CAP Prov:NANDIIN HOYT MD 05/25/16 Ciprofloxacin Hcl* (Ciprofloxacin Hcl*) 500 Mg Tablet, 500 MG PO BID, #14 TAB Prov:ADIA CHRISTYÁNGEL Lipscomb 05/20/16 Amoxicillin/Potassium Clav (Amox-Clav 875-125 mg Tablet) 875-125 mg Tab, 1 TAB PO BID, #14 TAB Prov:STEFFANIE CHRISTY 05/20/16 Follow-up Plan PCP in one week Dr. Peace in two week Pending Labs Laboratory Tests Test 07/03/16 16:46 07/03/16 20:36 07/04/16 04:55 07/04/16 07:56 Bedside Glucose 173mg/dL (70-220) 89mg/dL (70-220) 121mg/dL (70-220) Blood Urea Nitrogen 40mg/dl (7-20) Creatinine 1.04mg/dl (0.61-1.24) Test 07/04/16 12:03 Bedside Glucose 230mg/dL (70-220) NURY WARE MD Jul 04, 2016 14:57
--- NOTE | 2016-07-04 16:07 | RADRPT ---
PROCEDURE: XR Chest. CLINICAL INDICATION: Check PICC line position. TECHNIQUE: Single frontal view. COMPARISON: Prior study done earlier the same day. FINDINGS: There is a left arm PICC line with the tip in the lower superior vena cava. The lungs are clear. The heart size is normal. There is calcification in the aorta consistent with atherosclerosis. There is no pleural effusion. There is no pneumothorax. IMPRESSION: 1. Satisfactory position of left arm PICC line. 2. Atherosclerosis. 3. Otherwise normal chest radiograph. RPTAT: QQ .Saqib Dennison MD, MD Date Time Electronically viewed and signed by .Saqib Dennison MD, MD on 07/04/2016 16:07 .R/
--- NOTE | 2016-07-04 16:39 | RADRPT ---
PROCEDURE: Ultrasound guidance for placement of needle in left upper extremity vein. CLINICAL INDICATION: Venous access. TECHNIQUE: Limited sonography of the left upper extremity was performed. Ultrasound images were recorded and s tored in the patient's medical record. COMPARISON: None. FINDINGS: The ultrasound images demonstrate a patent left upper extremity vein. The PICC line was inserted by the PICC line nurse. IMPRESSION: 1. Ultrasound guidance for a needle placement in a left upper extremity vein. 2. The left upper extremity vein is patent. RPTAT: QQ .Saqib Dennison MD, MD Date Time Electronically viewed and signed by .Saqib Dennison MD, MD on 07/04/2016 16:39 .R/
[2016-07-04] MEDS: DAPTOMYCIN 360 MG in SOD CHLORIDE 0.9% 100 ML IVPB SCH (16:56)
--- NOTE | 2016-07-04 20:01 | RADRPT ---
PROCEDURE: XR Chest. CLINICAL INDICATION: Check PICC line position. TECHNIQUE: Single frontal view. COMPARISON: 05/17/2016. FINDINGS: There is a left arm PICC line with the tip coiled in the superior vena cava.. The lungs are clear. The heart size is normal. There is calcification in the aorta consistent with atherosclerosis. There is no pleural effusion. There is no pneumothorax. IMPRESSION: 1. Suboptimal position of left arm PICC line. Repositioning is required. Results called to the PIC C line nurse. 2. The heart size is normal. There is calcification in the aorta consistent with atherosclerosis.. 3. Otherwise unremarkable chest x-ray. RPTAT: QQ .Saqib Dennison MD, MD Date Time Electronically viewed and signed by .Saqib Dennison MD, on 07/04/2016 16:04 .R/
[2016-07-05] MEDS ORDERED: SOD CHLORIDE 0.9% 100 ML ONE (10:34)
== END 2016-07-04 19:19 | disposition home health service (06) | DRG 988 ==
LOC: FTE 08:02 → PP2 09:07
PROVIDERS: ADMIT Family Medicine; ATTEND Family Medicine
PROC: 0J9Q0ZZ Drainage of Right Foot Subcutaneous Tissue and Fascia, Open Approach (ICD-10-PCS; principal; 2016-07-01)
PROC: 02HV33Z Insertion of Infusion Device into Superior Vena Cava, Percutaneous Approach (ICD-10-PCS; 2016-07-04)
DX: E11.628 Type 2 diabetes mellitus with other skin complications (principal); L02.611 Cutaneous abscess of right foot; M86.671 Other chronic osteomyelitis, right ankle and foot; E11.621 Type 2 diabetes mellitus with foot ulcer; E11.65 Type 2 diabetes mellitus with hyperglycemia; K31.84 Gastroparesis; E11.40 Type 2 diabetes mellitus with diabetic neuropathy, unspecified; L03.115 Cellulitis of right lower limb; E11.69 Type 2 diabetes mellitus with other specified complication; L97.519 Non-pressure chronic ulcer of other part of right foot with unspecified severity; E11.43 Type 2 diabetes mellitus with diabetic autonomic (poly)neuropathy; Z89.421 Acquired absence of other right toe(s); I10 Essential (primary) hypertension; I73.9 Peripheral vascular disease, unspecified; E78.5 Hyperlipidemia, unspecified; B35.1 Tinea unguium; M21.171 Varus deformity, not elsewhere classified, right ankle; N28.9 Disorder of kidney and ureter, unspecified; B96.89 Other specified bacterial agents as the cause of diseases classified elsewhere
CPT/HCPCS: 36415; 36569; 71010; 73630; 73718; 76937; 80048; 80053; 80061; 80202; 82565; 82962; 83036; 83605; 83735; 84484; 84520; 85025; 85610; 85730; 87040; 87070; 93005; 96365; 96366; 96367; 96372; 96375; 97116; 97163; 97530; C1769; J0360; J0696; J1650; J1815; J2543; J3370; J7030; J7050

== ENCOUNTER 2016-09-04 12:40 | Emergency (ER) | payer MEDICARE, MEDICAID ==
[~2016-09-04] VITALS: Ht 165.1 cm; Wt 67.5 kg
[~2016-09-04 12:40] MED LIST changes: -AMOX1TAB10 PO; -BACTDS PO; +CEFT1PIG2 IVPB; -CEPH-443 PO; -CIPR500T4 PO; +DAPT500V IV
[2016-09-04 12:45] VITALS: Ht 165.1 cm; Wt 67.5 kg
[2016-09-04] MEDS ORDERED: LIDOCAINE 1% (MPF) 5 ML VIAL SC ONE (16:30)
--- NOTE | 2016-09-04 17:25 | RADRPT ---
PROCEDURE: US guidance for PICC line CLINICAL INDICATION: PICC line placement TECHNIQUE: Multiple real-time images were acquired of the patient's arm utilizing a high resolutio n transducer. This was performed by the PICC line nurse for venous access. COMPARISON: None FINDINGS: Ultrasound guidance for PICC line placement. IMPRESSION: Ultrasound guidance for PICC line placement. RPTAT: AA .Rodger Flores MD, MD Date Time Electronically viewed and signed by .Rodger Flores MD, on 09/04/2016 17:25 .S/
--- NOTE | 2016-09-04 17:28 | ERA ---
ER Documentation Chief Complaint Date/Time DATE: 09/04/16 TIME: 17:25 Chief Complaint LT ARM CATHETER ACCESS PROBLEM HPI This is a 76-year-old Citizen Of [place]-speaking male. An early childhood education instructor was used. The patient is an exquisitely poor historian. Patient is unsure why he was told to come to the emergency room but he thinks he was told to come to the ER because of a PICC line. After further conversation with an RN on the phone it appears the patient was sent to the emergency room for PICC line though the patient had an appointment at 1 PM that he missed. The nurse also said that he was supposed to go to [facility] but this is also not true. The patient is supposed to have a PICC line placed so he can receive IV antibiotics at home for osteomyelitis of the right lower extremity. He denies any fevers or chills. Remainder of HPI is limited. ROS All systems reviewed and are negative except as per history of present illness. Medications Home Meds Active Scripts Daptomycin (Daptomycin) 500 Mg Vial, 360 MG IV DAILY for 42 Days, VIAL Prov:NURY WARE MD 07/03/16 Ceftriaxone Sod* (Rocephin* 1GM/50ML (PMX)) 1 Gm/50 Ml Iv.soln., 1 GM IVPB Q24H for 42 Days, EA Prov:NURY WARE MD 07/03/16 Ibuprofen* (Ibuprofen*) 600 Mg Tablet, 600 MG PO Q8 for PAIN AND/OR INFLAMMATION , #30 TAB Prov:NANDINI HOYT MD 05/25/16 Insulin Glargine* (Lantus*) 100 Unit/Ml Soln, 22 UNIT SC HS for 30 Days, 2 Refills Prov:STEFFANIE CHRISTY 05/20/16 Insulin Aspart* (Novolog Insulin Pen*) 100 Unit/Ml Soln, 7 UNIT SC WITH MEALS for 30 Days, 1 Refill Prov:STEFFANIE CHRISTY 05/20/16 Metoclopramide Hcl (Reglan) 5 Mg Tab, 5 MG PO Q8H for 14 Days, TAB Prov:STEFFANIE CHRISTY 05/20/16 Glipizide* (Glipizide*) 5 Mg Tablet, 5 MG PO BID, #60 TAB Prov:STEFFANIE CHRISTY 05/20/16 Collagenase* (Santyl*) 30 Gm Oint..gm., 1 APPLIC TOP DAILY, #30 G 1 Refill Prov:STEFFANIE CHRISTY. 05/20/16 Reported Medications Benazepril Hcl* (Benazepril Hcl*) 40 Mg Tablet, 40 MG PO DAILY, #30 TAB 11/28/15 Atorvastatin* (Atorvastatin*) 40 Mg Tablet, 40 MG PO QHS, #30 TAB 07/24/15 Aspirin* (Aspirin* Chew) 81 Mg Tab.chew, 81 MG PO DAILY, TAB.CHEW 07/24/15 Chlorthalidone* (Chlorthalidone*) 25 Mg Tablet, 25 MG PO DAILY, TAB 07/24/15 Amlodipine Besylate* (Amlodipine Besylate*) 10 Mg Tablet, 10 MG PO DAILY, #30 TAB 07/24/15 Allergies Allergies: Coded Allergies: No Known Allergy (Unverified , 06/29/16) PMhx/Soc History of Surgery: Yes (5th toe amputation) Anesthesia Reaction: No Hx Neurological Disorder: No Hx Respiratory Disorders: No Hx Cardiac Disorders: Yes (hypertension, ) Hx Psychiatric Problems: No Hx Miscellaneous Medical Probl: Yes (see notes) Hx Alcohol Use: No Hx Substance Use: No Hx Tobacco Use: No Physical Exam Vitals Vital Signs Date Time Temp Pulse Resp B/P Pulse Ox O2 Delivery O2 Flow Rate FiO2 09/04/16 12:45 98.0 75 18 125/59 99 Physical Exam General: Well developed, well nourished, no acute distress Head: Normocephalic, atraumatic. Eyes: EOM intact ENT: Moist mucous membranes Neck: Full ROM Respiratory: No respiratory distress Cardiovascular: Good capillary refil Abdominal: Nondistended : Deferred MSK: No edema, no unilateral swelling, 5/5 strength Neurologic: Alert and oriented, moving all extremities, normal speech, steady gait Skin: No rash Psych: Normal mood Results 24 hrs Current Medications Medications (Trade) Dose Ordered Sig/Lynn Route PRN Reason Start Time Stop Time Status Last Admin Dose Admin Lidocaine (Xylocaine 1% (Mpf)) 5 ml ONCE ONCE SC 09/04/16 16:30 09/04/16 16:31 DC Procedures/MDM MEDICAL DECISION MAKING: Patient sent to the emergency room for evaluation and placement of PICC line. After prolonged conversations we were able to ascertain that the patient has home health care provider, antibiotics have already been ordered. The patient only needs a PICC line. ER COURSE: The patient was consented for PICC line. PICC line was placed. The patient will be discharged home. PICC line instruction care was provided to the patient. I kept the patient and/or family informed of laboratory and diagnostic imaging results throughout the emergency room course. DISPOSITION PLAN: We discussed follow up with the patient's primary care doctor within 24 to 48 hours as needed. We also discussed return to the emergency room for worsening symptoms or worsening condition. Outpatient referral: [None required] Departure Diagnosis: Primary Impression: Status post PICC central line placement Condition: Stable ELIDIA BABB MD September 04, 2016 17:28
--- NOTE | 2016-09-04 17:59 | RADRPT ---
PROCEDURE: XR Chest. CLINICAL INDICATION: PICC line placement TECHNIQUE: Single frontal chest x-ray. COMPARISON: 07/04/2016 FINDINGS: Left-sided PICC line tip is in the SVC. No acute infiltrate, pleural effusion or pneumothorax is id entified. Cardiomediastinal silhouette is within normal limits. The osseous structures are unremar kable. IMPRESSION: 1. No evidence of acute cardiopulmonary process. 2. Left-sided PICC line in good position. RPTAT: HDWR .Vernon Holland MD, MD Date Time Electronically viewed and signed by .Vernon Holland MD, MD on 09/04/2016 17:59 .R/
== END 2016-09-04 18:05 | disposition home or self-care (01) ==
LOC: FTE 12:40
DX: Z45.2 Encounter for adjustment and management of vascular access device (principal); I10 Essential (primary) hypertension; E11.9 Type 2 diabetes mellitus without complications; Z79.4 Long term (current) use of insulin; Z79.82 Long term (current) use of aspirin; Z79.84 Long term (current) use of oral hypoglycemic drugs
CPT/HCPCS: 36569; 71010; 76937

== ENCOUNTER 2016-09-15 11:02 | Emergency (ER) | payer MEDICARE, MEDICAID ==
[~2016-09-15] VITALS: Ht 160 cm; Wt 67.8 kg
[2016-09-15 11:13] VITALS: Ht 160 cm; Wt 67.8 kg
--- NOTE | 2016-09-15 11:40 | ERD ---
ER Documentation Chief Complaint Date/Time DATE: 09/15/16 TIME: 11:36 Chief Complaint right arm picc line clogged HPI This 76-year-old male came to the emergency room because today his PICC line is clogged is not able to administer his dose of home Rocephin. He is on Rocephin for infection in his great toe. Yesterday his PICC line worked well. Today he was unable to flush. He only tried to use the one port out of 2 ports. States he otherwise feels well. Does not have any increasing symptoms does not have any increasing toe pain. He has not had any fevers or chills lately. Feels otherwise well. ROS All systems reviewed and are negative except as per history of present illness. Medications Home Meds Active Scripts Daptomycin (Daptomycin) 500 Mg Vial, 360 MG IV DAILY for 42 Days, VIAL Prov:NURY WARE MD 07/03/16 Ceftriaxone Sod* (Rocephin* 1GM/50ML (PMX)) 1 Gm/50 Ml Iv.soln., 1 GM IVPB Q24H for 42 Days, EA Prov:NURY WARE MD 07/03/16 Ibuprofen* (Ibuprofen*) 600 Mg Tablet, 600 MG PO Q8 for PAIN AND/OR INFLAMMATION , #30 TAB Prov:NANDINI HOYT MD 05/25/16 Insulin Glargine* (Lantus*) 100 Unit/Ml Soln, 22 UNIT SC HS for 30 Days, 2 Refills Prov:STEFFANIE CHRISTY 05/20/16 Insulin Aspart* (Novolog Insulin Pen*) 100 Unit/Ml Soln, 7 UNIT SC WITH MEALS for 30 Days, 1 Refill Prov:STEFFANIE CHRISTY 05/20/16 Metoclopramide Hcl (Reglan) 5 Mg Tab, 5 MG PO Q8H for 14 Days, TAB Prov:STEFFANIE CHIRSTY 05/20/16 Glipizide* (Glipizide*) 5 Mg Tablet, 5 MG PO BID, #60 TAB Prov:STEFFANIE CHRISTY 05/20/16 Collagenase* (Santyl*) 30 Gm Oint..gm., 1 APPLIC TOP DAILY, #30 G 1 Refill Prov:STEFFANIE CHRISTY 05/20/16 Reported Medications Benazepril Hcl* (Benazepril Hcl*) 40 Mg Tablet, 40 MG PO DAILY, #30 TAB 11/28/15 Atorvastatin* (Atorvastatin*) 40 Mg Tablet, 40 MG PO QHS, #30 TAB 07/24/15 Aspirin* (Aspirin* Chew) 81 Mg Tab.chew, 81 MG PO DAILY, TAB.CHEW 07/24/15 Chlorthalidone* (Chlorthalidone*) 25 Mg Tablet, 25 MG PO DAILY, TAB 07/24/15 Amlodipine Besylate* (Amlodipine Besylate*) 10 Mg Tablet, 10 MG PO DAILY, #30 TAB 07/24/15 Allergies Allergies: Coded Allergies: No Known Allergy (Unverified , 06/29/16) PMhx/Soc History of Surgery: Yes (5th toe amputation) Anesthesia Reaction: No Hx Neurological Disorder: No Hx Respiratory Disorders: No Hx Cardiac Disorders: Yes (hypertension, ) Hx Psychiatric Problems: No Hx Miscellaneous Medical Probl: Yes (see notes) Hx Alcohol Use: No Hx Substance Use: No Hx Tobacco Use: No Physical Exam Vitals Vital Signs Date Time Temp Pulse Resp B/P Pulse Ox O2 Delivery O2 Flow Rate FiO2 09/15/16 11:13 98.1 67 18 123/67 99 Physical Exam Const: [] No distress Head: Atraumatic Eyes: Normal Conjunctiva ENT: Normal External Ears, Nose and Mouth. Neck: Full range of motion..~ No meningismus. Resp: Clear to auscultation bilaterally Cardio: Regular rate and rhythm, no murmurs Skin: No petechiae or rashes Back: No midline or flank tenderness Ext: No cyanosis, or edema, distal pulses intact all 4 extremities, PICC line present in left upper arm, site clean dry and intact. Neur: Awake and alert and oriented 3, no focal deficits Psych: Normal Mood and Affect Procedures/MDM Perform simple troubleshooting of the patient's PICC line and found that the cap to His line was occluded. I cleaned the line with alcohol. I removed the cap and was able to get good blood flow and flushed with normal saline with no difficulty. The other Did not appear to be occluded yet. I did remove that anyway and replace a new On that as well. Was able to administer the patient's Rocephin dose, which he had with him, with no difficulties. This point the patient has no other complaints I am going to discharge him see his doctor in the next few days. I will also providing him with 2 new sealed capsules that explained to him after cleaning with alcohol he can place on the line if this problem recurs. Departure Diagnosis: Primary Impression: Occluded PICC line Condition: Stable Patient Instructions: Caring for Your Peripherally Inserted Central Catheter ( PICC) Additional Instructions: Llame al doctor MAANA y aakash yosvany TAMIE PARA DENTRO DE 2-3 SHARMA.Dgale a la secretaria que nosotros le instruimos hacer esta tamie.Avise o llame si lynch condicin se empeora antes de la tamie. Regresa aqui si peor o no mejor. MELYSSA HUGGINS DO September 15, 2016 11:40
== END 2016-09-15 11:50 | disposition home or self-care (01) ==
LOC: E/R 11:02
DX: T82.868A Thrombosis due to vascular prosthetic devices, implants and grafts, initial encounter (principal); I10 Essential (primary) hypertension; Y82.8 Other medical devices associated with adverse incidents; Z79.4 Long term (current) use of insulin; Z79.82 Long term (current) use of aspirin
CPT/HCPCS: 99282

== ENCOUNTER 2016-10-19 08:13 | Emergency (ER) | payer MEDICARE, MEDICAID ==
[~2016-10-19] VITALS: Ht 167.6 cm; Wt 66.0 kg
[2016-10-19 08:16] VITALS: Ht 167.6 cm; Wt 66.0 kg
[2016-10-19] MEDS ORDERED: ONDANSETRON (ODT) 4 MG TAB ODT STA (08:45)
[2016-10-19] MEDS ORDERED: ONDA4TAB14 PO (09:04)
--- NOTE | 2016-10-19 09:06 | ERD ---
ER Documentation Chief Complaint Date/Time DATE: 10/19/16 TIME: 09:06 Chief Complaint Complains of vomiting x 3 days HPI Patient is a 76-year-old male with diabetes who presents with nausea and vomiting. The symptoms started 2 days ago. He has had 3 episodes of nausea and vomiting per day without blood. He has diarrhea as well. He has no fevers. He has had no treatment as of yet. He denies pain. ROS All systems reviewed and are negative except as per history of present illness. Medications Home Meds Active Scripts Ondansetron (Ondansetron Odt) 4 Mg Tab.rapdis, 4 MG PO Q6H Y for NAUSEA AND/OR VOMITING, #10 TAB Prov:BLAIRE SANCHEZ MD 10/19/16 Daptomycin (Daptomycin) 500 Mg Vial, 360 MG IV DAILY for 42 Days, VIAL Prov:NURY WARE MD 07/03/16 Ceftriaxone Sod* (Rocephin* 1GM/50ML (PMX)) 1 Gm/50 Ml Iv.soln., 1 GM IVPB Q24H for 42 Days, EA Prov:NURY WARE MD 07/03/16 Ibuprofen* (Ibuprofen*) 600 Mg Tablet, 600 MG PO Q8 for PAIN AND/OR INFLAMMATION , #30 TAB Prov:NANDINI HOYT MD 05/25/16 Insulin Glargine* (Lantus*) 100 Unit/Ml Soln, 22 UNIT SC HS for 30 Days, 2 Refills Prov:STEFFANIE CHRISTY 05/20/16 Insulin Aspart* (Novolog Insulin Pen*) 100 Unit/Ml Soln, 7 UNIT SC WITH MEALS for 30 Days, 1 Refill Prov:STEFFANIE CHRISTY 05/20/16 Metoclopramide Hcl (Reglan) 5 Mg Tab, 5 MG PO Q8H for 14 Days, TAB Prov:STEFFANIE CHRISTY 05/20/16 Glipizide* (Glipizide*) 5 Mg Tablet, 5 MG PO BID, #60 TAB Prov:STEFFANIE CHRISTY 05/20/16 Collagenase* (Santyl*) 30 Gm Oint..gm., 1 APPLIC TOP DAILY, #30 G 1 Refill Prov:STEFFANIE CHRISTY 1/14/17 Reported Medications Benazepril Hcl* (Benazepril Hcl*) 40 Mg Tablet, 40 MG PO DAILY, #30 TAB 11/28/15 Atorvastatin* (Atorvastatin*) 40 Mg Tablet, 40 MG PO QHS, #30 TAB 07/24/15 Aspirin* (Aspirin* Chew) 81 Mg Tab.chew, 81 MG PO DAILY, TAB.CHEW 07/24/15 Chlorthalidone* (Chlorthalidone*) 25 Mg Tablet, 25 MG PO DAILY, TAB 07/24/15 Amlodipine Besylate* (Amlodipine Besylate*) 10 Mg Tablet, 10 MG PO DAILY, #30 TAB 07/24/15 Allergies Allergies: Coded Allergies: No Known Allergy (Unverified , 10/19/16) PMhx/Soc History of Surgery: Yes (5th toe amputation) Anesthesia Reaction: No Hx Neurological Disorder: No Hx Respiratory Disorders: No Hx Cardiac Disorders: Yes (HTN) Hx Psychiatric Problems: No Hx Miscellaneous Medical Probl: Yes (DM) Hx Alcohol Use: No Hx Substance Use: No Hx Tobacco Use: No Smoking Status: Never smoker FmHx Family History: diabetes Physical Exam Vitals Vital Signs Date Time Temp Pulse Resp B/P Pulse Ox O2 Delivery O2 Flow Rate FiO2 10/19/16 09:38 97.9 78 20 119/62 100 Room Air 10/19/16 08:16 98.3 81 20 114/59 100 Physical Exam Const: No acute distress Head: Atraumatic Eyes: Normal Conjunctiva ENT: Normal External Ears, Nose and Mouth. Neck: Full range of motion..~ No meningismus. Resp: Clear to auscultation bilaterally Cardio: Regular rate and rhythm, no murmurs Abd: Soft, non tender, non distended. Normal bowel sounds Skin: No petechiae or rashes Back: No midline or flank tenderness Ext: No cyanosis, or edema Neur: Awake and alert Psych: Normal Mood and Affect Results 24 hrs Current Medications Medications (Trade) Dose Ordered Sig/Lynn Route PRN Reason Start Time Stop Time Status Last Admin Dose Admin Ondansetron HCl (Zofran Odt) 4 mg ONCE STAT ODT 10/19/16 08:45 10/19/16 08:46 DC 10/19/16 09:01 Procedures/MDM EKG read by me: Rate/Rhythm: Regular rate and rhythm at a rate of 77 Intervals: Normal Impression: No evidence of ischemia or arrhythmia Patient is a 76-year-old male who presents with nausea, vomiting, and diarrhea. He is well-appearing and well-hydrated. This appears to be a viral syndrome. EKG shows no signs of ischemia. The patient was given Zofran. He has no abdominal pain and at this time I doubt appendicitis, cholecystitis, pancreatitis, or bowel obstruction. The patient will be discharged but will need to follow-up closely with his primary doctor within 24 hours for reevaluation. He can return for any worsening symptoms. Departure Diagnosis: Primary Impression: Nausea and vomiting Vomiting type: unspecified Vomiting Intractability: non-intractable Qualified Code: R11.2 - Non-intractable vomiting with nausea, unspecified vomiting type Condition: Fair Patient Instructions: Nausea and Vomiting-Adult Referrals: Your doctor Additional Instructions: Llame al doctor MAANA y aakash yosvany TAMIE PARA DENTRO DE 1-2 SHARMA.Dgale a la secretaria que nosotros le instruimos hacer esta tamie.Avise o llame si lynch condicin se empeora antes de la tamie. Regresa aqui si peor o no mejor. BLAIRE SANCHZE MD Oct 19, 2016 09:06
[2016-10-19 09:38] VITALS: BP 119/62; PULSE 78; RESP 20; TEMP 97.9
== END 2016-10-19 09:38 | disposition home or self-care (01) ==
LOC: E/R 08:13
DX: R11.2 Nausea with vomiting, unspecified (principal); E11.9 Type 2 diabetes mellitus without complications; I10 Essential (primary) hypertension; Z79.4 Long term (current) use of insulin; Z79.82 Long term (current) use of aspirin; Z79.84 Long term (current) use of oral hypoglycemic drugs
CPT/HCPCS: 93005

== ENCOUNTER 2016-10-20 11:05 | Inpatient (IN) | payer MEDICARE, MEDICAID ==
[~2016-10-20] VITALS: Ht 167.6 cm; Wt 65.6 kg
[~2016-10-20 11:05] MED LIST changes: +ONDA4TAB14 PO
--- NOTE | 2016-10-20 11:31 | ERD ---
ER Documentation Chief Complaint Date/Time DATE: 10/20/16 TIME: 11:30 Chief Complaint vomiting x 3 days, seen here yesterday (MOSES SAHU) HPI 76-year-old male who presented emergency department for nausea and vomiting for 3 days. Was seen here yesterday, EKG was done. Discharged with Zofran. Stated that he still nauseated with no vomiting. Denies headache, loss of consciousness, dizziness, blurry vision, changes in vision, photophobia, facial pain, ear pain, throat pain, difficulty swallowing, neck pain, shoulder pain, chest pain, cough, hemoptysis, abdominal pain, back pain, loss of appetite, hematochezia, diarrhea, constipation, urinary symptoms, bladder and bowel incontinences, extremity weakness, extremity tenderness, numbness or tingling sensation, difficulty walking, recent travel, recent exposure to illness, recent antibiotic use in the last 3 months, fever, chills. Allergy: No known drug allergies. PMH: Diabetes, hypertension, hyperlipidemia. Medications: Aspirin, benazepril, atorvastatin, chlorthalidone, amlodipine besylate. Surgery: Right fifth toe amputation. Family history: Denies. Primary Social History: Retired. Denies smoking, use of alcohol, use of illegal drugs. (MOSES SAHU) ROS All systems reviewed and are negative except as per history of present illness. (MOSES SAHU) Medications Home Meds Active Scripts Ondansetron (Ondansetron Odt) 4 Mg Tab.rapdis, 4 MG PO Q6H Y for NAUSEA AND/OR VOMITING, #10 TAB Prov:BLAIRE BATISTA MD 10/19/16 Daptomycin (Daptomycin) 500 Mg Vial, 360 MG IV DAILY for 42 Days, VIAL Prov:NURY WARE MD 07/03/16 Ceftriaxone Sod* (Rocephin* 1GM/50ML (PMX)) 1 Gm/50 Ml Iv.soln., 1 GM IVPB Q24H for 42 Days, EA Prov:NURY WARE MD 07/03/16 Ibuprofen* (Ibuprofen*) 600 Mg Tablet, 600 MG PO Q8 for PAIN AND/OR INFLAMMATION , #30 TAB Prov:NANDINI HOYT MD 05/25/16 Insulin Glargine* (Lantus*) 100 Unit/Ml Soln, 22 UNIT SC HS for 30 Days, 2 Refills Prov:STEFFANIE CHRISTY. 05/20/16 Insulin Aspart* (Novolog Insulin Pen*) 100 Unit/Ml Soln, 7 UNIT SC WITH MEALS for 30 Days, 1 Refill Prov:STEFFANIE CHRISTY. 05/20/16 Metoclopramide Hcl (Reglan) 5 Mg Tab, 5 MG PO Q8H for 14 Days, TAB Prov:STEFFANIE CHRISTY. 05/20/16 Glipizide* (Glipizide*) 5 Mg Tablet, 5 MG PO BID, #60 TAB Prov:STEFFANIE CHRISTY. 05/20/16 Collagenase* (Santyl*) 30 Gm Oint..gm., 1 APPLIC TOP DAILY, #30 G 1 Refill Prov:STEFFANIE CHRISTY 05/20/16 Reported Medications Benazepril Hcl* (Benazepril Hcl*) 40 Mg Tablet, 40 MG PO DAILY, #30 TAB 11/28/15 Atorvastatin* (Atorvastatin*) 40 Mg Tablet, 40 MG PO QHS, #30 TAB 07/24/15 Aspirin* (Aspirin* Chew) 81 Mg Tab.chew, 81 MG PO DAILY, TAB.CHEW 07/24/15 Chlorthalidone* (Chlorthalidone*) 25 Mg Tablet, 25 MG PO DAILY, TAB 07/24/15 Amlodipine Besylate* (Amlodipine Besylate*) 10 Mg Tablet, 10 MG PO DAILY, #30 TAB 07/24/15 Allergies Allergies: Coded Allergies: No Known Allergy (Unverified , 10/20/16) PMhx/Soc History of Surgery: Yes (5th toe amputation) Anesthesia Reaction: No Hx Neurological Disorder: No Hx Respiratory Disorders: No Hx Cardiac Disorders: Yes (HTN) Hx Psychiatric Problems: No Hx Miscellaneous Medical Probl: Yes (DM) Hx Alcohol Use: No Hx Substance Use: No Hx Tobacco Use: No Smoking Status: Never smoker (MOSES SAHU) Physical Exam Vitals Vital Signs Date Time Temp Pulse Resp B/P Pulse Ox O2 Delivery O2 Flow Rate FiO2 10/20/16 11:07 97.5 80 18 101/56 99 (PABLO CUI) Physical Exam CONSTITUTIONAL: Well-appearing; well-nourished; in no apparent distress. HEAD: Normocephalic; atraumatic. EYES: Conjunctiva clear, sclera non-icteric, EOM intact. PERRL Ears: Hearing intact. EACs clear, TMs non-bulging, non-inflamed, translucent & mobile, ossicles normal appearance, No obstructions, no erythema, no discharges Nose: No obstructions. No polyps. No external lesions. Mucosa non-inflamed. No external lesions, septum and turbinates normal. No rhinorrhea. No discharges. Frontal sinus is non-tender to palpation. Maxillary sinus is non-tender to palpation. MOUTH: Moist mucous membranes, no lesion, no obstructions, no vesicles, no thrush, patent airway Throat: Uvula in midline. Right tonsil is +1 with no erythema, no exudate. Left tonsil is +1 with no erythema, no exudate. Tolerating secretions well. Good gag reflex. Patent airway. Neck: Supple, without lesions, bruits, or adenopathy. No mass. Thyroid non- enlarged and non-tender to palpation. CHEST: Symmetrical chest. Respirations even and not labored. No retractions noted. CARDIOVASCULAR: Normal S1, S2. RRR. No murmurs, gallops. RESPIRATORY: Normal chest excursion with respiration; breath sounds clear and equal bilaterally; no wheezes, rhonchi, or rales. Breathing even and unlabored. Speaking in clear, full, and complete sentences w/ ease. ABDOMEN: Normal bowel sounds normal. Soft, round, non-distended, non-guarding, no tenderness, no rebound, no organomegaly, no masses, no pulsating abdominal mass. No hernia. No peritoneal signs. : No CVA tenderness. BACK: Symmetrical shoulder. Spine is midline without deformity, tenderness. No evidence of trauma or deformity. PELVIS: Stable pelvis. No evidence of trauma or deformity. MUSCULOSKELETAL: Normal gait and station. No misalignment, asymmetry, crepitation, defects, tenderness, masses, effusions, decreased range of motion, instability, atrophy or abnormal strength or tone in the head, neck, spine, ribs , pelvis or extremities. No calf tenderness. NEUROVASCULAR: Distal pulses are present. Pedal pulse are present, equal, and normal. Capillary refills are < 2 seconds. NEUROLOGIC: Alert and oriented x4. Speaks full and clear sentences. Cranial Nerves II-XII normal. Sensation to pain, touch, and proprioception normal. Grossly unremarkable. No neurologic deficits. Romberg test is negative. PSYCHOLOGICAL: The patients mood and manner are appropriate. No hallucinations , delusions. Not SI. Not HI. Has the capacity to decide for self SKIN: Normal for age and ethnicity; warm; dry; good turgor; no apparent lesions or exudates. No rashes, hives, discoloration. Intact. (MOSES SAHU) Result Diagram: 10/20/16 1150 10/20/16 1150 Results 24 hrs Laboratory Tests Test 10/20/16 11:50 10/20/16 11:52 White Blood Count 6.110^3/ul Red Blood Count 3.3910^6/ul Hemoglobin 10.0g/dl Hematocrit 29.7% Mean Corpuscular Volume 87.6fl Mean Corpuscular Hemoglobin 29.5pg Mean Corpuscular Hemoglobin Concent 33.7g/dl Red Cell Distribution Width 13.0% Platelet Count 23831^3/UL Mean Platelet Volume 9.5fl Neutrophils % 61.1% Lymphocytes % 30.4% Monocytes % 6.1% Eosinophils % 1.5% Basophils % 0.7% Nucleated Red Blood Cells % 0.0/100WBC Neutrophils # 3.710^3/ul Lymphocytes # 1.810^3/ul Monocytes # 0.410^3/ul Eosinophils # 0.110^3/ul Basophils # 0.010^3/ul Nucleated Red Blood Cells # 0.010^3/ul Prothrombin Time 13.4Sec Prothrombin Time Ratio 1.0 INR International Normalized Ratio 1.02 Activated Partial Thromboplast Time 35.2Sec Sodium Level 143mmol/L Potassium Level 5.3mmol/L Chloride Level 105mmol/L Carbon Dioxide Level 24mmol/L Anion Gap 19 Blood Urea Nitrogen 51mg/dl Creatinine 3.16mg/dl Glucose Level 188mg/dl Calcium Level 9.7mg/dl Total Bilirubin 0.4mg/dl Direct Bilirubin 0.00mg/dl Indirect Bilirubin 0.4mg/dl Aspartate Amino Transf (AST/SGOT) 23IU/L Alanine Aminotransferase (ALT/SGPT) 28IU/L Alkaline Phosphatase 56IU/L Troponin I < 0.012ng/ml Total Protein 6.1g/dl Albumin 5.2g/dl Globulin 0.90g/dl Albumin/Globulin Ratio 5.77 Amylase Level 69U/L Lipase 30U/L Urine Color LT. YELLOW Urine Clarity CLEAR Urine pH 5.5 Urine Specific Minter >=1.030 Urine Ketones NEGATIVE Urine Nitrite NEGATIVE Urine Bilirubin NEGATIVE Urine Urobilinogen 0.2 E.U./dL Urine Leukocyte Esterase NEGATIVE Urine Microscopic RBC 0-2/HPF Urine Microscopic WBC 0-2/HPF Urine Epithelial Cells FEW Urine Amorphous Urates FEW Urine Bacteria FEW Urine Coarse Granular Casts RARE Urine Mucus FEW Urine Hemoglobin NEGATIVE Urine Glucose NEGATIVE% Urine Total Protein 1+ Current Medications Medications (Trade) Dose Ordered Sig/Lynn Route PRN Reason Start Time Stop Time Status Last Admin Dose Admin Sodium Chloride (NS) 1,000 ml @ 1,000 mls/hr Q1H ONCE IV 10/20/16 14:00 10/20/16 14:59 Ondansetron HCl (Zofran Inj) 4 mg ONCE STAT IV 10/20/16 13:43 10/20/16 13:45 DC (PABLO CUI) Procedures/MDM Examination: Please see physical examination. Disease process, medical treatment was explained to the patient and family member. They verbalized understanding and agreed with the diagnostic tests, medical treatment, and follow-up care. EKG: Normal sinus rhythm with a ventricular rate of 70 bpm. No evidence of acute myocardial infarction. No evidence of ischemia. Blood works: Reviewed. Urinalysis: Reviewed. Treatment: IV insertion. Normal saline IV bolus. Zofran IV. Consultation: Case was discussed with attending physician, Dr. Pablo Cui who agreed in my medical decision making. Differential diagnosis: Acute myocardial infarction versus acute coronary syndrome versus acute cholecystitis versus pancreatitis versus appendicitis versus fatty liver versus nephrolithiasis versus acute gastroenteritis versus gastritis versus GERD Medical decision makin-year-old male who presented emergency department for nausea and vomiting for 3 days. Was seen here yesterday, EKG was done. Discharged with Zofran. Stated that he still nauseated with no vomiting. Patient's complaint, patient history about his complaint, my physical findings, diagnostic test results, my reevaluation are consistent with a final diagnosis of acute renal failure. This case was endorsed to attending physician, Dr. Blaire Batista, who agreed to continue care and processed admission. (MOSES SAHU MD oversight note: Patient was seen independently. Pt with new onset renal failure. Pt will be hydrated and admitted for further evaluation and care. (PABLO CUI) Departure Diagnosis: Primary Impression: Acute renal failure Condition: Stable MOSES SAHU Oct 20, 2016 11:31 PABLO CUI Oct 20, 2016 13:49 Eosinophils # 0.110^3/ul Basophils # 0.010^3/ul Nucleated Red Blood Cells # 0.010^3/ul Prothrombin Time 13.4Sec Prothrombin Time Ratio 1.0 INR International Normalized Ratio 1.02 Activated Partial Thromboplast Time 35.2Sec Sodium Level 143mmol/L Potassium Level 5.3mmol/L Chloride Level 105mmol/L Carbon Dioxide Level 24mmol/L Anion Gap 19 Blood Urea Nitrogen 51mg/dl Creatinine 3.16mg/dl Glucose Level 188mg/dl Calcium Level 9.7mg/dl Total Bilirubin 0.4mg/dl Direct Bilirubin 0.00mg/dl Indirect Bilirubin 0.4mg/dl Aspartate Amino Transf (AST/SGOT) 23IU/L Alanine Aminotransferase (ALT/SGPT) 28IU/L Alkaline Phosphatase 56IU/L Troponin I < 0.012ng/ml Total Protein 6.1g/dl Albumin 5.2g/dl Globulin 0.90g/dl Albumin/Globulin Ratio 5.77 Amylase Level 69U/L Lipase 30U/L Urine Color LT. YELLOW Urine Clarity CLEAR Urine pH 5.5 Urine Specific Minter >=1.030 Urine Ketones NEGATIVE Urine Nitrite NEGATIVE Urine Bilirubin NEGATIVE Urine Urobilinogen 0.2 E.U./dL Urine Leukocyte Esterase NEGATIVE Urine Microscopic RBC 0-2/HPF Urine Microscopic WBC 0-2/HPF Urine Epithelial Cells FEW Urine Amorphous Urates FEW Urine Bacteria FEW Urine Coarse Granular Casts RARE Urine Mucus FEW Urine Hemoglobin NEGATIVE Urine Glucose NEGATIVE% Urine Total Protein 1+ Current Medications Medications (Trade) Dose Ordered Sig/Lynn Route PRN Reason Start Time Stop Time Status Last Admin Dose Admin Sodium Chloride (NS) 1,000 ml @ 1,000 mls/hr Q1H ONCE IV 10/20/16 14:00 10/20/16 14:59 DC 10/20/16 14:03 Ondansetron HCl (Zofran Inj) 4 mg ONCE STAT IV 10/20/16 13:43 10/20/16 13:45 DC 10/20/16 14:03 Ondansetron HCl (Zofran Inj) 4 mg BRIDGE ORDER PRN IV NAUSEA AND/OR VOMITING 10/20/16 15:30 10/21/16 15:29 Acetaminophen (Tylenol Tab) 650 mg ER BRIDGE PRN PO MILD PAIN/FEVER 10/20/16 15:30 10/21/16 15:29 (MOSES SAHU) Procedures/MDM Examination: Please see physical examination. Disease process, medical treatment was explained to the patient and family member. They verbalized understanding and agreed with the diagnostic tests, medical treatment, and follow-up care. EKG: Normal sinus rhythm with a ventricular rate of 70 bpm. No evidence of acute myocardial infarction. No evidence of ischemia. Blood works: Reviewed. Urinalysis: Reviewed. Treatment: IV insertion. Normal saline IV bolus. Zofran IV. Re-evaluation: Consultation: Case was discussed with attending physician, Dr. Pablo Cui who agreed in my medical decision making. Differential diagnosis: Acute myocardial infarction versus acute coronary syndrome versus acute cholecystitis versus pancreatitis versus appendicitis versus fatty liver versus nephrolithiasis versus acute gastroenteritis versus gastritis versus GERD Medical decision makin-year-old male who presented emergency department for nausea and vomiting for 3 days. Was seen here yesterday, EKG was done. Discharged with Zofran. Stated that he still nauseated with no vomiting. Patient's complaint, patient history about his complaint, my physical findings, diagnostic test results, my reevaluation are consistent with a final diagnosis of acute renal failure. (MOSES SAHU) MD oversight note: Patient was seen independently. Pt with new onset renal failure. Pt will be hydrated and admitted for further evaluation and care. (PABLO CUI) MOSES SAHU Oct 20, 2016 11:31 PABLO CUI Oct 20, 2016 13:49
[2016-10-20 12:22] LABS: ADD SCAN DIFF NO
[2016-10-20 12:28] LABS: BASOPHILS % 0.7 % (0.0-2.0); EOSINOPHILS # 0.1 10^3/ul (0.0-0.5); EOSINOPHILS % 1.5 % (0.0-7.0); HEMATOCRIT 29.7 % (42.0-52.0); LYMPHOCYTES # 1.8 10^3/ul (0.8-2.9); LYMPHOCYTES % 30.4 % (15.0-51.0); MEAN CORPUSCULAR HEMOGLOBIN 29.5 pg (29.0-33.0); MEAN CORPUSCULAR HGB CONC 33.7 g/dl (32.0-37.0); MEAN CORPUSCULAR VOLUME 87.6 fl (82.0-101.0); MEAN PLATELET VOLUME 9.5 fl (7.4-10.4); MONOCYTE # 0.4 10^3/ul (0.3-0.9); MONOCYTES % 6.1 % (0.0-11.0); NEUTROPHIL # 3.7 10^3/ul (1.6-7.5); NEUTROPHILS % 61.1 % (39.0-77.0); PLATELET COUNT 217 10^3/UL (140-415); RED BLOOD COUNT 3.39 10^6/ul (4.70-6.10); WHITE BLOOD COUNT 6.1 10^3/ul (4.8-10.8)
[2016-10-20 12:42] LABS: INR 1.02; PARTIAL THROMBOPLASTIN TIME 35.2 Sec (25.0-35.0); PROTIME 13.4 Sec (12.2-14.2)
[2016-10-20 12:47] LABS: ALANINE AMINOTRANSFERASE 28 IU/L (13-69); ALBUMIN 5.2 g/dl (3.3-4.9); ALBUMIN/GLOBULIN RATIO 5.77; ALKALINE PHOSPHATASE 56 IU/L (42-121); AMYLASE 69 U/L (11-123); ANION GAP 19 (8-16); ASPARTATE AMINO TRANSFERASE 23 IU/L (15-46); BILIRUBIN,INDIRECT 0.4 mg/dl (0-1.1); BILIRUBIN,TOTAL 0.4 mg/dl (0.2-1.3); BLOOD UREA NITROGEN 51 mg/dl (7-20); CALCIUM 9.7 mg/dl (8.4-10.2); CARBON DIOXIDE 24 mmol/L (21-31); CHLORIDE 105 mmol/L (97-110); CREATININE 3.16 mg/dl (0.61-1.24); GLUCOSE 188 mg/dl (70-220); POTASSIUM 5.3 mmol/L (3.5-5.1); SODIUM 143 mmol/L (135-144); TOTAL PROTEIN 6.1 g/dl (6.1-8.1)
[2016-10-20 13:02] LABS: TROPONIN-I < 0.012 ng/ml (0.00-0.12)
[2016-10-20 13:02] LABS: ADD UMIC YES; UR BILIRUBIN (Dip) NEGATIVE (NEGATIVE); UR BLOOD (Dip) NEGATIVE (NEGATIVE); UR CLARITY CLEAR (CLEAR); UR COLOR LT. YELLOW (YELLOW); UR GLUCOSE (Dip) NEGATIVE (NEGATIVE); UR KETONES (Dip) NEGATIVE (NEGATIVE); UR LEUKOCYTE ESTERASE (Dip) NEGATIVE (NEGATIVE); UR NITRITE (Dip) NEGATIVE (NEGATIVE); UR TOTAL PROTEIN (Dip) 1+ (NEGATIVE); UR UROBILINOGEN (Dip) 0.2 E.U./dL (0.1-1.0)
[2016-10-20 13:16] LABS: UR BACTERIA FEW; UR MUCUS FEW; URINE RBCS 0-2 /HPF (0)
[2016-10-20] MEDS ORDERED: ONDANSETRON 4 MG INJ IV STA (13:43)
[2016-10-20] MEDS ORDERED: SOD CHLORIDE 0.9% 1,000 ML IV ONE (14:00)
--- NOTE | 2016-10-20 15:20 | QN ---
Documentation Comment My independent concise history is nausea and vomiting. My pertinent physical exam findings are normal physical exam. The plan is admission for acute renal failure as the patient's creatinine has increased from 1 to 3.16. I spoke with Dr. Rhoades from the panel team for admission.. BLAIRE SANCHEZ MD Oct 20, 2016 15:20
[2016-10-20] MEDS ORDERED: ACETAMINOPHEN 325 MG TAB PO PRN ×2 (15:30→17:00)
[2016-10-20] MEDS ORDERED: ONDANSETRON 4 MG INJ IV PRN ×2 (15:30→17:00)
[2016-10-20] MEDS ORDERED: NACL 0.9% 3 ML SYG IV SCH (17:00)
[2016-10-20] MEDS ORDERED: morphine 2 MG INJ IV PRN (17:00)
[2016-10-20] MEDS ORDERED: MAGNESIUM HYDROXIDE 30ML CUP PO PRN (17:00)
[2016-10-20] MEDS ORDERED: Discontinue Glyburide, Glipizide, and/or Glimepiride prior to starting Insulin XX ONE (17:00)
[2016-10-20] MEDS ORDERED: HYDROCODONE/APAP (5/325) TAB PO PRN (17:00)
[2016-10-20] MEDS ORDERED: HYPOGLYCEMIA PROTOCOL when Glucose is <70 mg/dL or symptomatic <90 mg/dL. XX ONE (17:00)
[2016-10-20] MEDS: SOD CHLORIDE 0.9% 1,000 ML IV SCH (17:13)
[2016-10-20] MEDS ORDERED: GLUCOSE GEL 15 GRAM TUBE BUCCAL PRN (17:30)
[2016-10-20] MEDS ORDERED: GLUCAGON 1 MG INJ IM PRN (17:30)
[2016-10-20] MEDS ORDERED: hydrALAzine 20 MG INJ IV PRN (17:30)
[2016-10-20] MEDS ORDERED: DEXTROSE 50% 50 ML SYRINGE IV PRN ×2 (17:30)
[2016-10-20] MEDS ORDERED: GLUCOSE GEL 15 GRAM TUBE PO PRN ×2 (17:30)
[2016-10-20] MEDS: INSULIN ASPART [NOVOLOG] 3 ML PEN SC SCH ×3 (18:00→21:00)
[2016-10-20] MEDS: METOCLOPRAMIDE 10 MG INJ IV SCH ×2 (18:30→23:09)
[2016-10-20 18:31] VITALS: TEMP 97.6
--- NOTE | 2016-10-20 18:57 | HP ---
DATE OF ADMISSION: 10/20/2016 TIME OF EVALUATION: 1500 hours. REASON FOR ADMISSION: Intractable vomiting, worsening renal function. CONSULTATIONS: Dr. Saurav Mosley, Nephrology. HISTORY OF PRESENT ILLNESS: This is a 76-year-old male with multiple past medical history including type 2 diabetes mellitus, diabetic neuropathy, peripheral vascular disease, essential hypertension, dyslipidemia and a diabetic foot ulcer who came to the emergency room with chief complaint of persistent nausea and vomiting that has been going on for the past 3 weeks. The patient was seen in the emergency room on 10/19/2016, and the patient was discharged home. The patient returns back to the emergency room on 10/20/2006 with similar complaints. The patient verbalized vomiting is nonbloody, nonbilious. He was also complaining of multiple episodes of diarrhea. He denied any abdominal pain. Denied any fevers or chills. The patient denied any headaches. He denied any recent travels or eating anything unusual. He denied any chest pain. In the emergency room, the patient was noticed to have hyperkalemia with potassium of 5.3. The BMP showed a BUN and creatinine of 51 and 3.16 respectively. The patient had a normal creatinine during the beginning of this year after inpatient hospitalization. PAST MEDICAL HISTORY: Type 2 diabetes mellitus, right foot diabetic ulcer, diabetic neuropathy, peripheral vascular disease, dyslipidemia, essential hypertension. PAST SURGICAL HISTORY: Right foot fifth ray amputation. HOME MEDICATIONS: 1. Amlodipine 10 mg p.o. daily. 2. Atorvastatin 40 mg p.o. at bedtime. 3. Benazepril 40 mg p.o. daily. 4. Aspirin 81 mg p.o. daily. 5. Ibuprofen 600 mg p.o. q. 8 hours p.r.n. pain. 6. Chlorthalidone 25 mg p.o. daily. 5. Glipizide 5 mg p.o. b.i.d. 6. Insulin aspart 7 units subcutaneously with meals. 7. Lantus insulin 22 units subcutaneously at bedtime. ALLERGIES: NO KNOWN DRUG ALLERGIES. SOCIAL HISTORY: The patient lives at home with his family. The patient is retired. Denies any history of tobacco, alcohol or illicit drug use. REVIEW OF SYSTEMS: A 12-point review of systems negative other than what is mentioned in history of present illness. PHYSICAL EXAMINATION: VITAL SIGNS: Temperature 98.0, pulse is 76, respiratory rate 20, blood pressure 136/60, oxygen saturation 100% on room air. GENERAL: This is a 76-year-old gentleman lying in bed in no apparent distress. HEENT: Head normocephalic and atraumatic. Eyes: Anicteric sclerae. Conjunctivae clear. ENT: Nasal septum is midline. Oral mucosa is dry. Poor dentition. NECK: Supple. No JVD noticed. RESPIRATORY: Bilateral diminished breath sounds. No adventitious breath sounds heard. No use of accessory muscles of respiration. CARDIAC: Regular rate and rhythm. S1, S2 heard. ABDOMEN: Soft, nontender and nondistended. Bowel sounds positive in all 4 quadrants. GENITOURINARY: Deferred. EXTREMITIES: No cyanosis, no clubbing. Status post right fifth toe amputation. Pedal pulses are diminished bilaterally. NEUROLOGIC: The patient is awake, alert and oriented. Cranial nerves are grossly intact. LABORATORY AND DIAGNOSTIC DATA: WBC 6.1, hemoglobin 10.0, hematocrit 29.7, platelet count 217. Sodium 143, potassium 5.3, chloride 105, carbon dioxide 25 , anion gap 19, BUN 51, creatinine 3.16, glucose 180, calcium 9.7, AST 23, ALT 20, alkaline phosphatase 56, troponin less than 0.012. PT 13.4, PTT 35.2. Urinalysis: Urine nitrite, negative leukocyte esterase negative, urine total protein 1+. IMPRESSION: This is a 76-year-old male with multiple comorbidities who came to the emergency room with chief complaint of nausea and vomiting for the past few days, who was found to have evidence of acute kidney injury and will be admitted here for further treatment and evaluation. ASSESSMENT AND PLAN: 1. Acute kidney injury. Etiology unclear. This could be from dehydration from frequent nausea, vomiting and poor oral intake. In addition, the patient was noticed to be taking EDIS inhibitors, chlorthalidone as well as ibuprofen. This could also be contributing to the patient's worsening renal function. The patient will be taken off all his EDIS inhibitors and chlorthalidone. Will avoid any other nephrotoxic medications. We will hydrate the patient adequately. We will involve nephrology on the case. 2. Persistent nausea and vomiting. Etiology unclear. Possible diabetic gastroparesis. The patient will be started on prokinetics. The patient will be provided with antiemetic medications. The patient will be adequately hydrated. Stool studies will be obtained. 3. Essential hypertension. The patient will be resumed on his home antihypertensives except EDIS inhibitors and Chlorthalidone The patient will be started on p.r.n. antihypertensives for any systolic blood pressure readings greater than 160 mmHg. 4. Type 2 diabetes mellitus. The patient will be started on sliding scale insulin along with premeal insulin and basal insulin. A hemoglobin A1c will be obtained to evaluate the blood glucose control over the past few weeks. 5. Dyslipidemia. The patient will be resumed statins. Fasting lipid panel will be obtained. Plan. The patient will be admitted to inpatient medical/surgical floor. The patient will be started on deep vein thrombosis prophylaxis and gastrointestinal prophylaxis. The patient will remain a FULL CODE. Activity will be as tolerated. The rest of the patient's management will be based on the clinical course, the results of diagnostic studies and input from consultants. Based on the patient's clinical presentation, he most probably requires at least 2 midnights' stay for further management and evaluation of his clinical presentation. The case and management of this patient was fully discussed with Dr. Christy. ALISA CHRISTY MD, AM/AYDEN Conf#: [id number] DID#: [id number] ROSE
[2016-10-20 19:06] VITALS: BP 150/72; PULSE 91; RESP 18
[2016-10-20 19:30] VITALS: Ht 167.6 cm; Wt 65.6 kg
[2016-10-20] MEDS ORDERED: INSULIN GLARGINE [LANtus] 3 ML PEN SC SCH (20:00)
[2016-10-20 22:03] LABS: CALCIUM 9.5 mg/dl (8.4-10.2); CREATININE 2.3 mg/dl (0.61-1.24); POTASSIUM 4.4 mmol/L (3.5-5.1)
[2016-10-20] MEDS: HEPARIN 5,000 UNIT/0.5 ML VIAL SC SCH (22:50)
[2016-10-20] MEDS: FAMOTIDINE 20 MG INJ IV SCH (22:50)
[2016-10-20] MEDS: ATORVASTATIN 40 MG TAB PO SCH (22:50)
--- NOTE | 2016-10-20 22:51 | CONS ---
DATE OF ADMISSION: 10/20/2016 DATE OF CONSULTATION: 10/20/2016 NEPHROLOGY CONSULTATION REFERRING PHYSICIAN: Marsha Rhoades MD REASON FOR CONSULTATION: Acute renal failure on possibel CKD II/III HISTORY OF PRESENT ILLNESS: This is a 76-year-old male with a past medical history of type 2 diabetes mellitus, complicated by diabetic nephropathy and possible chronic kidney disease secondary to diabetic nephropathy, peripheral vascular disease, hypertension, hyperlipidemia, diabetic foot ulcer who came to the emergency room/urgent care with a complaint of persistent nausea and vomiting that has been going on for the past 3 weeks. The patient was seen in the emergency room on 10/19/2016, and at time he was discharged home. He returned back to the emergency room again today with similar complaints. His vomiting was nonbloody, nonbilious, associated with some diarrhea. Patient is noted to have acute renal failure with a potassium of 5.3, and a creatinine of 3.16. The patient's creatinine was normal in the beginning of 2016, after his inpatient hospitalization. He was discharged with a normal creatinine at that time. REVIEW OF SYSTEMS: Positive for nausea, vomiting, abdominal, decreased p.o. intake and diarrhea. Other review of systems has been obtained and is negative except what is mentioned in history of present illness. PAST MEDICAL HISTORY: Type 2 diabetes mellitus, right foot diabetic ulcer, diabetic neuropathy, peripheral vascular disease, dyslipidemia, essential hypertension. PAST SURGICAL HISTORY: Right foot fifth ray amputation. HOME MEDICATIONS: Include amlodipine, nitroglycerin, Benazepril, aspirin, ibuprofen, chlorthalidone, glipizide, insulin, Lantus. ALLERGIES: NO KNOWN DRUG ALLERGIES. SOCIAL HISTORY: The patient lives with family at home. He is retired. He denies any smoking, alcohol or recreational drug use. PHYSICAL EXAMINATION: VITAL SIGNS: Temperature 97.4, heart rate 91, respiration 18, blood pressure 150/72, saturation 94% to 100% on room air. GENERAL: Awake, alert, in no acute distress. HEENT: Normal. Oropharynx clear. NECK: Supple, no JVD, no lymphadenopathy. LUNGS: Clear to auscultation. No crackles, no wheezes. HEART: S1, S2, with regular rhythm, no murmur. ABDOMEN: Soft, nontender, nondistended. Bowel sounds are present. EXTREMITIES: No clubbing or cyanosis. The patient has a mild to 1+ pitting edema. LABORATORY DATA/DIAGNOSTIC IMAGIN. Sodium 143, potassium 5.3, chloride 105, bicarbonate 24, BUN 51, creatinine 3.1, glucose 188, calcium 9.1. Please note that the patient's creatinine on last discharge in June 2016, was 1.04. WBC 6.1, hemoglobin 10.9, MCV 87, platelet count 217. Prothrombin time 13.4, PTT 35.1, INR 1.02. 2. Urinalysis shows 1+ total protein. 3. Hepatitis C was checked last year, which was negative. IMPRESSION: This is a 76-year-old male who is getting admitted with: 1. Acute kidney injury with hyperkalemia versus possible acute kidney injury on chronic kidney disease, low proteinuric stage II secondary to diabetic nephropathy.also due to Nephrotoxicity from multiple medications 2. History of possible chronic kidney disease stage II secondary to diabetic nephropathy. 3. Acute hyperkalemia secondary to acute kidney injury on chronic kidney disease. 4. Anemia of chronic renal disease. 5. Hypertension. 6. Type 2 diabetes mellitus. 7. History of type 2 diabetes mellitus complicated by diabetic neuropathy and diabetic nephropathy. PLAN: Thank you, Dr. Rhoades, for this consultation. The patient previously had a normal creatinine of 1.021, last discharge. 1. I will order at this point some urine studies including a urine sodium, urine protein creatinine ratio, urine eosinophils, uric acid and CK total with the a.m. labs. 2. Stop the patient's home medications of benazepril, ibuprofen and chlorthalidone due to acute renal failure and hyperkalemia. Also, consider stopping the glipizide, and only follow the sliding scale for his diabetes mellitus management.Endocrine has been consulted on the case 3. The patient is currently seen on the med/surg floor. His other labs for CKD , including vitamin 25 hydroxy, vitamin D, and also PTH has been ordered with a.m. labs. 4. I will order the patient's renal ultrasounds to assess for kidney size and to rule out hydronephrosis, if it has not been done in the last one year. The patient is currently seen on the med/surg floor, and he will be followed up along with the primary care service. Once again, thank you for this consultation. I will continue to follow this patient with you. Total time spent in this patient's evaluation, making assessment and plan, and communicating with the patient and the nursing staff on the floor, took more than 60 minutes. Dictated By: NAVI BERNARDO MD, KP/AYDEN Conf#: [id number] DID#: [id number] MTDD
[2016-10-20] MEDS ORDERED: INSULIN GLARGINE [LANtus] 3 ML PEN SC ONE (23:00)
[2016-10-20] MEDS ORDERED: DEXTROSE 50% 50 ML SYRINGE IV ONE (23:00)
[2016-10-20 23:39] LABS: PROTEIN/CREAT RATIO 0.46 RATIO
[2016-10-21] MEDS: ACCUCHECK AT 2AM (Patients on SS coverage) XX SCH (02:00)
[2016-10-21] MEDS: METOCLOPRAMIDE 10 MG INJ IV SCH ×3 (05:12→17:39)
[2016-10-21] MEDS: SOD CHLORIDE 0.9% 1,000 ML IV SCH ×3 (05:12→22:41)
[2016-10-21 06:04] LABS: ADD SCAN DIFF NO
[2016-10-21 06:21] LABS: BASOPHILS % 0.6 % (0.0-2.0); EOSINOPHILS # 0.2 10^3/ul (0.0-0.5); EOSINOPHILS % 3.1 % (0.0-7.0); HEMATOCRIT 28.5 % (42.0-52.0); HEMOGLOBIN 9.6 g/dl (14.0-18.0); LYMPHOCYTES # 1.5 10^3/ul (0.8-2.9); MEAN CORPUSCULAR HEMOGLOBIN 29.4 pg (29.0-33.0); MEAN CORPUSCULAR HGB CONC 33.7 g/dl (32.0-37.0); MEAN CORPUSCULAR VOLUME 87.2 fl (82.0-101.0); MEAN PLATELET VOLUME 9.8 fl (7.4-10.4); MONOCYTE # 0.4 10^3/ul (0.3-0.9); MONOCYTES % 8.4 % (0.0-11.0); NEUTROPHIL # 2.8 10^3/ul (1.6-7.5); NEUTROPHILS % 56.5 % (39.0-77.0); PLATELET COUNT 205 10^3/UL (140-415); RED BLOOD COUNT 3.27 10^6/ul (4.70-6.10); RED CELL DISTRIBUTION WIDTH 12.8 % (11.5-14.5); WHITE BLOOD COUNT 4.9 10^3/ul (4.8-10.8)
[2016-10-21 06:46] LABS: URIC ACID 9.7 mg/dl (3.1-7.9)
[2016-10-21 06:59] LABS: ALBUMIN 4.7 g/dl (3.3-4.9); ALBUMIN/GLOBULIN RATIO 1.74; BILIRUBIN,INDIRECT 0.3 mg/dl (0-1.1); BILIRUBIN,TOTAL 0.3 mg/dl (0.2-1.3); CALCIUM 9.3 mg/dl (8.4-10.2); CREATININE 1.99 mg/dl (0.61-1.24); POTASSIUM 4.5 mmol/L (3.5-5.1); TOTAL PROTEIN 7.4 g/dl (6.1-8.1)
[2016-10-21 07:01] LABS: CHOL/HDL RATIO 2.6 RATIO; MAGNESIUM 1.9 mg/dl (1.7-2.5); PHOSPHORUS 4.6 mg/dl (2.5-4.9)
[2016-10-21] MEDS: INSULIN ASPART [NOVOLOG] 3 ML PEN SC SCH ×7 (08:00→21:00)
[2016-10-21 08:30] VITALS: BP 156/74; RESP 18
[2016-10-21] MEDS: HEPARIN 5,000 UNIT/0.5 ML VIAL SC SCH ×2 (08:43→22:30)
[2016-10-21] MEDS: ASPIRIN 81 MG TAB PO SCH (08:43)
[2016-10-21] MEDS ORDERED: AMLODIPINE 10 MG TAB PO SCH (09:00)
[2016-10-21 09:56] LABS: THYROID STIMULATING HORMONE 1.85 MIU/L (0.465-4.680)
--- NOTE | 2016-10-21 12:18 | PN ---
Date/Time of Note Date/Time of Note DATE: 10/21/16 TIME: 12:14 Assessment/Plan VTE Prophylaxis VTE Prophylaxis Intervention: anti-embolic stocking Lines/Catheters IV [facility] Peripheral IV Assessment/Plan Problems: (1) Diabetes mellitus type 2 in nonobese Status: Chronic Comment: Presently he is on insulin. My colleagues have recommended against use of glipizide which in his age group with his variable renal function is in my opinion the appropriate maneuver. He could use a DPP 4 drug in combination with insulin or other medications. (2) Hyperlipidemia Status: Chronic Comment: Continue statin therapy please Qualifiers: Hyperlipidemia type: pure hypercholesterolemia Qualified Code: E78.00 - Pure hypercholesterolemia (3) Essential hypertension Status: Chronic Comment: The EDIS inhibitor is actually critical for protecting his renal function. His renal dysfunction was due to dehydration due to the gastroenteritis viral syndrome he had. As this is recovering it is time to review resume the EDIS inhibitor. Please note that the chlorthalidone in the setting is not an ideal choice and should not be used (4) Acute renal failure Status: Acute Comment: This is clearing up nicely. The dihydropyridine calcium channel audi is not as renal protective as the EDIS inhibitor (5) Nausea and vomiting Status: Acute Comment: This is settled down and he is taking p.o. without complications. Believe this was a virally induced issue. He is on the Reglan temporarily. (6) Dehydration Status: Acute Comment: This is clearing up nicely going to give him another fluid bolus (7) Diabetes, polyneuropathy Status: Chronic Comment: Noted continue treatment. Especially trying get better control. Qualifiers: Diabetes mellitus type: type 2 Qualified Code: E11.42 - Diabetic polyneuropathy associated with type 2 diabetes mellitus Subjective 24 Hr Interval Summary Free Text/Dictation Patient reports he is feeling much better. His diffuse myalgias and arthralgias have improved in the hospital. Constitutional: no complaints (No fevers chills or sweats) Respiratory: no complaints (Shortness of breath no cough no wheezing) Cardiovascular: no complaints Gastrointestinal: constipation Genitourinary: no complaints Musculoskeletal: bone/joint pain Exam/Review of Systems Vital Signs Vitals Vital Signs Date Time Temp Pulse Resp B/P Pulse Ox O2 Delivery O2 Flow Rate FiO2 10/21/16 08:30 98.4 74 18 156/74 98 10/20/16 18:31 Room Air Intake and Output 10/20/16 10/20/16 10/21/16 15:00 23:00 07:00 Intake Total 1440 ml Output Total 600 ml Balance 840 ml Exam Constitutional: alert, oriented Neck: non-tender, supple Respiratory: clear to auscultation, normal air movement Cardiovascular: nl pulses, regular rate and rhythm Results Result Diagram: 10/21/16 0509 10/21/16 0509 Results 24 hrs Laboratory Tests Test 10/20/16 18:28 10/20/16 21:35 10/20/16 22:34 10/20/16 22:40 Bedside Glucose 129 75 Sodium Level 146 H Potassium Level 4.4 Chloride Level 108 Carbon Dioxide Level 24 Anion Gap 18 H Blood Urea Nitrogen 48 H Creatinine 2.30 H Glucose Level 100 # Calcium Level 9.5 Urine Eosinophils % 0.0 Urine Random Creatinine 47.63 Urine Random Sodium 131 H Urine Protein/Creatinine Ratio 0.46 Urine Total Protein 22.0 H Test 10/21/16 05:09 10/21/16 08:12 10/21/16 08:34 10/21/16 08:51 White Blood Count 4.9 Red Blood Count 3.27 L Hemoglobin 9.6 L Hematocrit 28.5 L Mean Corpuscular Volume 87.2 Mean Corpuscular Hemoglobin 29.4 Mean Corpuscular Hemoglobin Concent 33.7 Red Cell Distribution Width 12.8 Platelet Count 205 Mean Platelet Volume 9.8 Neutrophils % 56.5 Lymphocytes % 31.0 Monocytes % 8.4 Eosinophils % 3.1 Basophils % 0.6 Nucleated Red Blood Cells % 0.0 Neutrophils # 2.8 Lymphocytes # 1.5 Monocytes # 0.4 Eosinophils # 0.2 Basophils # 0.0 Nucleated Red Blood Cells # 0.0 Sodium Level 142 Potassium Level 4.5 Chloride Level 106 Carbon Dioxide Level 27 Anion Gap 14 Blood Urea Nitrogen 41 H Creatinine 1.99 H Glucose Level 86 Hemoglobin A1c 10.5 H Uric Acid 9.7 H Calcium Level 9.3 Phosphorus Level 4.6 Magnesium Level 1.9 Total Bilirubin 0.3 Direct Bilirubin 0.00 Indirect Bilirubin 0.3 Aspartate Amino Transf (AST/SGOT) 18 Alanine Aminotransferase (ALT/SGPT) 24 Alkaline Phosphatase 51 Creatine Kinase 108 Total Protein 7.4 # Albumin 4.7 Globulin 2.70 Albumin/Globulin Ratio 1.74 Triglycerides Level 77 Cholesterol Level 101 LDL Cholesterol, Calculated 48 HDL Cholesterol 38 Cholesterol/HDL Ratio 2.6 Thyroid Stimulating Hormone (TSH) 1.850 Free Thyroxine 1.22 Parathyroid Hormone (Intact) Bedside Glucose 65 L 95 139 Test 10/21/16 12:02 Bedside Glucose 134 Medications Medications Current Medications Sodium Chloride (NS) 1,000 ml @ 100 mls/hr Q10H IV Last administered on 05:12; Admin Dose 100 MLS/HR; Start 10/20/16 at 16:44 Ondansetron HCl (Zofran Inj) 4 mg Q6H PRN IV NAUSEA AND/OR VOMITING; Start at 17:00 Acetaminophen (Tylenol Tab) 650 mg Q6H PRN PO PAIN LEVEL 1-3 OR FEVER; Start at 17:00 Acetaminophen/ Hydrocodone Bitart ([place] (5/325)) 1 tab Q6H PRN PO MODERATE PAIN LEVEL 4-6; Start 10/20/16 at 17:00 Morphine Sulfate (morphine) 2 mg Q4H PRN IV SEVERE PAIN LEVEL 7-10; Start 10/20 at 17:00 Magnesium Hydroxide (Milk Of Mag) 30 ml DAILY PRN PO CONSTIPATION; Start at 17:00 Famotidine (Pepcid Iv) 20 mg Q24H IV Last administered on 10/20/16 22:50; Admin Dose 20 MG; Start 10/20/16 at 21:00 Heparin Sodium (Porcine) (Heparin (5000 Units/0.5 ml)) 5,000 unit Q12 SC Last administered on 10/21/16 08:43; Admin Dose 5,000 UNIT; Start 10/20/16 at 21:00 Amlodipine Besylate (Norvasc) 10 mg DAILY PO Last administered on 10/21/16 08: 42; Admin Dose 10 MG; Start 10/21/16 at 09:00 Aspirin (Aspirin) 81 mg DAILY PO Last administered on 10/21/16 08:43; Admin Dose 81 MG; Start 10/21/16 at 09:00 Atorvastatin Calcium (Lipitor) 40 mg QHS PO Last administered on 10/20/16 22: 50; Admin Dose 40 MG; Start 10/20/16 at 21:00 Insulin Glargine (Lantus) 22 unit DAILY@20 SC ; Start 10/20/16 at 20:00 Metoclopramide HCl (Reglan) 5 mg Q6 IV Last administered on 10/21/16t 12:08; Admin Dose 5 MG; Start 10/20/16 at 18:00 Hydralazine HCl (Apresoline) 10 mg Q6H PRN IV SBP>160; Start 10/20/16 at 17:30 Miscellaneous Information 1 ea NOTE XX ; Start 10/20/16 at 17:30 Glucose (Glutose) 15 gm Q15M PRN PO DECREASED GLUCOSE; Start 10/20/16 at 17:30 Glucose (Glutose) 22.5 gm Q15M PRN PO DECREASED GLUCOSE; Start 10/20/16 at 17: 30 Dextrose (D50w Syringe) 25 ml Q15M PRN IV DECREASED GLUCOSE; Start 10/20/16 at 17:30 Dextrose (D50w Syringe) 50 ml Q15M PRN IV DECREASED GLUCOSE; Start 10/20/16 at 17:30 Glucagon (Glucagen) 1 mg Q15M PRN IM DECREASED GLUCOSE; Start 10/20/16 at 17:30 Glucose (Glutose) 15 gm Q15M PRN BUCCAL DECREASED GLUCOSE; Start 10/20/16 at 17 :30 Diagnostic Test (Pha) (Accu-Chek) 1 ea 02 XX ; Start 10/21/16 at 02:00 MELYSSA QUINONES MD Oct 21, 2016 12:18
[2016-10-21] MEDS ORDERED: LACTATED RINGER'S 500 ML IV ONE (12:30)
--- NOTE | 2016-10-21 12:57 | RADRPT ---
PROCEDURE: Renal US. CLINICAL INDICATION: Renal failure, hyperkalemia. TECHNIQUE: Multiple sonographic images of the kidneys were obtained. The images were reviewed on a PACS workstation. COMPARISON: No prior studies are available for comparison. FINDINGS: The right kidney measures 9.9 cm. The left kidney measures 10.3 cm. The kidneys demonstrate normal e chogenicity. No masses, stones or hydronephrosis are identified. The bladder is filled with a moderate amount of urine . The prostate has a volume of 41 cc and caus es impression upon the base of the bladder. IMPRESSION: Unremarkable kidneys. Enlarged prostate that causes impression upon the base of the bladder. Correlation with PSA and phy sical exam should be considered. RPTAT: AA .Miles Saunders MD, Date Time Electronically viewed and signed by .Miles Saunders MD, MD on 10/21/2016 12:57 .P/
[2016-10-21] MEDS: LINAGLIPTIN 5 MG TABLET PO SCH (13:53)
--- NOTE | 2016-10-21 14:45 | CONS ---
Date/Time of Note Date/Time of Note DATE: 10/21/16 TIME: 14:43 Assessment/Plan Assessment/Plan Additional Assessment/Plan 1. Acute kidney injury with hyperkalemia versus possible acute kidney injury on chronic kidney disease, low proteinuric stage II secondary to diabetic nephropathy.also due to Nephrotoxicity from multiple medications 2. History of possible chronic kidney disease stage II secondary to diabetic nephropathy. 3. Acute hyperkalemia secondary to acute kidney injury on chronic kidney disease. 4. Anemia of chronic renal disease. 5. Hypertension. 6. Type 2 diabetes mellitus. 7. History of type 2 diabetes mellitus complicated by diabetic neuropathy and diabetic nephropathy. PLAN: Continue to hold lotensin, Ibuprofen and chlorthalidone use amlodipine for bP conrol if needed Endocrine has been following on patient Cr 1.99- expecting to improve will follow up Consultation Date/Type/Reason Admit Date/Time Oct 20, 2016 at 15:08 Initial Consult Date 10/20/2016 Type of Consultation: NEPHROLOGY Reason for Consultation acute kidney injury on CKD< hyperkalemia Referring Provider: STEFFANIE CHRISTY 24 HR Interval Summary Free Text/Dictation Cr improved to 1.99, K normal , doing ok, no complaints Exam/Review of Systems Vital Signs Vitals Vital Signs Date Time Temp Pulse Resp B/P Pulse Ox O2 Delivery O2 Flow Rate FiO2 10/21/16 08:30 98.4 74 18 156/74 98 10/20/16 18:31 Room Air Intake and Output 10/20/16 10/20/16 10/21/16 15:00 23:00 07:00 Intake Total 1440 ml Output Total 600 ml Balance 840 ml Exam GENERAL: Awake, alert, in no acute distress. HEENT: Normal. Oropharynx clear. NECK: Supple, no JVD, no lymphadenopathy. LUNGS: Clear to auscultation. No crackles, no wheezes. HEART: S1, S2, with regular rhythm, no murmur. ABDOMEN: Soft, nontender, nondistended. Bowel sounds are present. EXTREMITIES: No clubbing or cyanosis. The patient has a mild to 1+ pitting edema. Results Result Diagram: 10/21/16 0509 10/21/16 0509 Results 24 hrs Laboratory Tests Test 10/20/16 18:28 10/20/16 21:35 10/20/16 22:34 10/20/16 22:40 Bedside Glucose 129 75 Sodium Level 146 H Potassium Level 4.4 Chloride Level 108 Carbon Dioxide Level 24 Anion Gap 18 H Blood Urea Nitrogen 48 H Creatinine 2.30 H Glucose Level 100 # Calcium Level 9.5 Urine Eosinophils % 0.0 Urine Random Creatinine 47.63 Urine Random Sodium 131 H Urine Protein/Creatinine Ratio 0.46 Urine Total Protein 22.0 H Test 10/21/16 05:09 10/21/16 08:12 10/21/16 08:34 10/21/16 08:51 White Blood Count 4.9 Red Blood Count 3.27 L Hemoglobin 9.6 L Hematocrit 28.5 L Mean Corpuscular Volume 87.2 Mean Corpuscular Hemoglobin 29.4 Mean Corpuscular Hemoglobin Concent 33.7 Red Cell Distribution Width 12.8 Platelet Count 205 Mean Platelet Volume 9.8 Neutrophils % 56.5 Lymphocytes % 31.0 Monocytes % 8.4 Eosinophils % 3.1 Basophils % 0.6 Nucleated Red Blood Cells % 0.0 Neutrophils # 2.8 Lymphocytes # 1.5 Monocytes # 0.4 Eosinophils # 0.2 Basophils # 0.0 Nucleated Red Blood Cells # 0.0 Sodium Level 142 Potassium Level 4.5 Chloride Level 106 Carbon Dioxide Level 27 Anion Gap 14 Blood Urea Nitrogen 41 H Creatinine 1.99 H Glucose Level 86 Hemoglobin A1c 10.5 H Uric Acid 9.7 H Calcium Level 9.3 Phosphorus Level 4.6 Magnesium Level 1.9 Total Bilirubin 0.3 Direct Bilirubin 0.00 Indirect Bilirubin 0.3 Aspartate Amino Transf (AST/SGOT) 18 Alanine Aminotransferase (ALT/SGPT) 24 Alkaline Phosphatase 51 Creatine Kinase 108 Total Protein 7.4 # Albumin 4.7 Globulin 2.70 Albumin/Globulin Ratio 1.74 Triglycerides Level 77 Cholesterol Level 101 LDL Cholesterol, Calculated 48 HDL Cholesterol 38 Cholesterol/HDL Ratio 2.6 Thyroid Stimulating Hormone (TSH) 1.850 Free Thyroxine 1.22 Parathyroid Hormone (Intact) Hepatitis B Surface Antigen NEGATIVE Bedside Glucose 65 L 95 139 Test 10/21/16 12:02 Bedside Glucose 134 Medications Medications Current Medications Sodium Chloride (NS) 1,000 ml @ 100 mls/hr Q10H IV Last administered on t 05:12; Admin Dose 100 MLS/HR; Start 10/20/16 at 16:44 Ondansetron HCl (Zofran Inj) 4 mg Q6H PRN IV NAUSEA AND/OR VOMITING; Start at 17:00 Acetaminophen (Tylenol Tab) 650 mg Q6H PRN PO PAIN LEVEL 1-3 OR FEVER; Start at 17:00 Acetaminophen/ Hydrocodone Bitart ([place] (5/325)) 1 tab Q6H PRN PO MODERATE PAIN LEVEL 4-6; Start 10/20/16 at 17:00 Morphine Sulfate (morphine) 2 mg Q4H PRN IV SEVERE PAIN LEVEL 7-10; Start 10/20 at 17:00 Magnesium Hydroxide (Milk Of Mag) 30 ml DAILY PRN PO CONSTIPATION; Start at 17:00 Famotidine (Pepcid Iv) 20 mg Q24H IV Last administered on 10/20/16 22:50; Admin Dose 20 MG; Start 10/20/16 at 21:00 Heparin Sodium (Porcine) (Heparin (5000 Units/0.5 ml)) 5,000 unit Q12 SC Last administered on 10/21/16 08:43; Admin Dose 5,000 UNIT; Start 10/20/16 at 21:00 Aspirin (Aspirin) 81 mg DAILY PO Last administered on 10/21/16 08:43; Admin Dose 81 MG; Start 10/21/16 at 09:00 Atorvastatin Calcium (Lipitor) 40 mg QHS PO Last administered on 10/20/16 22: 50; Admin Dose 40 MG; Start 10/20/16 at 21:00 Insulin Glargine (Lantus) 22 unit DAILY@20 SC ; Start 10/20/16 at 20:00 Metoclopramide HCl (Reglan) 5 mg Q6 IV Last administered on 10/21/16 12:08; Admin Dose 5 MG; Start 10/20/16 at 18:00 Hydralazine HCl (Apresoline) 10 mg Q6H PRN IV SBP>160; Start 10/20/16 at 17:30 Miscellaneous Information 1 ea NOTE XX ; Start 10/20/16 at 17:30 Glucose (Glutose) 15 gm Q15M PRN PO DECREASED GLUCOSE; Start 10/20/16 at 17:30 Glucose (Glutose) 22.5 gm Q15M PRN PO DECREASED GLUCOSE; Start 10/20/16 at 17: 30 Dextrose (D50w Syringe) 25 ml Q15M PRN IV DECREASED GLUCOSE; Start 10/20/16 at 17:30 Dextrose (D50w Syringe) 50 ml Q15M PRN IV DECREASED GLUCOSE; Start 10/20/16 at 17:30 Glucagon (Glucagen) 1 mg Q15M PRN IM DECREASED GLUCOSE; Start 10/20/16 at 17:30 Glucose (Glutose) 15 gm Q15M PRN BUCCAL DECREASED GLUCOSE; Start 10/20/16 at 17 :30 Diagnostic Test (Pha) (Accu-Chek) 1 ea 02 XX ; Start 10/21/16 at 02:00 Amlodipine Besylate (Norvasc) 2.5 mg DAILY PO ; Start 10/22/16 at 09:00 Benazepril HCl (Lotensin) 10 mg BID PO ; Start 10/21/16 at 21:00 Linagliptin (Tradjenta) 5 mg DAILY PO Last administered on 10/21/16t 13:53; Admin Dose 5 MG; Start 10/21/16 at 12:30 NAVI BERNARDO MD Oct 21, 2016 14:45
[2016-10-21 20:00] VITALS: BP 111/64; RESP 18
[2016-10-21] MEDS: BENAZEPRIL 10 MG TAB PO SCH (22:25)
[2016-10-21] MEDS: ATORVASTATIN 40 MG TAB PO SCH (22:25)
[2016-10-21] MEDS: FAMOTIDINE 20 MG INJ IV SCH (22:29)
[2016-10-22] MEDS: ACCUCHECK AT 2AM (Patients on SS coverage) XX SCH (01:43)
[2016-10-22] MEDS: INSULIN GLARGINE [LANtus] 3 ML PEN SC SCH ×2 (02:42→21:08)
[2016-10-22] MEDS: METOCLOPRAMIDE 10 MG INJ IV SCH ×4 (05:37→17:38)
[2016-10-22 06:19] LABS: CREATININE 1.38 mg/dl (0.61-1.24); POTASSIUM 4.1 mmol/L (3.5-5.1)
[2016-10-22] MEDS: INSULIN ASPART [NOVOLOG] 3 ML PEN SC SCH ×7 (08:00→21:00)
[2016-10-22 08:08] VITALS: BP 121/66; RESP 16
[2016-10-22] MEDS: HEPARIN 5,000 UNIT/0.5 ML VIAL SC SCH ×2 (08:22→21:07)
[2016-10-22] MEDS: BENAZEPRIL 10 MG TAB PO SCH ×2 (08:23→21:08)
[2016-10-22] MEDS: ASPIRIN 81 MG TAB PO SCH (08:23)
[2016-10-22] MEDS: LINAGLIPTIN 5 MG TABLET PO SCH (08:23)
[2016-10-22] MEDS ORDERED: AMLODIPINE 2.5 MG TAB PO SCH (09:00)
[2016-10-22] MEDS: SOD CHLORIDE 0.9% 1,000 ML IV SCH ×2 (09:18→18:44)
--- NOTE | 2016-10-22 10:26 | PN ---
Date/Time of Note Date/Time of Note DATE: 10/22/16 TIME: 10:22 Assessment/Plan VTE Prophylaxis VTE Prophylaxis Intervention: heparin Lines/Catheters IV Catheter Type (from Nrs): Peripheral IV Assessment/Plan Problems: (1) Hyperlipidemia Status: Chronic Comment: Continue statin therapy Qualifiers: Hyperlipidemia type: pure hypercholesterolemia Qualified Code: E78.00 - Pure hypercholesterolemia (2) Essential hypertension Status: Chronic Comment: Adequate control. I do not believe amlodipine is an appropriate choice in this individual and the lead treatment should be the EDIS inhibitor. EDIS inhibitor did not cause he could not renal insufficiency that was a dehydrational phenomenon. The hydration is better he is tolerating EDIS inhibitors and his creatinine and BUN are falling i.e. returning to baseline. Continue EDIS inhibitor and titrate to original dose of 40 mg today without chlorthalidone (3) Diabetes mellitus type 2 in nonobese Status: Chronic Comment: Adequate control (4) Acute renal failure Status: Acute Comment: Clearing up nicely prerenal was a significant component Qualifiers: Acute renal failure type: unspecified Qualified Code: N17.9 - Acute renal failure, unspecified acute renal failure type (5) Nausea and vomiting Status: Resolved Comment: Gastrointestinal illness that brought this patient has resolved. Most likely discharge in the morning assuming renal function blood pressure and GI tract stuff stays stable Qualifiers: Vomiting type: unspecified Vomiting Intractability: unspecified Qualified Code: R11.2 - Nausea and vomiting, intractability of vomiting not specified, unspecified vomiting type Subjective 24 Hr Interval Summary Free Text/Dictation Patient reports feels improved. No GI tract symptoms. Constitutional: no complaints (Denies fevers chills or sweats) Respiratory: no complaints (No cough no shortness of breath) Cardiovascular: no complaints (No chest pain palpitations PND orthopnea) Gastrointestinal: no complaints Genitourinary: no complaints Neurologic: no complaints Exam/Review of Systems Vital Signs Vitals Vital Signs Date Time Temp Pulse Resp B/P Pulse Ox O2 Delivery O2 Flow Rate FiO2 10/22/16 08:08 98.5 75 16 121/66 98 10/20/16 18:31 Room Air Intake and Output 10/21/16 10/21/16 10/22/16 14:59 22:59 06:59 Intake Total 500 ml 2200 ml 1200 ml Output Total 1157 ml 400 ml Balance 500 ml 1043 ml 800 ml Exam Constitutional: alert, oriented Respiratory: clear to auscultation, normal air movement Cardiovascular: nl pulses, regular rate and rhythm Gastrointestinal: nl liver, spleen, non-tender, soft Results Result Diagram: 10/21/16 0509 10/22/16 0505 Results 24 hrs Laboratory Tests Test 10/21/16 12:02 10/22/16 05:05 10/22/16 07:56 Bedside Glucose 134 105 Sodium Level 137 Potassium Level 4.1 Chloride Level 104 Carbon Dioxide Level 24 Anion Gap 13 Blood Urea Nitrogen 26 #H Creatinine 1.38 H Glucose Level 92 Calcium Level 9.0 Medications Medications Current Medications Sodium Chloride (NS) 1,000 ml @ 100 mls/hr Q10H IV Last administered on 09:18; Admin Dose 100 MLS/HR; Start 10/20/16 at 16:44 Ondansetron HCl (Zofran Inj) 4 mg Q6H PRN IV NAUSEA AND/OR VOMITING; Start at 17:00 Acetaminophen (Tylenol Tab) 650 mg Q6H PRN PO PAIN LEVEL 1-3 OR FEVER; Start at 17:00 Acetaminophen/ Hydrocodone Bitart (Ursa (5/325)) 1 tab Q6H PRN PO MODERATE PAIN LEVEL 4-6; Start 10/20/16 at 17:00 Morphine Sulfate (morphine) 2 mg Q4H PRN IV SEVERE PAIN LEVEL 7-10; Start 10/20 at 17:00 Magnesium Hydroxide (Milk Of Mag) 30 ml DAILY PRN PO CONSTIPATION; Start at 17:00 Famotidine (Pepcid Iv) 20 mg Q24H IV Last administered on 10/21/16 22:29; Admin Dose 20 MG; Start 10/20/16 at 21:00 Heparin Sodium (Porcine) (Heparin (5000 Units/0.5 ml)) 5,000 unit Q12 SC Last administered on 10/22/16 08:22; Admin Dose 5,000 UNIT; Start 10/20/16 at 21:00 Aspirin (Aspirin) 81 mg DAILY PO Last administered on 10/22/16 08:23; Admin Dose 81 MG; Start 10/21/16 at 09:00 Atorvastatin Calcium (Lipitor) 40 mg QHS PO Last administered on 10/21/16 22: 25; Admin Dose 40 MG; Start 10/20/16 at 21:00 Metoclopramide HCl (Reglan) 5 mg Q6 IV Last administered on 10/22/16 05:37; Admin Dose 5 MG; Start 10/20/16 at 18:00 Hydralazine HCl (Apresoline) 10 mg Q6H PRN IV SBP>160; Start 10/20/16 at 17:30 Miscellaneous Information 1 ea NOTE XX ; Start 10/20/16 at 17:30 Glucose (Glutose) 15 gm Q15M PRN PO DECREASED GLUCOSE; Start 10/20/16 at 17:30 Glucose (Glutose) 22.5 gm Q15M PRN PO DECREASED GLUCOSE; Start 10/20/16 at 17: 30 Dextrose (D50w Syringe) 25 ml Q15M PRN IV DECREASED GLUCOSE; Start 10/20/16 at 17:30 Dextrose (D50w Syringe) 50 ml Q15M PRN IV DECREASED GLUCOSE; Start 10/20/16 at 17:30 Glucagon (Glucagen) 1 mg Q15M PRN IM DECREASED GLUCOSE; Start 10/20/16 at 17:30 Glucose (Glutose) 15 gm Q15M PRN BUCCAL DECREASED GLUCOSE; Start 10/20/16 at 17 :30 Diagnostic Test (Pha) (Accu-Chek) 1 ea 02 XX ; Start 10/21/16 at 02:00 Amlodipine Besylate (Norvasc) 2.5 mg DAILY PO ; Start 10/22/16 at 09:00 Benazepril HCl (Lotensin) 10 mg BID PO Last administered on 10/22/16 08:23; Admin Dose 10 MG; Start 10/21/16 at 21:00 Linagliptin (Tradjenta) 5 mg DAILY PO Last administered on 10/22/16 08:23; Admin Dose 5 MG; Start 10/21/16 at 12:30 Insulin Glargine (Lantus) 10 unit DAILY@20 SC Last administered on 10/22/16 02 :42; Admin Dose 10 UNIT; Start 10/22/16 at 22:00 MELYSSA QUINONES MD Oct 22, 2016 10:26
[2016-10-22] MEDS ORDERED: LACTATED RINGER'S 500 ML IV ONE (10:30)
[2016-10-22 20:11] VITALS: BP 144/78; RESP 17
[2016-10-22] MEDS: ATORVASTATIN 40 MG TAB PO SCH (21:08)
[2016-10-22] MEDS: FAMOTIDINE 20 MG INJ IV SCH (21:08)
--- NOTE | 2016-10-22 21:14 | CONS ---
Date/Time of Note Date/Time of Note DATE: 10/22/16 TIME: 21:12 Assessment/Plan Assessment/Plan Additional Assessment/Plan 1. Acute kidney injury with hyperkalemia versus possible acute kidney injury on chronic kidney disease, low proteinuric stage II secondary to diabetic nephropathy.also due to Nephrotoxicity from multiple medications 2. History of possible chronic kidney disease stage II secondary to diabetic nephropathy. 3. Acute hyperkalemia secondary to acute kidney injury on chronic kidney disease. 4. Anemia of chronic renal disease. 5. Hypertension. 6. Type 2 diabetes mellitus. 7. History of type 2 diabetes mellitus complicated by diabetic neuropathy and diabetic nephropathy. PLAN: no Ibuprofe, will resume lotension from tomorrow No chlorthalidone at this time use amlodipine for bP conrol if needed Endocrine has been following on patient Cr improved to 1.38- expecting to improve will follow up Consultation Date/Type/Reason Admit Date/Time Oct 20, 2016 at 15:08 Initial Consult Date 10/20/2016 Type of Consultation: NEPHROLOGY Referring Provider: STEFFANIE CHRISTY 24 HR Interval Summary Free Text/Dictation Cr improved to 1.38 Exam/Review of Systems Vital Signs Vitals Vital Signs Date Time Temp Pulse Resp B/P Pulse Ox O2 Delivery O2 Flow Rate FiO2 10/22/16 20:11 97.8 76 17 144/78 95 10/20/16 18:31 Room Air Intake and Output 10/21/16 10/21/16 10/22/16 15:00 23:00 07:00 Intake Total 500 ml 2200 ml 1200 ml Output Total 1157 ml 400 ml Balance 500 ml 1043 ml 800 ml Exam GENERAL: Awake, alert, in no acute distress. HEENT: Normal. Oropharynx clear. NECK: Supple, no JVD, no lymphadenopathy. LUNGS: Clear to auscultation. No crackles, no wheezes. HEART: S1, S2, with regular rhythm, no murmur. ABDOMEN: Soft, nontender, nondistended. Bowel sounds are present. EXTREMITIES: No clubbing or cyanosis. The patient has a mild to 1+ pitting edema. Results Result Diagram: 10/21/16 0509 10/22/16 0505 Results 24 hrs Laboratory Tests Test 10/22/16 05:05 10/22/16 07:56 10/22/16 12:05 10/22/16 16:55 Sodium Level 137 Potassium Level 4.1 Chloride Level 104 Carbon Dioxide Level 24 Anion Gap 13 Blood Urea Nitrogen 26 #H Creatinine 1.38 H Glucose Level 92 Calcium Level 9.0 Bedside Glucose 105 135 123 Medications Medications Current Medications Sodium Chloride (NS) 1,000 ml @ 100 mls/hr Q10H IV Last administered on 09:18; Admin Dose 100 MLS/HR; Start 10/20/16 at 16:44 Ondansetron HCl (Zofran Inj) 4 mg Q6H PRN IV NAUSEA AND/OR VOMITING; Start at 17:00 Acetaminophen (Tylenol Tab) 650 mg Q6H PRN PO PAIN LEVEL 1-3 OR FEVER; Start at 17:00 Acetaminophen/ Hydrocodone Bitart (Bayard (5/325)) 1 tab Q6H PRN PO MODERATE PAIN LEVEL 4-6; Start 10/20/16 at 17:00 Morphine Sulfate (morphine) 2 mg Q4H PRN IV SEVERE PAIN LEVEL 7-10; Start 10/20 at 17:00 Magnesium Hydroxide (Milk Of Mag) 30 ml DAILY PRN PO CONSTIPATION; Start at 17:00 Famotidine (Pepcid Iv) 20 mg Q24H IV Last administered on 10/22/16 21:08; Admin Dose 20 MG; Start 10/20/16 at 21:00 Heparin Sodium (Porcine) (Heparin (5000 Units/0.5 ml)) 5,000 unit Q12 SC Last administered on 10/22/16 21:07; Admin Dose 5,000 UNIT; Start 10/20/16 at 21:00 Aspirin (Aspirin) 81 mg DAILY PO Last administered on 10/22/16 08:23; Admin Dose 81 MG; Start 10/21/16 at 09:00 Atorvastatin Calcium (Lipitor) 40 mg QHS PO Last administered on 10/22/16 21: 08; Admin Dose 40 MG; Start 10/20/16 at 21:00 Metoclopramide HCl (Reglan) 5 mg Q6 IV Last administered on 10/22/16 17:38; Admin Dose 5 MG; Start 10/20/16 at 18:00 Hydralazine HCl (Apresoline) 10 mg Q6H PRN IV SBP>160; Start 10/20/16 at 17:30 Miscellaneous Information 1 ea NOTE XX ; Start 10/20/16 at 17:30 Glucose (Glutose) 15 gm Q15M PRN PO DECREASED GLUCOSE; Start 10/20/16 at 17:30 Glucose (Glutose) 22.5 gm Q15M PRN PO DECREASED GLUCOSE; Start 10/20/16 at 17: 30 Dextrose (D50w Syringe) 25 ml Q15M PRN IV DECREASED GLUCOSE; Start 10/20/16 at 17:30 Dextrose (D50w Syringe) 50 ml Q15M PRN IV DECREASED GLUCOSE; Start 10/20/16 at 17:30 Glucagon (Glucagen) 1 mg Q15M PRN IM DECREASED GLUCOSE; Start 10/20/16 at 17:30 Glucose (Glutose) 15 gm Q15M PRN BUCCAL DECREASED GLUCOSE; Start 10/20/16 at 17 :30 Diagnostic Test (Pha) (Accu-Chek) 1 ea 02 XX ; Start 10/21/16 at 02:00 Benazepril HCl (Lotensin) 10 mg BID PO Last administered on 10/22/16 21:08; Admin Dose 10 MG; Start 10/21/16 at 21:00 Linagliptin (Tradjenta) 5 mg DAILY PO Last administered on 10/22/16 08:23; Admin Dose 5 MG; Start 10/21/16 at 12:30 Insulin Glargine (Lantus) 10 unit DAILY@20 SC Last administered on 10/22/16 21 :08; Admin Dose 10 UNIT; Start 10/22/16 at 22:00 NAVI BERNARDO MD Oct 22, 2016 21:14
[2016-10-23] MEDS: ACCUCHECK AT 2AM (Patients on SS coverage) XX SCH (02:00)
[2016-10-23] MEDS: SOD CHLORIDE 0.9% 1,000 ML IV SCH (04:44)
[2016-10-23] MEDS: METOCLOPRAMIDE 10 MG INJ IV SCH ×3 (05:58→12:04)
[2016-10-23 06:20] LABS: CALCIUM 9.2 mg/dl (8.4-10.2); CREATININE 1.09 mg/dl (0.61-1.24); POTASSIUM 3.8 mmol/L (3.5-5.1)
[2016-10-23 07:57] VITALS: BP 155/78; RESP 18
[2016-10-23] MEDS: INSULIN ASPART [NOVOLOG] 3 ML PEN SC SCH ×4 (08:00→12:05)
[2016-10-23] MEDS: ASPIRIN 81 MG TAB PO SCH (08:41)
[2016-10-23] MEDS: LINAGLIPTIN 5 MG TABLET PO SCH (08:41)
[2016-10-23] MEDS: BENAZEPRIL 10 MG TAB PO SCH (08:41)
[2016-10-23] MEDS: HEPARIN 5,000 UNIT/0.5 ML VIAL SC SCH (08:43)
[2016-10-23] MEDS ORDERED: ONDA4TAB14 PO (09:29)
[2016-10-23] MEDS ORDERED: METO5TAB2 PO (09:29)
[2016-10-23] MEDS ORDERED: LINA5TAB PO (09:30)
[2016-10-23] MEDS ORDERED: NOVO3I SC (09:30)
[2016-10-23] MEDS ORDERED: LANT3I SC (09:30)
[2016-10-23] MEDS ORDERED: BENA10TA48 PO (09:30)
[2016-10-23] MEDS ORDERED: ASPI81TA3 PO (09:30)
--- NOTE | 2016-10-23 10:53 | PDOCDIS ---
Discharge Instructions DIAGNOSIS Discharge Diagnosis: 1. nausea and vomiting suspect secondary to diabetic gastroparesis 2. SCOTTIE CONDITION Patient Condition: Stable HOME CARE INSTRUCTIONS: Special Diet: Carb controlled FOLLOW UP/APPOINTMENTS Appointments 1. Follow up with your primary care provider in one week 2. Follow up with Dr. Saurav Mosley in one week 3. Follow up with Dr. Rusty Johnson in one week MANI SINGH Oct 23, 2016 10:53
--- NOTE | 2016-10-23 14:03 | CONS ---
Date/Time of Note Date/Time of Note DATE: 10/23/16 TIME: 14:02 Assessment/Plan Assessment/Plan Additional Assessment/Plan 1. Acute kidney injury with hyperkalemia versus possible acute kidney injury on chronic kidney disease, low proteinuric stage II secondary to diabetic nephropathy.also due to Nephrotoxicity from multiple medications 2. History of possible chronic kidney disease stage II secondary to diabetic nephropathy. 3. Acute hyperkalemia secondary to acute kidney injury on chronic kidney disease. 4. Anemia of chronic renal disease. 5. Hypertension. 6. Type 2 diabetes mellitus. 7. History of type 2 diabetes mellitus complicated by diabetic neuropathy and diabetic nephropathy. PLAN: ok to resume lotensin No chlorthalidone at this time use amlodipine for bP conrol if needed Endocrine has been following on patient Cr improved to 1.38- expecting to improve will follow up Consultation Date/Type/Reason Admit Date/Time Oct 20, 2016 at 15:08 Initial Consult Date 10/20/2016 Type of Consultation: NEPHROLOGY Referring Provider: STEFFANIE CHRISTY 24 HR Interval Summary Free Text/Dictation doing ok, BP stable, plan for d/c home today Exam/Review of Systems Vital Signs Vitals Vital Signs Date Time Temp Pulse Resp B/P Pulse Ox O2 Delivery O2 Flow Rate FiO2 10/23/16 07:57 98.3 82 18 155/78 98 10/20/16 18:31 Room Air Intake and Output 10/22/16 10/22/16 10/23/16 15:00 23:00 07:00 Intake Total 2440 ml 500 ml Output Total 2380 ml Balance 60 ml 500 ml Exam GENERAL: Awake, alert, in no acute distress. HEENT: Normal. Oropharynx clear. NECK: Supple, no JVD, no lymphadenopathy. LUNGS: Clear to auscultation. No crackles, no wheezes. HEART: S1, S2, with regular rhythm, no murmur. ABDOMEN: Soft, nontender, nondistended. Bowel sounds are present. EXTREMITIES: No clubbing or cyanosis. The patient has a mild to 1+ pitting edema. Results Result Diagram: 10/21/16 0509 10/23/16 0530 Results 24 hrs Laboratory Tests Test 10/22/16 16:55 10/22/16 21:05 10/23/16 05:30 10/23/16 07:57 Bedside Glucose 123 142 66 L Sodium Level 138 Potassium Level 3.8 Chloride Level 103 Carbon Dioxide Level 26 Anion Gap 13 Blood Urea Nitrogen 24 H Creatinine 1.09 Glucose Level 64 #L Calcium Level 9.2 Test 10/23/16 08:24 10/23/16 08:40 10/23/16 11:59 Bedside Glucose 91 119 94 NAVI BERNARDO MD Oct 23, 2016 14:03
--- NOTE | 2016-10-23 16:57 | DS ---
Date/Time of Note Date/Time of Note DATE: 10/23/16 TIME: 16:56 Discharge Summary Admission/Discharge Info Admit Date/Time Oct 20, 2016 at 15:08 Discharge Date/Time Oct 23, 2016 at 12:45 Final Diagnosis 1. Nausea vomiting suspect secondary to diabetic gastroparesis 2. Acute renal failure 3. Essential hypertension 4. Diabetes 5. Dyslipidemia Patient Condition: Stable Consults 1. Dr. Mg Mosley [facility] This is a 76-year-old male with history of type 2 diabetes, diabetic neuropathy , PVD, essential hypertension, acidemia, diabetic foot ulcer, came to [facility] due to reports of intractable nausea and vomiting that had been going on for 3 weeks duration. Patient initially was seen in emergency room on October 19, 2016 but was discharged home. He did come back next day due to worsening symptoms and complaints. Patient was also seen initially with acute renal failure with creatinine of 3.16 and a BUN of 51. Patient was seen by associate quality engineer. He did have his medications renally dose and likely his acute kidney injury may have been due from nephrotoxicity of multiple medications. Patient did have his chlorthalidone discontinued. After review by associate quality engineer he did get resumed on Lotensin. He did have a response. His renal function did improve. Is otherwise optimized medically. He was diabetic and was placed on insulin regimen. He was also provided with regular medication and antiemetics. He is also continued on antihypertensives for his hypertension and statin medication for his dyslipidemia. During his course of stay he did improve. He did report resolution of his abdominal pain and did not have any further nausea vomiting. He was instructed to follow-up with orthopedic tech as well as associate quality engineer within a week. The plan of care was discussed with the patient and patient did verbalizes understanding. On the day of discharge patient was in stable condition Discussed plan of care with Dr. [facility] Active Scripts Linagliptin (TRADJENTA) 5 Mg Tablet, 5 MG PO DAILY for 30 Days, TAB Prov:MANI SINGH 10/23/16 Insulin Glargine* (Lantus*) 100 Unit/Ml Soln, 10 UNIT SC DAILY@20 for 30 Days Prov:MANI SINGH 10/23/16 Insulin Aspart* (Novolog Insulin Pen*) 100 Unit/Ml Soln, 7 UNIT SC WITH MEALS for 30 Days Prov:MANI SINGH 10/23/16 Benazepril Hcl* (Benazepril Hcl*) 10 Mg Tablet, 10 MG PO BID for 30 Days, TAB Prov:EVELINAJENNIFERMANI 10/23/16 Aspirin (Aspirin) 81 Mg Chew, 81 MG PO DAILY for 30 Days, TAB Prov:MANI SINGH 10/23/16 Ondansetron (Ondansetron Odt) 4 Mg Tab.rapdis, 4 MG PO Q6H Y for NAUSEA AND/OR VOMITING, #30 TAB Prov:MANI SINGH 10/23/16 Metoclopramide Hcl (Reglan) 5 Mg Tab, 5 MG PO Q8H for 14 Days, TAB Prov:MANI SINGH 10/23/16 Collagenase* (Santyl*) 30 Gm Oint..gm., 1 APPLIC TOP DAILY, #30 G 1 Refill Prov:STEFFANIE CHRISTY 05/20/16 Reported Medications Atorvastatin* (Atorvastatin*) 40 Mg Tablet, 40 MG PO QHS, #30 TAB 07/24/15 Amlodipine Besylate* (Amlodipine Besylate*) 10 Mg Tablet, 10 MG PO DAILY, #30 TAB 07/24/15 Discontinued Reported Medications Benazepril Hcl* (Benazepril Hcl*) 40 Mg Tablet, 40 MG PO DAILY, #30 TAB 11/28/15 Aspirin* (Aspirin* Chew) 81 Mg Tab.chew, 81 MG PO DAILY, TAB.CHEW 07/24/15 Chlorthalidone* (Chlorthalidone*) 25 Mg Tablet, 25 MG PO DAILY, TAB 07/24/15 Discontinued Scripts Daptomycin (Daptomycin) 500 Mg Vial, 360 MG IV DAILY for 42 Days, VIAL Prov:NURY WARE MD 07/03/16 Ceftriaxone Sod* (Rocephin* 1GM/50ML (PMX)) 1 Gm/50 Ml Iv.soln., 1 GM IVPB Q24H for 42 Days, EA Prov:NURY WARE MD 07/03/16 Ibuprofen* (Ibuprofen*) 600 Mg Tablet, 600 MG PO Q8 for PAIN AND/OR INFLAMMATION , #30 TAB Prov:NANDINI HOYT MD 05/25/16 Insulin Glargine* (Lantus*) 100 Unit/Ml Soln, 22 UNIT SC HS for 30 Days, 2 Refills Prov:STEFFANIE CHRISTY. 05/20/16 Insulin Aspart* (Novolog Insulin Pen*) 100 Unit/Ml Soln, 7 UNIT SC WITH MEALS for 30 Days, 1 Refill Prov:STEFFANIE CHRISTY. 05/20/16 Glipizide* (Glipizide*) 5 Mg Tablet, 5 MG PO BID, #60 TAB Prov:STEFFANIE CHRISTY. 05/20/16 Follow-up Plan CONDITION Patient Condition: Stable HOME CARE INSTRUCTIONS: Special Diet: Carb controlled FOLLOW UP/APPOINTMENTS Appointments 1. Follow up with your primary care provider in one week 2. Follow up with Dr. Saurav Mosley in one week 3. Follow up with Dr. Rusty Johnson in one week Primary Care Provider Care Physician No Primary Pending Labs Laboratory Tests Test 10/22/16 21:05 10/23/16 05:30 10/23/16 07:57 10/23/16 08:24 Bedside Glucose 142mg/dL (70-220) 66mg/dL (70-220) 91mg/dL (70-220) Sodium Level 138mmol/L (135-144) Potassium Level 3.8mmol/L (3.5-5.1) Chloride Level 103mmol/L (97-110) Carbon Dioxide Level 26mmol/L (21-31) Anion Gap 13 (8-16) Blood Urea Nitrogen 24mg/dl (7-20) Creatinine 1.09mg/dl (0.61-1.24) Glucose Level 64mg/dl (70-220) Calcium Level 9.2mg/dl (8.4-10.2) Test 10/23/16 08:40 10/23/16 11:59 Bedside Glucose 119mg/dL (70-220) 94mg/dL (70-220) MANI SINGH Oct 23, 2016 16:57
== END 2016-10-23 12:45 | disposition home or self-care (01) | DRG 74 ==
LOC: FTE 11:05 → PP2 15:08
PROVIDERS: ADMIT Family Medicine; ATTEND Family Medicine
DX: E11.43 Type 2 diabetes mellitus with diabetic autonomic (poly)neuropathy (principal); N17.9 Acute kidney failure, unspecified; E11.22 Type 2 diabetes mellitus with diabetic chronic kidney disease; E87.5 Hyperkalemia; E86.0 Dehydration; D63.1 Anemia in chronic kidney disease; I12.9 Hypertensive chronic kidney disease with stage 1 through stage 4 chronic kidney disease, or unspecified chronic kidney disease; N18.2 Chronic kidney disease, stage 2 (mild); K31.84 Gastroparesis; E78.5 Hyperlipidemia, unspecified; E11.40 Type 2 diabetes mellitus with diabetic neuropathy, unspecified; Z79.82 Long term (current) use of aspirin; Z79.4 Long term (current) use of insulin; Z89.421 Acquired absence of other right toe(s)
CPT/HCPCS: 76775; 80048; 80053; 80061; 81001; 81003; 82150; 82306; 82550; 82570; 82962; 83036; 83690; 83735; 83970; 84100; 84300; 84439; 84443; 84484; 84560; 85025; 85610; 85730; 87340; 89190; 93005; 96372; 96374; 96375; J1644; J1815; J2405; J2765; J7030; J7120

== ENCOUNTER 2018-01-10 19:30 | Inpatient (IN) | END 2018-01-19 22:30 | disposition EXP | DRG 870 ==